=== PATIENT | female | born 1935 | race Caucasian/White ===

== ENCOUNTER 2018-02-05 05:35 | Observation (INO) | payer MEDICARE ==
[2018-02-05] MEDS ORDERED: NS 0.9% 1000 ML* 1,000 ML IV ONE (05:49)
--- OUTSIDE RECORDS SUMMARY | 2018-02-05 05:51 | XMS REPORT ---
:1935 External Reference #:[id number] Author Organization [facility] Address [address] [address] Phone [phone] Care Team Providers Name Role Phone Samuel Dinero MD Primary Care Physician Unavailable Payers Type Date Identification Numbers Payment Provider Subscriber Commercial Policy Number: [id number] [employer] Medicare Jessie Panda PayID: [id number] [address] [place] [address] Health Maintenance Effective: Policy Number: [place] [place] 10/26/2012 [id number] Aj Panda Expires: 10/21/2014 PayID: [id number] [address] [address] SHRUTI Matos [address] Medigap Part B Expires: 04/21/2010 Policy Number: [id number] BS Of ZOYA Panda PayID: [id number] [address] [address] SHRUT[place] Matos [address] Medigap Part B Effective: 04/21/2010 Policy Number: BS Of ZOYA Panda [id number] Expires: 10/22/2011 PayID: [id number] [address] [address] SHRUTI Matos [address] Medigap Part B Effective: 11/22/2011 Policy Number: JERRY Alfonzo Panda [id number] Expires: 09/21/2012 PayID: [id number] [address] [address] SHRUTI Matos [address] Problems Date Description Provider Status Onset: 03/13/2013 Monoclonal paraproteinemia Samuel Dinero M.D.,FACP Active Onset: 02/09/2017 Chronic kidney disease stage 3 Royce Jim NP Active Onset: 10/28/2007 Essential hypertension Samuel Dinero M.D.,FACP Active Onset: 10/28/2007 Mixed hyperlipidemia Samuel Dinero M.D.,FACP Active Onset: 10/28/2007 Allergic rhinitis Samuel Dinero M.D.,FACP Active Onset: 12/19/2007 Osteoarthritis Samuel Dinero M.D.,FACP Active Onset: 06/27/2011 Sciatica Ilda Acuna, N.P. Active Onset: 11/08/2012 Gout Samuel Dinero M.D.,FACP Active Onset: 01/27/2013 Impaired fasting glycaemia Samuel Dinero M.D.,FACP Active Onset: 08/30/2015 Do not resuscitate Samuel Dinero M.D.,FACP Active Onset: 08/24/2017 Anemia Samuel Dinero M.D.,FACP Active Note: related to CKD, not iron-def Onset: 01/12/2011 Benign essential hypertension Samuel Dinero M.D.,FACP Inactive Inactive: 01/27/2013 Onset: 01/25/2011 Pancytopenia Samuel Dinero M.D.,FACP Inactive Inactive: 01/27/2013 Onset: 10/26/2009 Disorder of iron metabolism Samuel Dinero M.D.,FACP Inactive Inactive: 08/24/2017 Onset: 10/28/2007 Osteoporosis Samuel Dinero M.D.,FACP Resolved Resolved: 01/26/2012 Family History Date Family Member(s) Problem(s) Comments Father due to Vascular Disease () Mother due to [place] () Mother Hypertension Mother due to Stroke () Mother Angina Children 2 Children , no liver disease Social History Type Date Description Comments Marital Status Occupation Retired Cigarette Use Never Smoked Cigarettes ETOH Use 10/23/2017 Denies alcohol use Recreational Drug Use Denies Drug Use Smoking Patient has never smoked General Hx Text 2 kids Allergies, Adverse Reactions, Alerts Date Description Reaction Status Severity Comments 10/28/2007 Pneumovax active 10/28/2007 Sulfa active 04/27/2008 shellfish sensity can have small amounts active gi distress 02/20/2011 Citalopram active N/V/dizzy 09/08/2013 CT Contrast Dye active Medications Medication Date Status Form Strength Qnty SIG Indications Ordering Provider Gingeratusgiuliano ac 02/04 Active Syrup 100-10mg/ 473ml 10 5ML milliliter Bennett Dinero, s by mouth M.D.,FACP four times a day as needed Oseltamivir 01/31 Active Capsules 75mg 10cap 1 by mouth Luisa Phosphate s twice Cotton, daily for M.D. 5 days Lisinopril 09/05 Active Tablets 10mg 90tab 1 by I10 s mouth Bennett Dinero, every day M.D.,FACP Ipratropium 07/19 Active Solution 0.03% 30ml spray 1-2 D47.2 Beatrice sprays in Bennett Dinero, each M.D.,FACP nostril before meals as needed Lipitor 06/02 Active Tablets 20mg 90tab Take 1 E78.2 Darnell s Tablet Pachikara, Every M.D. Evening Proair HFA 03/22 Active Aerosol 108(90Bas 1unit 1 puff 786.07 Royce e) s every 4 Finnish, [employer] mcg/Act hours as needed for chest tightness or wheezing Hydrocodone-Acet 07/16 Active Tablets 5-325mg 30tab 1/2-1 tab M54.5 Samuel aminophen s by mouth Bennett Dinero, q4 hours M.D.,FACP as needed pain Systane 04/27 Active Solution prn Samuel Bennett Dinero M.D.,FACP Citracal + D 10/28 Active Tablets 1Tab 1 po qd Samuel Bennett Dinero M.D.,FACP C-500 Active 2 po qd Samuel Bennett Dinero M.D.,FACP Fatoumata Low Active Tablets DR 81mg I10 Samuel Bennett Dinero M.D.,FACP Vitamin B12 Active Tablets ER 500mg 1 po per Unknown /0000 day Tylenol 00 Active Tablet 500mg/15M 1-2 every Unknown 0000 L 6 hours or prn Docusate Calcium Active Capsules 240mg 90cap 1 by mouth Unknown s daily as needed for constipati on Fish Oil Active Capsules 1000mg 2 by mouth every day Loratadine Active Tablets 10mg 1/2 by Unknown mouth every day One Daily For Active Tablets 1 by mouth Unknown every day Cheratussin ac 10/25 Hx Syrup 100-10mg/ 473ml 10 5ML milliliter Bennett Dinero, - s by mouth M.D[facility] 11/04 four times /2017 a day as needed Tamiflu 10/23 Hx Capsules 75mg 10cap 1 by mouth J11.89 s twice a Bennett Dinero, - day x 5 M.D.,[facility] Irbesartan 08/24 Hx Tablets 150mg 30tab 1 by mouth I10 s every day Bennett Dinero, - M.Bennett,[facility] 09/05 Betamethasone 03/07 Hx Cream 0.05% 15gm apply L23.9 Royce Dipropionate topically Hernán [employer] - to 08/23 effect area bid till rash resolves Tamiflu 11/28 Hx Capsules 75mg 10cap 1 cap by J11.1 Royce s mouth NEIDA Jim - twice a 12/03 day x's days Lisinopril 09/28 Hx Tablets 10mg 135ta 1 /2 by I10 Samuel /2015 bs mouth Bennett Dinero, - every day M.DPeter,[facility] 08/24 Macrobid 08/25 Hx Capsules 100mg 10cap 1 cap by N39.0 Royce s mouth q12 Hernán [employer] - hours x 08/30 5d Triamcinolone 06/05 Hx Cream 0.1% 30g apply L30.9 Samuel Acetonide /2015 every day Bennett Dinero, - as needed M.DPeter,[facility] 08/23 to on feet/legs Dymista 06/05 Hx Suspension 137-50mcg 69gm 1 spray D47.2 Samuel /2015 /Act each Bennett Dinero, - nostril M.D.,FACP 07/19 daily prn Fluticasone 06/05 Hx Suspension 50mcg/Act 1unit Use 1 J02.9 Samuel s [place] In Bennett Dinero, - Each M.D.,FACP 08/09 Nostril Once Daily In The Morning Amoxicillin/Clav Hx Tablets 875-125mg 20tab 1 tablet J01.90 Royce ulanate /2015 s by mouth Finnish, [employer] Potassium - twice a 12/29 day x's days Tessalon Perles Hx Capsules 100mg 30cap 1 capsule J01.90 Royce s by mouth Finnish, [employer] - three 01/02 times a day as needed Gabapentin 08/30 Hx Capsules 100mg 60cap 1-2 tabs G47.62 s po qhs to Bennett Dinero, - prevent M.D.,FACP 09/06 leg cramps. Flonase Allergy 06/29 Hx Suspension 50mcg/Act 16uni Use 2 J02.9 Royce Relief ts Sprays In Finnish, [employer] - Each 06/05 Nostril Daily In The Morning. Triamcinolone 03/22 Hx Cream 0.1% 1unit apply 782.1 Royce Acetonide s topically Finnish, [employer] - twice a 04/01 day to affected area Flonase 03/22 Hx Suspension 50mcg/Act 16uni Use 2 ts Sprays In Bennett Dinero, - Each M.D.,FACP 06/29 Nostril Daily In The Morning. Tessalon Perles 10/30 Hx Capsules 100mg 30cap 1-2 by s mouth Bennett Dinero, - three M.D.,FACP 01/28 times a day as needed Lisinopril 02/11 Hx Tablets 20mg 30tab Take 10/23 s Tablet By Bennett Dinero, - Mouth Once M.D.,FACP 11/27 Daily Flector 11/08 Hx Patches 1.3% 30uni topically 715.16 ts qd prn Ryley Marquez M.D.,[facility] 03/25 Naproxen 11/04 Hx Tablets 500mg 60tab 1 po bid s prn Ryley Marquez M.D.,[facility] 11/08 Colcrys 10/21 Hx Tablets 0.6mg 30tab 2 tabs po s X1, then Bennett Dinero, - repeat 1 M.DPeter,[facility] 07/10 tab in hr, then qd prn Indomethacin 10/11 Hx Capsules 50mg 12cap 1 cap po s tid x 2 Kalpana, - days, 1 N.P. 10/21 cap bid 2 days, 1 cap qd x 2 days Finger Splint 10/03 Hx Misc 1unit please fit 719.44 s Kalpana, - N.P. 11/08 Zestril 06/28 Hx Tablets 10mg 90tab 1 po qd Ryley Obregon M.D.,[facility] 02/11 Meclizine HCL 03/08 Hx Tablets 12.5mg 30tab bid prn 780.4 Ryley Obregon M.D.,[facility] 03/27 Atorvastatin 02/14 Hx Tablets 20mg 90tab take 1 272.2 s tablet by Bennett Dinero, - mouth in M.DPeter,[facility] 06/02 evening Gas-X Extra 09/12 Hx Chewtabs 125mg Kika Strength /2010 Ryley Anderson M.D. 01/25 Cyclobenzaprine 09/12 Hx Tablets 5mg 5tabs 1 tab by 848.3 Kika HCL /2010 mouth Justin, - every M.D. 09/26 Hydrocodone 06/27 Hx Tablets 5-500mg 30tab 10/23 tab 724.3 Samuel Bitartrate/Apap s qhs prn Ryley Marquez M.D.,[facility] 11/08 Simethicone 08/23 Hx Chewtabs 80mg 120un 1 tab PO 787.3 its qid prn Ryley Marquez M.D.,[facility] 06/27 Align 06/13 Hx Capsules 4mg 30cap 1 po qd 787.3 s Ryley Marquez M.D.,[facility] 03/27 Citrucel 06/13 Hx Tablets 500mg 60tab 2 tab po 787.3 s qd Ryley Marquez M.D.,[facility] 09/12 Fluticasone 05/22 Hx Suspension 50mcg/Act 1unit Use 2 Samuel Propionate s Sprays In Bennett Dinero, - Each M.DPeter,[facility] 11/08 Nostril Once Daily In The Morning. Fluticasone 05/22 Hx Suspension 50mcg/Act 16uni Use 2 Propionate ts Sprays In Bennett Dinero, - Each M.DPeter,[facility] 03/22 Nostril Once Daily In The Morning Citalopram 01/12 Hx Tablets 10mg 90tab 1 po qd 780.79 Samuel Hydrobromide Ryley Obregon M.D.,[facility] 02/20 Alendronate 01/10 Hx Tablets 70mg 4tabs Take 1 Sodium Tablet By Bennett Dinero, - Mouth Once M.D.,[facility] 01/12 Weekly. Amoxicillin/Clav 11/15 Hx Tablets 875-125mg 20tab 1 po bid 461.9 Darnell anate s Susan Juares M.D. 01/09 Folic Acid 07/14 Hx Tablets 1mg 30tab Take 1 D52.9 Royce s Tablet By NEIDA Jim - Mouth 11/28 Daily. (not taking) Doxycycline 06/28 Hx 100mg 20uni 1 cap bid 066.1 Ryley Santiago M.D. 07/14 Doxycycline 06/23 Hx 100mg 20uni 1 cap bid Ryley Santiago M.D. 06/28 Hydrocodone-Acet 06/08 Hx Tablets 5/500mg 10tab 1 q6 hours 477.9 Pb Murillo aminophen /2008 s prn Ryley Marquez M.D.,[facility] 01/12 Lipitor 01/02 Hx Tablets 20mg 90tab Take 1 272.2 s Tablet By Bennett Dinero, - Mouth In M.DPeter,[facility] 02/14 Evening Foltx Hx Tablets 90tab Daily 281.2 Samuel Ryley Obregon M.D.,[facility] 07/14 Fluticasone Hx Suspension 50mcg/Act 1unit 1 [place] Samuel Propionate / kody Dinero, - Nostril In Vanessa.DPeter,[facility] 02/20 Simvastatin Hx Tablets 20mg 30tab 1 PO qpm Samuel Ryley Obregon M.D.,[facility] 01/02 Abc Plus Multi Hx one daily Sameul Vitamin Ryley Marquez M.D.,[facility] 03/25 Fosamax Hx Tablets 70mg 4tabs 1 Tablet Darnell po Weekly Ryley Juares M.D. 01/10 [place]-3 Hx Capsules 1000mg 1PO qd Samuel Ryley Marquez M.D.,[facility] 01/28 Citracal Hx 400Iu one daily Samuel Ryley Marquez M.D.,[facility] 10/28 Econazole Hx Cream 1% 15Gra Apply To Unknown Nitrate ms Affected - Area bid 01/25 Max Weeks Fluticasone Hx apply to Unknown Propionate affected - area as 02/20 Vitamin C Hx Tablets 500mg 1 po qd - 09/12 Vitamin B-12 LA Hx Tablets ER 1000mcg 1 daily Unknown - 03/27 Lisinopril Hx Tablets 20mg 30tab Take 1/2 Samuel s Tablet By Bennett Dinero, - Mouth Once M.DPeter,[facility] 06/28 Hydrocodone/Acet 00 Hx Tablets 5-500mg 60tab 1/2-1 Samuel aminophen /0000 s tablet q4h Bennett Dinero, - prn M.D.,[facility] 09/12 Benadryl Hx Capsules 25mg 30cap 1 po q4h Unknown /0000 s for - allergy to 01/28 dye Clarinex Hx Tablets 5mg 30tab Take 1 Samuel /0000 s Tablet By Bennett Dinero, - Mouth Once M.D.,[facility] 11/28 Immunizations CPT Code Status Date Vaccine Lot # [id number] Given 08/24/2017 Influenza Virus Vaccine, Quadrivalent, Split, [id number] Preservative Free 74601 Given 08/09/2016 Influenza Virus Vaccine, Quadrivalent, Split [id number] Virus, [place] Use [address] Given 08/03/2015 Fluzone High Dose 10664 Given 08/10/2014 Tdap - Tetanus/Diptheria/Acellular Pertussis [id number] 54926 Given 08/10/2014 Flu Vaccine Split Virus Preservative Free For Indiv 3Yr Older 07974 Given 08/10/2014 Flu Vaccine Split Virus Preservative Free For [id number] Indiv 3Yr Older 86262 Given 07/16/2013 Flu Vaccine Split Virus Preservative Free For [id number] Indiv 3Yr Older Q2038 Given 07/17/2012 Fluzone Vaccine [id number] Given 07/28/2011 Afluria Vaccine [id number] 56438 Given 08/17/2010 Influenza Virus 3Yrs & Over [id number] 70508 Given 10/01/2009 Influenza Virus Vaccine, Pandemic Formulation 25712 Given 10/01/2009 Influenza Virus Vaccine, Pandemic Formulation [id number] [id number] 66986 Given 08/05/2009 Influenza Virus 3Yrs & Over 99763 Given 08/05/2009 Influenza Virus 3Yrs & Over [id number] 85974 Given 07/31/2008 Influenza Virus 3Yrs & Over 90478 Given 07/31/2008 Influenza Virus 3Yrs & Over [id number] 68813 Given 08/05/2007 Zoster (Zostavax) 06975 Given 10/22/2002 Td Toxoids Adsorbed For Use 7Yrs Or Older For Intramuscular Use 56369 Refused 01/26/2012 Pneumonia Vaccine Vital Signs Date Vital Result Comment 01/31/2018 Weight 198.00 lb Heart Rate 92 /min BP Systolic Sitting 152 mmHg BP Diastolic Sitting 80 mmHg Body Temperature 99.6 F O2 % BldC Oximetry 95 % 10/23/2017 Weight 202.00 lb w/coat and shoes Heart Rate 86 /min BP Systolic Sitting 168 mmHg BP Diastolic Sitting 84 mmHg Body Temperature 99.3 F O2 % BldC Oximetry 95 % 09/27/2017 Weight 199.00 lb Heart Rate 88 /min BP Systolic Sitting 148 mmHg BP Diastolic Sitting 62 mmHg Body Temperature 98.1 F O2 % BldC Oximetry 98 % 09/18/2017 Weight 195.25 lb Heart Rate 73 /min BP Systolic Sitting 118 mmHg BP Diastolic Sitting 72 mmHg O2 % BldC Oximetry 99 % 08/24/2017 Height 65.5 inches 5'5.50" Weight 201.00 lb Heart Rate 84 /min BP Systolic Sitting 138 mmHg BP Diastolic Sitting 70 mmHg Body Temperature 98.4 F O2 % BldC Oximetry 98 % BMI (Body Mass Index) 32.9 kg/m2 07/19/2017 Weight 197.00 lb Heart Rate 81 /min BP Systolic Sitting 144 mmHg BP Diastolic Sitting 66 mmHg Body Temperature 98.5 F O2 % BldC Oximetry 97 % 03/07/2017 Weight 195.38 lb Heart Rate 83 /min BP Systolic 116 mmHg BP Diastolic 68 mmHg Body Temperature 98.4 F O2 % BldC Oximetry 94 % 02/09/2017 Height 65.5 inches 5'5.50" Weight 193.50 lb Heart Rate 87 /min BP Systolic Sitting 126 mmHg BP Diastolic Sitting 70 mmHg Body Temperature 99.0 F O2 % BldC Oximetry 97 % BMI (Body Mass Index) 31.7 kg/m2 12/19/2016 Weight 197.25 lb Heart Rate 82 /min BP Systolic Sitting 134 mmHg BP Diastolic Sitting 70 mmHg Body Temperature 9.8 F O2 % BldC Oximetry 97 % 11/28/2016 Weight 190.00 lb Heart Rate 75 /min BP Systolic Sitting 140 mmHg BP Diastolic Sitting 64 mmHg Body Temperature 99.0 F O2 % BldC Oximetry 98 % 08/25/2016 Height 66 inches 5'6" Weight 192.00 lb Heart Rate 92 /min BP Systolic Sitting 108 mmHg BP Diastolic Sitting 62 mmHg Body Temperature 99.2 F O2 % BldC Oximetry 96 % BMI (Body Mass Index) 31.0 kg/m2 08/09/2016 Height 66 inches 5'6" Weight 194.00 lb Heart Rate 68 /min BP Systolic Sitting 142 mmHg BP Diastolic Sitting 78 mmHg Body Temperature 97.7 F O2 % BldC Oximetry 96 % BMI (Body Mass Index) 31.3 kg/m2 06/05/2016 Weight 192.00 lb Heart Rate 75 /min BP Systolic 118 mmHg BP Diastolic 70 mmHg Body Temperature 98.2 F O2 % BldC Oximetry 97 % 02/21/2016 Weight 187.00 lb Heart Rate 88 /min BP Systolic Standing 138 mmHg BP Diastolic Standing 80 mmHg Body Temperature 98.7 F Pain Level 10 L lower back, buttock, legs O2 % BldC Oximetry 95 % 02/04/2016 Height 66 inches 5'6" Weight 192.00 lb Heart Rate 78 /min BP Systolic Sitting 138 mmHg BP Diastolic Sitting 78 mmHg Body Temperature 97.0 F O2 % BldC Oximetry 98 % BMI (Body Mass Index) 31.0 kg/m2 12/20/2015 Height 66 inches 5'6" Weight 190.50 lb Heart Rate 80 /min BP Systolic Sitting 138 mmHg BP Diastolic Sitting 80 mmHg Body Temperature 98.4 F O2 % BldC Oximetry 96 % BMI (Body Mass Index) 30.7 kg/m2 10/01/2015 Height 66 inches 5'6" Weight 197.50 lb Heart Rate 70 /min BP Systolic Sitting 134 mmHg BP Diastolic Sitting 60 mmHg Body Temperature 98.3 F O2 % BldC Oximetry 96 % BMI (Body Mass Index) 31.9 kg/m2 08/30/2015 Height 66 inches 5'6" Weight 189.00 lb Heart Rate 80 /min BP Systolic Sitting 104 mmHg BP Diastolic Sitting 60 mmHg Body Temperature 97.6 F O2 % BldC Oximetry 97 % BMI (Body Mass Index) 30.5 kg/m2 03/22/2015 Height 66 inches 5'6" Weight 195.00 lb Heart Rate 81 /min BP Systolic Sitting 134 mmHg BP Diastolic Sitting 70 mmHg Body Temperature 97.5 F O2 % BldC Oximetry 97 % BMI (Body Mass Index) 31.5 kg/m2 01/29/2015 Height 66 inches 5'6" Weight 198.00 lb Heart Rate 74 /min BP Systolic Sitting 118 mmHg BP Diastolic Sitting 68 mmHg Body Temperature 98.1 F O2 % BldC Oximetry 95 % BMI (Body Mass Index) 32.0 kg/m2 08/10/2014 Weight 195.25 lb Heart Rate 84 /min BP Systolic Sitting 128 mmHg BP Diastolic Sitting 66 mmHg Body Temperature 98.7 F 07/16/2014 Height 66 inches 5'6" Weight 195.50 lb Heart Rate 69 /min BP Systolic Sitting 122 mmHg BP Diastolic Sitting 68 mmHg Body Temperature 97.3 F O2 % BldC Oximetry 98 % BMI (Body Mass Index) 31.6 kg/m2 01/28/2014 Height 66 inches 5'6" Weight 210.75 lb Heart Rate 80 /min BP Systolic Sitting 144 mmHg BP Diastolic Sitting 75 mmHg Respiratory Rate 14 /min BMI (Body Mass Index) 34.0 kg/m2 12/10/2013 Weight 212.00 lb Heart Rate 88 /min BP Systolic Sitting 128 mmHg BP Diastolic Sitting 70 mmHg 09/12/2013 Height 65.5 inches 5'5.50" Weight 204.75 lb Heart Rate 84 /min BP Systolic Sitting 124 mmHg BP Diastolic Sitting 58 mmHg BMI (Body Mass Index) 33.6 kg/m2 09/01/2013 Weight 206.00 lb Heart Rate 82 /min BP Systolic Sitting 124 mmHg BP Diastolic Sitting 82 mmHg 07/16/2013 Weight 198.00 lb Heart Rate 82 /min BP Systolic Sitting 134 mmHg BP Diastolic Sitting 68 mmHg 07/10/2013 Height 66 inches 5'6" Weight 205.50 lb Heart Rate 80 /min BP Systolic Sitting 120 mmHg BP Diastolic Sitting 64 mmHg BMI (Body Mass Index) 33.2 kg/m2 03/25/2013 Weight 209.00 lb Heart Rate 82 /min BP Systolic Sitting 122 mmHg BP Diastolic Sitting 78 mmHg 01/27/2013 Height 66 inches 5'6" Weight 204.00 lb Heart Rate 80 /min BP Systolic Sitting 130 mmHg BP Diastolic Sitting 62 mmHg BMI (Body Mass Index) 32.9 kg/m2 11/08/2012 Height 66 inches 5'6" Weight 208.00 lb Heart Rate 80 /min BP Systolic Sitting 140 mmHg BP Diastolic Sitting 78 mmHg BMI (Body Mass Index) 33.6 kg/m2 10/03/2012 Height 67 inches 5'7" Weight 209.00 lb Heart Rate 74 /min BP Systolic Sitting 128 mmHg BP Diastolic Sitting 80 mmHg BMI (Body Mass Index) 32.7 kg/m2 03/27/2012 Height 67 inches 5'7" Weight 203.00 lb Heart Rate 76 /min BP Systolic Sitting 148 mmHg BP Diastolic Sitting 70 mmHg Body Temperature 99.3 F BMI (Body Mass Index) 31.8 kg/m2 03/22/2012 Weight 205.00 lb Heart Rate 78 /min BP Systolic Sitting 120 mmHg BP Diastolic Sitting 70 mmHg 03/08/2012 Weight 204.00 lb Heart Rate 92 /min BP Systolic Sitting 126 mmHg BP Diastolic Sitting 82 mmHg Body Temperature 97.6 F rt ear 01/26/2012 Height 65.5 inches 5'5.50" Weight 200.00 lb Heart Rate 82 /min BP Systolic Sitting 124 mmHg BP Diastolic Sitting 70 mmHg BMI (Body Mass Index) 32.8 kg/m2 09/26/2011 Height 65.5 inches 5'5.50" Weight 193.50 lb Heart Rate 72 /min BP Systolic Sitting 140 mmHg BP Diastolic Sitting 64 mmHg BMI (Body Mass Index) 31.7 kg/m2 09/12/2011 Height 65.5 inches 5'5.50" Weight 192.25 lb Heart Rate 92 /min BP Systolic Sitting 126 mmHg BP Diastolic Sitting 80 mmHg BMI (Body Mass Index) 31.5 kg/m2 09/12/2011 Height 67 inches 5'7" 06/27/2011 Height 67 inches 5'7" Weight 195.00 lb Heart Rate 72 /min BP Systolic Sitting 128 mmHg BP Diastolic Sitting 58 mmHg BMI (Body Mass Index) 30.5 kg/m2 06/13/2011 Weight 194.00 lb Heart Rate 88 /min BP Systolic Sitting 128 mmHg BP Diastolic Sitting 72 mmHg Body Temperature 98.8 F 02/20/2011 Weight 200.00 lb Heart Rate 84 /min BP Systolic Sitting 110 mmHg BP Diastolic Sitting 68 mmHg 01/12/2011 Weight 199.00 lb Heart Rate 72 /min BP Systolic Sitting 120 mmHg BP Diastolic Sitting 72 mmHg 11/15/2010 Weight 192.00 lb Heart Rate 83 /min BP Systolic Sitting 124 mmHg BP Diastolic Sitting 80 mmHg Body Temperature 97.8 F 07/14/2010 Weight 192.00 lb Heart Rate 74 /min BP Systolic Sitting 132 mmHg BP Diastolic Sitting 74 mmHg 06/28/2010 Weight 192.00 lb Heart Rate 83 /min BP Systolic Sitting 116 mmHg BP Diastolic Sitting 62 mmHg 10/26/2009 Weight 202.00 lb Heart Rate 76 /min BP Systolic Sitting 134 mmHg BP Diastolic Sitting 74 mmHg 06/08/2009 Height 67 inches 5'7" Weight 199.75 lb Heart Rate 80 /min BP Systolic Sitting 132 mmHg BP Diastolic Sitting 74 mmHg BMI (Body Mass Index) 31.3 kg/m2 11/12/2008 Height 67 inches 5'7" Weight 200.00 lb Heart Rate 84 /min BP Systolic Sitting 130 mmHg BP Diastolic Sitting 64 mmHg Body Temperature 98.9 F BMI (Body Mass Index) 31.3 kg/m2 04/27/2008 Height 67 inches 5'7" Weight 194.00 lb Heart Rate 88 /min BP Systolic Sitting 130 mmHg BP Diastolic Sitting 62 mmHg Respiratory Rate 16 /min Body Temperature 98.1 F BMI (Body Mass Index) 30.4 kg/m2 01/03/2008 Height 67 inches 5'7" Weight 199.00 lb Heart Rate 70 /min BP Systolic Sitting 120 mmHg BP Diastolic Sitting 64 mmHg BMI (Body Mass Index) 31.2 kg/m2 12/19/2007 Height 67 inches 5'7" Weight 199.00 lb Heart Rate 80 /min BP Systolic Sitting 132 mmHg BP Diastolic Sitting 60 mmHg BMI (Body Mass Index) 31.2 kg/m2 10/28/2007 Height 67 inches 5'7" Weight 198.00 lb Heart Rate 72 /min BP Systolic Sitting 130 mmHg BP Diastolic Sitting 70 mmHg Respiratory Rate 20 /min BMI (Body Mass Index) 31.0 kg/m2 Results Test Date Test Result H/L Range Note Rapid Influenza A & 01/31/2018 Influenza A Molecular NEGATIVE Negative 1 B Molecular Influenza B Molecular POSITIVE Negative Laboratory test 01/31/2018 Influenza A & B SEE RESULT BELOW 2 finding Request Laboratory test 10/23/2017 Rapid Strep Negative Negative 3 finding Molecular Laboratory test 10/23/2017 Influenza A & B SEE RESULT BELOW 4 finding Request Rapid Influenza A 10/23/2017 Influenza A Molecular NEGATIVE Negative 5 & B Molecular Influenza B Molecular NEGATIVE Negative Laboratory test finding 10/23/2017 Rapid Strep A Request SEE RESULT BELOW 6 Urinalysis Profile 09/18/2017 Urine Color Yellow Urine Appearance Clear Urine Specific [place] 1.010 1.010-1.030 Urine pH 5.0 5-9 Urine Urobilinogen Negative Negative Urine Ketones Negative Negative Urine Protein Negative Negative Urine Leukocytes Trace Negative Urine Blood Negative Negative * * Negative 7 Urine Nitrite Negative Negative Urine Bilirubin Negative Negative Urine Glucose Negative Negative Urine White Blood Cell Trace(0-5/hpf) Absent Urine Red Blood Cell Trace(0-2/hpf) Absent Urine Bacteria Absent Absent Urine Culture And 09/18/2017 Urine Culture SEE RESULT BELOW 8 Sensitivities Ua Routine 07/19/2017 Ua Specific [place] 1.020 Ua PH 5 Ua Color yellow Ua Appera clear Ua WBC + Ua Protein trace Ua Glucose normal Ua Ketones neg Ua Bilirubin neg Ua Urobilinogen normal Ua Nitrite neg Ua Occult Blood trace Urine Culture And 07/19/2017 Urine Culture SEE RESULT BELOW 9 Sensitivities Laboratory test finding 07/19/2017 Erythrocyte Sed Rate 39 mm/Hr 0-40 C Reactive Protein 1.34 mg/L < 5.00 10 CBC Auto Diff 07/19/2017 White Blood Count 5.3 10^3/uL 3.5-10.8 Red Blood Count 3.70 10^6/uL Low 4.0-5.4 Hemoglobin 11.6 g/dL Low 12.0-16.0 Hematocrit 34 % Low 35-47 Mean Corpuscular Volume 93 fL 80-97 Mean Corpuscular Hemoglobin 32 pg High 27-31 Mean Corpuscular HGB Conc 34 g/dL 31-36 Red Cell Distribution Width 13 % 10.5-15 Platelet Count 133 10^3/uL Low 150-450 Mean Platelet Volume 9 um3 7.4-10.4 Abs Neutrophils 3.3 10^3/uL 1.5-7.7 Abs Lymphocytes 1.4 10^3/uL 1.0-4.8 Abs Monocytes 0.3 10^3/uL 0-0.8 Abs Eosinophils 0.2 10^3/uL 0-0.6 Abs Basophils 0 10^3/uL 0-0.2 Abs Nucleated RBC 0.01 10^3/uL Granulocyte % 62.1 % 38-83 Lymphocyte % 27.1 % 25-47 Monocyte % 5.8 % 1-9 Eosinophil % 4.2 % 0-6 Basophil % 0.8 % 0-2 Nucleated Red Blood Cells % 0.1 Protein Electrophoresis 07/19/2017 Total Protein(Pep) 7.1 g/dL 6.3 - 7.9 Albumin 3.8 g/dL 3.4-4.7 Alpha-1 Globulin 0.3 g/dL 0.1-0.3 Alpha-2 Globulin 1.2 g/dL 0.6-1.0 Beta Globulin 1.0 g/dL 0.7-1.2 Gamma Globulin 0.9 g/dL 0.6-1.6 Albumin/Globulin Ratio 1.14 Impression See Comment 11 Comp Metabolic Panel 07/19/2017 Sodium 138 mmol/L 133-145 Chloride 105 mmol/L 101-111 Co2 Carbon Dioxide 29 mmol/L 22-32 Glucose 89 mg/dL 70-100 Blood Urea Nitrogen 30 mg/dL High 6-24 Creatinine 1.35 mg/dL High 0.51-0.95 BUN/Creatinine Ratio 22.2 High 8-20 Calcium 10.1 mg/dL 8.6-10.3 Total Protein 6.7 g/dL 6.4-8.9 Albumin 4.4 g/dL 3.2-5.2 Globulin 2.3 g/dL 2-4 Albumin/Globulin Ratio 1.9 1-3 Total Bilirubin 0.40 mg/dL 0.2-1.0 Alkaline Phosphatase 59 U/L 34-104 Alt 18 U/L 7-52 Ast 25 U/L 13-39 Egfr Non- 37.5 >60 Egfr 48.3 >60 12 Potassium 5.1 mmol/L High 3.5-5.0 Anion Gap 4 mmol/L 2-11 Myasthenia Gravis (), 07/19/2017 MG Lambert-Eaton Interpret See Comment 13 Adult Acetylcholine Receptor Binding 0.00 nmol/L <=0.02 14 Acetylcholine Recept Mod Ab 0 % 15 Anti-Striated Muscle Antibody Negative titer <1:120 16 Basic Metabolic Panel 02/01/2017 Sodium 137 mmol/L 133-145 Potassium 4.8 mmol/L 3.5-5.0 Chloride 104 mmol/L 101-111 Co2 Carbon Dioxide 28 mmol/L 22-32 Anion Gap 5 mmol/L 2-11 Glucose 90 mg/dL 70-100 Blood Urea Nitrogen 24 mg/dL 6-24 Creatinine 1.19 mg/dL High 0.51-0.95 BUN/Creatinine Ratio 20.2 High 8-20 Calcium 10.2 mg/dL 8.6-10.3 Egfr Non- 43.4 >60 Egfr 55.8 >60 17 Lipid Profile (Trig/Chol/HDL) 02/01/2017 Triglycerides 101 mg/dL 18 Cholesterol 165 mg/dL 19 HDL Cholesterol 70.0 mg/dL 20 LDL Cholesterol 75 mg/dL 21 Ua Routine 08/25/2016 Ua Specific [place] 1.015 Ua PH 6 Ua Color dark yellow Ua Appera clear Ua WBC + Ua Protein neg Ua Glucose norm Ua Ketones neg Ua Bilirubin neg Ua Urobilinogen norm Ua Nitrite neg Ua Occult Blood neg Lipid Profile (Trig/Chol/HDL) 01/26/2016 Triglycerides 91 mg/dL 22 Cholesterol 165 mg/dL 23 HDL Cholesterol 73.3 mg/dL 24 LDL Cholesterol 74 mg/dL 25 Basic Metabolic Panel 01/26/2016 Sodium 138 mmol/L 133-145 Potassium 4.8 mmol/L 3.5-5.0 Chloride 105 mmol/L 101-111 Co2 Carbon Dioxide 26 mmol/L 22-32 Anion Gap 7 mmol/L 2-11 Glucose 93 mg/dL 70-100 Blood Urea Nitrogen 30 mg/dL High 6-24 Creatinine 1.25 mg/dL High 0.51-0.95 BUN/Creatinine Ratio 24.0 High 8-20 Calcium 10.2 mg/dL 8.6-10.3 Egfr Non- 41.1 >60 Egfr 52.9 >60 26 Laboratory test finding 01/26/2016 Uric Acid 6.7 mg/dL High 2.3-6.6 27 Basic Metabolic Panel 08/30/2015 Sodium 136 mmol/L 133-145 Potassium 5.0 mmol/L 3.5-5.0 Chloride 102 mmol/L 101-111 Co2 Carbon Dioxide 29 mmol/L 22-32 Anion Gap 5 mmol/L 2-11 Glucose 75 mg/dL 70-100 Blood Urea Nitrogen 33 mg/dL High 6-24 Creatinine 1.40 mg/dL High 0.51-0.95 BUN/Creatinine Ratio 23.6 High 8-20 Calcium 10.4 mg/dL High 8.6-10.3 Egfr Non- 36.1 >60 Egfr 46.4 >60 28 Laboratory test finding 08/30/2015 Magnesium 2.2 mg/dL 1.9-2.7 Lipid Profile (Trig/Chol/HDL) 01/25/2015 Triglycerides 104 mg/dL 29, 30 Cholesterol 166 mg/dL 29, 31 HDL Cholesterol 71.4 mg/dL 29, 32 LDL Cholesterol 74 mg/dL 29, 33 Laboratory test finding 01/25/2015 Glucose 100 mg/dL 70-100 29, 34 CBC With Manual Diff 05/04/2014 White Blood Count 6.4 10^3/uL 4.8-10.8 Red Blood Count 3.65 10^6/uL Low 4.0-5.4 Hemoglobin 11.4 g/dL Low 12.0-16.0 Hematocrit 33 % Low 35-47 Mean Corpuscular Volume 92 fL 80-97 Mean Corpuscular Hemoglobin 31 pg 27-31 Mean Corpuscular HGB Conc 34 g/dL 31-36 Red Cell Distribution Width 13 % 10.5-15 Platelet Count 134 10^3/uL Low 150-450 Mean Platelet Volume 9 um3 7.4-10.4 Abs Neutrophils 3.9 10^3/uL 1.5-7.7 Abs Lymphocytes 1.8 10^3/uL 1.0-4.8 Abs Monocytes 0.4 10^3/uL 0-0.8 Abs Eosinophils 0.3 10^3/uL 0-0.6 Abs Basophils 0 10^3/uL 0-0.2 Abs Nucleated RBC 0 10^3/uL Neutrophil % 58 % 38-83 Lymphocytes % 26 % 25-47 Monocytes % 8 % 0-13 Eosinophils % 4 % 0-6 Basophil % 1 % 0-2 Reactive Lymph % 3 % 0-6 RBC Morphology Normal Normal Protein Electrophoresis 05/04/2014 Total Protein(Pep) 7.0 g/dL 6.3 - 7.9 Albumin 3.8 g/dL 3.4-4.7 Alpha-1 Globulin 0.3 g/dL 0.1-0.3 Alpha-2 Globulin 1.1 g/dL 0.6-1.0 Beta Globulin 1.0 g/dL 0.7-1.2 Gamma Globulin 0.8 g/dL 0.6-1.6 Albumin/Globulin Ratio 1.16 Impression See Comment 35 Immunofixation See Comment 36 Lipid Profile (Trig/Chol/HDL) 01/22/2014 Triglycerides 138 mg/dL 37, 38 Cholesterol 197 mg/dL 37, 39 HDL Cholesterol 62.3 mg/dL 37, 40 LDL Cholesterol 107 mg/dL 37, 41 Cytology Non-Powered [employer] Specialist 11/06/2013 S[facility] RUN DATE: <SEE NOTE> Laboratory test 09/05/2013 C Reactive Protein < 0.5 mg/dL Less than 0.5 finding Comp Metabolic Panel 09/05/2013 Sodium 137 mmol/L 133-145 Potassium 4.7 mmol/L 3.5-5.0 Chloride 103 mmol/L 101-111 Co2 Carbon Dioxide 28.0 mmol/L 22-32 Anion Gap 6.0 mmol/L 2-11 Glucose 97 mg/dL 70-100 Blood Urea Nitrogen 23 mg/dL 6-24 Creatinine 1.20 mg/dL 0.50-1.40 BUN/Creatinine Ratio 19.2 8-20 Calcium 10.2 mg/dL High 8.1-9.9 Total Protein 6.9 g/dL 6.2-8.1 Albumin 4.1 g/dL 3.2-5.2 Globulin 2.8 g/dL 2-4 Albumin/Globulin Ratio 1.5 1-3 Total Bilirubin 0.7 mg/dL 0.4-1.5 Alkaline Phosphatase 68 U/L 30-110 Alt 29 U/L 14-54 Ast 31 U/L 12-42 Egfr Non- 43.3 >60 Egfr 55.7 >60 43 CBC Auto Diff 09/05/2013 White Blood Count 6.3 10^3/uL 4.8-10.8 Red Blood Count 3.79 10^6/uL Low 4.0-5.4 Hemoglobin 10.7 g/dL Low 12.0-16.0 Hematocrit 35 % 35-47 Mean Corpuscular Volume 93 fL 80-97 Mean Corpuscular Hemoglobin 28 pg 27-31 Mean Corpuscular HGB Conc 30 g/dL Low 31-36 Red Cell Distribution Width 14 % 10.5-15 Platelet Count 145 10^3/uL Low 150-450 Mean Platelet Volume 9 um3 7.4-10.4 Abs Neutrophils 3.9 10^3/uL 1.5-7.7 Abs Lymphocytes 1.9 10^3/uL 1.0-4.8 Abs Monocytes 0.4 10^3/uL 0-0.8 Abs Eosinophils 0.2 10^3/uL 0-0.6 Abs Basophils 0 10^3/uL 0-0.2 Abs Nucleated RBC 0 10^3/uL Granulocyte % 60.9 % 38-83 Lymphocyte % 30.5 % 25-47 Monocyte % 5.6 % 1-9 Eosinophil % 2.5 % 0-6 Basophil % 0.5 % 0-2 Nucleated Red Blood Cells % 0.1 Laboratory test finding 07/07/2013 Troponin I 0.01 ng/mL 0-0.06 44 Comp Metabolic Panel 07/07/2013 Sodium 138 mmol/L 133-145 Potassium 4.1 mmol/L 3.5-5.0 Chloride 103 mmol/L 101-111 Co2 Carbon Dioxide 28.0 mmol/L 22-32 Anion Gap 7.0 mmol/L 2-11 Glucose 109 mg/dL High 70-100 Blood Urea Nitrogen 20 mg/dL 6-24 Creatinine 1.00 mg/dL 0.50-1.40 BUN/Creatinine Ratio 20.0 8-20 Calcium 9.9 mg/dL 8.1-9.9 Total Protein 6.4 g/dL 6.2-8.1 Albumin 3.8 g/dL 3.2-5.2 Globulin 2.6 g/dL 2-4 Albumin/Globulin Ratio 1.5 1-3 Total Bilirubin 0.4 mg/dL 0.4-1.5 Alkaline Phosphatase 63 U/L 30-110 Alt 17 U/L 14-54 Ast 23 U/L 12-42 Egfr Non- 53.6 >60 Egfr 69.0 >60 45 CBC Auto Diff 07/07/2013 White Blood Count 5.0 10^3/uL 4.8-10.8 Red Blood Count 3.76 10^6/uL Low 4.0-5.4 Hemoglobin 11.6 g/dL Low 12.0-16.0 Hematocrit 35 % 35-47 Mean Corpuscular Volume 92 fL 80-97 Mean Corpuscular Hemoglobin 31 pg 27-31 Mean Corpuscular HGB Conc 34 g/dL 31-36 Red Cell Distribution Width 13 % 10.5-15 Platelet Count 133 10^3/uL Low 150-450 Mean Platelet Volume 9 um3 7.4-10.4 Abs Neutrophils 3.0 10^3/uL 1.5-7.7 Abs Lymphocytes 1.4 10^3/uL 1.0-4.8 Abs Monocytes 0.3 10^3/uL 0-0.8 Abs Eosinophils 0.1 10^3/uL 0-0.6 Abs Basophils 0 10^3/uL 0-0.2 Abs Nucleated RBC 0 10^3/uL Granulocyte % 60.7 % 38-83 Lymphocyte % 28.9 % 25-47 Monocyte % 6.9 % 1-9 Eosinophil % 2.8 % 0-6 Basophil % 0.7 % 0-2 Nucleated Red Blood Cells % 0 Oncology CBC Auto Diff 05/05/2013 White Blood Count 7.6 10^3/uL 4.8-10.8 Red Blood Count 3.83 10^6/uL Low 4.0-5.4 Hemoglobin 11.9 g/dL Low 12.0-16.0 Hematocrit 36 % 35-47 Mean Corpuscular Volume 94 fL 80-97 Mean Corpuscular Hemoglobin 31 pg 27-31 Mean Corpuscular HGB Conc 33 g/dL 31-36 Red Cell Distribution Width 12 % 10.5-15 Platelet Count 144 10^3/uL Low 150-450 Mean Platelet Volume 8 um3 7.4-10.4 Abs Neutrophils 4.8 10^3/uL 1.5-7.7 Abs Lymphocytes 2.0 10^3/uL 1.0-4.8 Abs Monocytes 0.5 10^3/uL 0-0.8 Abs Eosinophils 0.2 10^3/uL 0-0.6 Abs Basophils 0.1 10^3/uL 0-0.2 Granulocyte % 64.2 % 38-83 Lymphocyte % 26.2 % 25-47 Monocyte % 6.5 % 1-9 Eosinophil % 2.0 % 0-6 Basophil % 1.1 % 0-2 Immunofixation 24HR Urine 03/10/2013 Urine Pattern: (SEE NOTE) 46 24Ur Immunofixation (SEE NOTE) 47 Urine Random Total Protein < 5 mg/dL Urine Collection Time 24 Urine Total Volume 3200 mL Immunofixation (Electro) Serum 03/10/2013 Albumin (Pep) 3.52 g/dL 3.0- 4.35 Alpha 1 Globulins 0.19 g/dL 0.09-0.33 Alpha 2 Globulin 0.97 g/dL 0.59-1.18 Beta Globulin 0.94 g/dL 0.68-1.02 Gamma Globulin 0.68 g/dL Low 0.76-1.60 Albumin % (Pep) 55.9 % 46-63 Alpha 1 Globulins % 3.0 % 1.2-5.3 Alpha 2 Globulin % 15.4 % 9-17 Beta Globulin % 14.9 % 10-16 Gamma Globulin % 10.8 % Low 12-22 Albumin/Globulin Ratio 1.3 0.9-2.0 Total Protein (Pep) 6.3 g/dL 6.2-8.1 M Arturo Gamma Region 0.19 g/dL Spep Comments (SEE NOTE) 48 Serum Immunofixation (SEE NOTE) 49 CBC With Manual Diff 02/04/2013 White Blood Count 6.5 10^3/uL 4.8-10.8 Red Blood Count 3.64 10^6/uL Low 4.0-5.4 Hemoglobin 11.2 g/dL Low 12.0-16.0 Hematocrit 34 % Low 35-47 Mean Corpuscular Volume 94 fL 80-97 Mean Corpuscular Hemoglobin 31 pg 27-31 Mean Corpuscular HGB Conc 33 g/dL 31-36 Red Cell Distribution Width 13 % 10.5-15 Platelet Count 145 10^3/uL Low 150-450 Mean Platelet Volume 9 um3 7.4-10.4 Abs Neutrophils 4.2 10^3/uL 1.5-7.7 Abs Lymphocytes 1.7 10^3/uL 1.0-4.8 Abs Monocytes 0.4 10^3/uL 0-0.8 Abs Eosinophils 0.1 10^3/uL 0-0.6 Abs Basophils 0 10^3/uL 0-0.2 Abs Nucleated RBC 0 10^3/uL Neutrophil % 67 % 38-83 Lymphocytes % 26 % 25-47 Monocytes % 5 % 0-13 Eosinophils % 2 % 0-6 RBC Morphology Normal Normal Protein Electrophoresis Serum 02/04/2013 Albumin (Pep) 3.86 g/dL 3.0- 4.35 Alpha 1 Globulins 0.18 g/dL 0.09-0.33 Alpha 2 Globulin 1.00 g/dL 0.59-1.18 Beta Globulin 0.89 g/dL 0.68-1.02 Gamma Globulin 0.67 g/dL Low 0.76-1.60 Albumin % (Pep) 58.5 % 46-63 Alpha 1 Globulins % 2.7 % 1.2-5.3 Alpha 2 Globulin % 15.2 % 9-17 Beta Globulin % 13.5 % 10-16 Gamma Globulin % 10.2 % Low 12-22 Albumin/Globulin Ratio 1.4 0.9-2.0 Total Protein (Pep) 6.6 g/dL 6.2-8.1 Spep Comments (SEE NOTE) 50 Lipid Profile (Trig/Chol/HDL) 01/21/2013 Triglycerides 112 mg/dL 40-200 Cholesterol 175 mg/dL Less than 200 HDL Cholesterol 72 mg/dL High 40-60 51 Cholesterol/HDL Ratio 2.4 Average 1-4.44 LDL Cholesterol 80.6 mg/dL Less Than 100 52 Basic Metabolic Panel 01/21/2013 Sodium 138 mmol/L 133-145 Potassium 4.7 mmol/L 3.5-5.0 Chloride 103 mmol/L 101-111 Co2 Carbon Dioxide 28.0 mmol/L 22-32 Anion Gap 7.0 mmol/L 2-11 Blood Urea Nitrogen 20 mg/dL 6-24 Creatinine 1.20 mg/dL 0.50-1.40 BUN/Creatinine Ratio 16.7 8-20 Calcium 10.3 mg/dL High 8.1-9.9 Egfr Non- 43.4 >60 Egfr 55.9 >60 53 Laboratory test finding 01/21/2013 Glucose 103 mg/dL High 70-100 Laboratory test finding 11/08/2012 Uric Acid 6.0 mg/dL 2.6-7.2 Erythrocyte Sed Rate 31 mm/Hr 0-40 Basic Metabolic Panel 11/08/2012 Sodium 132 mmol/L Low 133-145 Potassium 4.7 mmol/L 3.5-5.0 Chloride 98 mmol/L Low 101-111 Co2 Carbon Dioxide 27.0 mmol/L 22-32 Anion Gap 7.0 mmol/L 2-11 Glucose 113 mg/dL High 70-100 Blood Urea Nitrogen 25 mg/dL High 6-24 Creatinine 1.30 mg/dL 0.50-1.40 BUN/Creatinine Ratio 19.2 8-20 Calcium 10.0 mg/dL High 8.1-9.9 Egfr Non- 39.6 >60 Egfr 50.9 >60 54 Laboratory test finding 10/09/2012 Rheumatoid Factor <15 IU/mL <15 55 Cyclic Citrullinated Pept IgG <15.6 U 56 Erythrocyte Sed Rate 48 mm/Hr High 0-40 C Reactive Protein < 0.5 mg/dL Less than 0.5 CBC With Manual Diff 05/09/2012 White Blood Count 6.3 CUMM 4.8-10.8 Red Cell Count 3.22 CUMM Low 4.2-5.4 Hemoglobin 10.8 g/dL Low 12.0-16.0 Hematocrit 31 % Low 35-47 Mean Corpuscular Volume 96 um3 79-97 Mean Corpuscular Hemoglob 34 pg High 27-31 Mean Corpuscular HGB Cone 35 g/dL 32-36 Redcell Distribution WDTH 14 % 10.5-15 Platelet Count 131 CUMM Low 150-450 Mean Platelet Volume 9.1 um3 7.4-10.4 Absolute Neutrophil Count 4.2 1.5-7.7 Polysegmented Neutrophil 74 % 38-83 Lymphocyte 20 % Low 25-47 Monocyte 2 % 0-13 Eosinophil 4 % 0-6 Anisocytosis SLIGHT Retic Count 05/09/2012 Reticulocyte Count 1.40 % 0.5-1.5 Corrected Retic 1.0 % 0.5-1.5 Retic Index 0.7 Mean Retic Volume 111.3 Immature Retic Fraction 0.37 RBC Retic Count 3.22 CUMM Low 4.6-6.2 Hematocrit For Retic Coun 31 % Low 35-47 Laboratory test finding 05/09/2012 Erythropoietin 15.5 mIU/mL 2.6 - 18.5 57 Vitamin B12 978 pg/mL High 180-914 Iron & Iron Binding Capacity 05/09/2012 Iron Total 65 g/dL 28-170 Unsaturated Iron Binding 291 g/dL Total Iron Binding Capacity 356 g/dL 250-450 % Iron Saturation 18 % 15-55 CBC With Manual Diff 04/11/2012 White Blood Count 7.3 CUMM 4.8-10.8 Red Cell Count 2.82 CUMM Low 4.2-5.4 Hemoglobin 9.1 g/dL Low 12.0-16.0 Hematocrit 27 % Low 35-47 Mean Corpuscular Volume 94 um3 79-97 Mean Corpuscular Hemoglob 32 pg High 27-31 Mean Corpuscular HGB Cone 34 g/dL 32-36 Redcell Distribution WDTH 14 % 10.5-15 Platelet Count 188 CUMM 150-450 Mean Platelet Volume 8.8 um3 7.4-10.4 Absolute Neutrophil Count 5.2 1.5-7.7 Polysegmented Neutrophil 73 % 38-83 Band Neutrophil 1 % 0-8 Lymphocyte 23 % Low 25-47 Monocyte 3 % 0-13 Anisocytosis SLIGHT Hypochromasia 2+ Basic Metabolic Panel 03/24/2012 Sodium 134 mmol/L Low 135-145 Potassium 4.3 mmol/L 3.5-5.0 Chloride 103 mmol/L 101-111 Co2 (Carbon Dioxide) 25.0 mmol/L 22-32 Anion Gap 6.0 mmol/L 2-11 58 Glucose 147 mg/dL High 70-100 BUN 38 mg/dL High 6-24 Creatinine 1.1 mg/dL 0.50-1.40 One Over Creatinine 0.90 BUN/Creatinine Ratio 34.5 High 8-20 Calcium 9.4 mg/dL 8.1-9.9 eGFR Non- 48.2 > 60 eGFR 61.9 > 60 59 CBC Auto Diff 03/24/2012 White Blood Count 10.4 CUMM 4.8-10.8 Red Cell Count 3.02 CUMM Low 4.2-5.4 Hemoglobin 10.0 g/dL Low 12.0-16.0 Hematocrit 28 % Low 35-47 Mean Corpuscular Volume 93 um3 79-97 Mean Corpuscular Hemoglob 33 pg High 27-31 Mean Corpuscular HGB Cone 35 g/dL 32-36 Redcell Distribution WDTH 13 % 10.5-15 Platelet Count 128 CUMM Low 150-450 Mean Platelet Volume 8.7 um3 7.4-10.4 Absolute Neutrophil Count 9.3 High 1.5-7.7 60 Manual Differential 03/24/2012 Polysegmented Neutrophil 81 % 38-83 Band Neutrophil 7 % 0-8 Lymphocyte 10 % Low 25-47 Monocyte 2 % 0-13 RBC Morphology NORMAL CBC With Manual Diff 03/08/2012 White Blood Count 5.5 CUMM 4.8-10.8 Red Cell Count 3.76 CUMM Low 4.2-5.4 Hemoglobin 12.2 g/dL 12.0-16.0 Hematocrit 35 % 35-47 Mean Corpuscular Volume 93 um3 79-97 Mean Corpuscular Hemoglob 33 pg High 27-31 Mean Corpuscular HGB Cone 35 g/dL 32-36 Redcell Distribution WDTH 13 % 10.5-15 Platelet Count 142 CUMM Low 150-450 Mean Platelet Volume 9.0 um3 7.4-10.4 Absolute Neutrophil Count 3.7 1.5-7.7 Polysegmented Neutrophil 73 % 38-83 Lymphocyte 19 % Low 25-47 Monocyte 6 % 0-13 Eosinophil 1 % 0-6 Basophil 1 % 0-2 Anisocytosis SLIGHT Platelet Evaluation DECREASED Laboratory test finding 03/08/2012 CPK (Creatine Kinase) 103 U/L 0-170 Erythrocyte Sed Rate 46 MM/HR High 0-40 Lipid Profile (Trig/Chol/HDL) 01/16/2012 Triglyceride 127 mg/dL 40-200 Cholesterol 205 mg/dL High Less Than 200 61 High Density Lipoprotein 69 mg/dL High 40-60 62 Cholesterol/HDL Ratio 2.97 AVERAGE 1-4.44 Low Density Lipoprotein 111 mg/dL High Less Than 100 63 Comp Metabolic Panel 01/16/2012 Sodium 138 mmol/L 135-145 Potassium 4.8 mmol/L 3.5-5.0 Chloride 109 mmol/L 101-111 Co2 (Carbon Dioxide) 23.0 mmol/L 22-32 Anion Gap 6.0 mmol/L 2-11 64 Glucose 100 mg/dL 70-100 BUN 32 mg/dL High 6-24 Creatinine 1.1 mg/dL 0.50-1.40 One Over Creatinine 0.90 BUN/Creatinine Ratio 29.1 High 8-20 Calcium 9.7 mg/dL 8.1-9.9 Total Protein 6.4 GM/DL 6.2-8.1 Albumin 4.2 GM/DL 3.2-5.2 Globulin 2.2 GM/DL 2-4 Albumin/Globulin Ratio 1.9 1-3 Bilirubin Total 1.0 mg/dL 0.4-1.5 65 Alkaline Phosphatase 65 U/L 30-110 Alt (SGPT) 22 U/L 14-54 Ast (Sgot) 27 U/L 12-42 eGFR Non- 48.2 > 60 eGFR 61.9 > 60 66 Lipid Panel - [facility] 01/16/2012 CPK (Creatine Kinase) 101 U/L 0-170 CBC With Manual Diff 06/05/2011 White Blood Count 5.2 CUMM 4.8-10.8 Red Cell Count 3.71 CUMM Low 4.2-5.4 Hemoglobin 11.9 g/dL Low 12.0-16.0 Hematocrit 35 % 35-47 Mean Corpuscular Volume 93 um3 79-97 Mean Corpuscular Hemoglob 32 pg High 27-31 Mean Corpuscular HGB Cone 35 g/dL 32-36 Redcell Distribution WDTH 13 % 10.5-15 Platelet Count 140 CUMM Low 150-450 Mean Platelet Volume 8.9 um3 7.4-10.4 Polysegmented Neutrophil 71 % 38-83 Lymphocyte 22 % Low 25-47 Monocyte 4 % 0-13 Eosinophil 2 % 0-6 Basophil 1 % 0-2 Absolute Neutrophil Count 3.6 RBC Morphology NORMAL Basic Metabolic Panel 06/05/2011 Sodium 140 mmol/L 135-145 Potassium 4.3 mmol/L 3.5-5.0 Chloride 106 mmol/L 101-111 Co2 (Carbon Dioxide) 29.0 mmol/L 22-32 Anion Gap 5.0 mmol/L 2-11 67 Glucose 122 mg/dL High 70-100 BUN 24 mg/dL 6-24 Creatinine 1.30 mg/dL 0.50-1.40 One Over Creatinine 0.70 BUN/Creatinine Ratio 18.5 8-20 Calcium 10.4 mg/dL High 8.1-9.9 eGFR Non- 39.8 > 60 eGFR 51.2 > 60 68 Laboratory test finding 06/05/2011 Calcium Ionized 5.24 mg/dL 4.65-5.28 Vitamin D, 25 Hydroxy 06/05/2011 25-Hydroxy Vitamin D2 <4.0 ng/mL () 25-Hydroxy Vitamin D3 47 ng/mL () 25-Hydroxy Vitamin D Total 47 ng/mL () 69 PTH Intact, Inc Total Calcium 06/05/2011 PTH Intact 4.9 PMOL/L 1.3-9.3 Calcium For Pthi 10.2 mg/dL High 8.1-9.9 70 Lipid Panel - [facility] 01/19/2011 CPK (Creatine Kinase) 78 U/L 0-170 Comp Metabolic Panel 01/19/2011 Sodium 137 mmol/L 135-145 Potassium 4.4 mmol/L 3.5-5.0 Chloride 104 mmol/L 101-111 Co2 (Carbon Dioxide) 29.0 mmol/L 22-32 Anion Gap 4.0 mmol/L 2-11 71 Glucose 95 mg/dL 70-100 BUN 21 mg/dL 6-24 Creatinine 1.20 mg/dL 0.50-1.40 One Over Creatinine 0.80 BUN/Creatinine Ratio 17.5 8-20 Calcium 10.2 mg/dL High 8.1-9.9 Total Protein 6.4 GM/DL 6.2-8.1 Albumin 4.1 GM/DL 3.2-5.2 Globulin 2.3 GM/DL 2-4 Albumin/Globulin Ratio 1.8 1-3 Bilirubin Total 0.7 mg/dL 0.4-1.5 72 Alkaline Phosphatase 60 U/L 30-110 Alt (SGPT) 22 U/L 14-54 Ast (Sgot) 28 U/L 12-42 eGFR Non- 43.7 > 60 eGFR 56.2 > 60 73 Lipid Profile (Trig/Chol/HDL) 01/19/2011 Triglyceride 86 mg/dL 40-200 Cholesterol 198 mg/dL Less Than 200 74 High Density Lipoprotein 86 mg/dL High 40-60 75 Cholesterol/HDL Ratio 2.30 AVERAGE 1-4.44 Low Density Lipoprotein 95 mg/dL Less Than 100 76 Laboratory test finding 01/19/2011 TSH 2.09 MIU/ML 0.34-5.60 CBC No Diff 01/19/2011 White Blood Count 4.3 CUMM Low 4.8-10.8 Red Cell Count 3.69 CUMM Low 4.2-5.4 Hemoglobin 11.8 g/dL Low 12.0-16.0 Hematocrit 34 % Low 35-47 Mean Corpuscular Volume 93 um3 79-97 Mean Corpuscular Hemoglob 32 pg High 27-31 Mean Corpuscular HGB Cone 34 g/dL 32-36 Redcell Distribution WDTH 13 % 10.5-15 Platelet Count 146 CUMM Low 150-450 Mean Platelet Volume 8.7 um3 7.4-10.4 CBC With Electronic Diff 10/27/2010 White Blood Count 5.4 CUMM 4.8-10.8 Red Cell Count 3.83 CUMM Low 4.2-5.4 Hemoglobin 12.4 g/dL 12.0-16.0 Hematocrit 35 % 35-47 Mean Corpuscular Volume 93 um3 79-97 Mean Corpuscular Hemoglob 32 pg High 27-31 Mean Corpuscular HGB Cone 35 g/dL 32-36 Redcell Distribution WDTH 12 % 10.5-15 Platelet Count 147 CUMM Low 150-450 Mean Platelet Volume 7.3 um3 Low 7.4-10.4 Gran % 60.4 % 38-83 Lymph % 30.3 % 25-47 Mononuclear % 6.8 % 1-9 Eosinophil % 1.9 % 0-6 Basophil % 0.6 % 0-2 Abs Lymphs 1.6 1.0-4.8 Abs Mononuclear 0.4 0-0.8 Absolute Neutrophil Count 3.3 1.5-7.7 Abs Eosinophils 0.1 0-0.6 Abs Basophils 0 0-0.2 Comp Metabolic Panel 10/27/2010 Sodium 136 mmol/L 135-145 Potassium 4.4 mmol/L 3.5-5.0 Chloride 102 mmol/L 101-111 Co2 (Carbon Dioxide) 28.0 mmol/L 22-32 Anion Gap 6.0 mmol/L 2-11 77 Glucose 87 mg/dL 70-100 BUN 25 mg/dL High 6-24 Creatinine 1.10 mg/dL 0.50-1.40 One Over Creatinine 0.90 BUN/Creatinine Ratio 22.7 High 8-20 Calcium 9.9 mg/dL 8.1-9.9 Total Protein 6.2 GM/DL 6.2-8.1 Albumin 4.2 GM/DL 3.2-5.2 Globulin 2.0 GM/DL 2-4 Albumin/Globulin Ratio 2.1 1-3 Bilirubin Total 0.6 mg/dL 0.4-1.5 78 Alkaline Phosphatase 68 U/L 30-110 Alt (SGPT) 30 U/L 14-54 Ast (Sgot) 36 U/L 12-42 eGFR Non- 51.3 > 60 eGFR 62.1 > 60 79 Laboratory test finding 10/27/2010 Erythrocyte Sed Rate 46 MM/HR High 0- 40 Lipid Profile (Trig/Chol/HDL) 08/02/2010 Triglyceride 101 mg/dL 40-200 Cholesterol 183 mg/dL Less Than 200 80 High Density Lipoprotein 74 mg/dL High 40-60 81 Cholesterol/HDL Ratio 2.47 AVERAGE 1-4.44 Low Density Lipoprotein 89 mg/dL Less Than 100 82 Comp Metabolic Panel 08/02/2010 Sodium 139 mmol/L 135-145 Potassium 4.6 mmol/L 3.5-5.0 Chloride 104 mmol/L 101-111 Co2 (Carbon Dioxide) 29.0 mmol/L 22-32 Anion Gap 6.0 mmol/L 2-11 83 Glucose 90 mg/dL 70-100 84 BUN 28 mg/dL High 6-24 Creatinine 1.30 mg/dL 0.50-1.40 One Over Creatinine 0.70 BUN/Creatinine Ratio 21.5 High 8-20 Calcium 10.0 mg/dL High 8.1-9.9 Total Protein 6.8 GM/DL 6.2-8.1 Albumin 4.2 GM/DL 3.2-5.2 Globulin 2.6 GM/DL 2-4 Albumin/Globulin Ratio 1.6 1-3 Bilirubin Total 0.7 mg/dL 0.4-1.5 85 Alkaline Phosphatase 61 U/L 30-110 Alt (SGPT) 26 U/L 14-54 Ast (Sgot) 28 U/L 12-42 eGFR Non- 42.3 > 60 eGFR 51.2 > 60 86 Lipid Panel - [facility] 08/02/2010 CPK (Creatine 125 U/L 0-170 Kinase) Laboratory test 08/02/2010 Lyme Disease Negative Negative 87 finding Serology Surgical Pathology 01/10/2010 Surgical Pathology 88 <SEE NOTE> Stool For Blood 07/02/2009 Misc Positive Reticolocyte Count 06/30/2009 Red Cell Count 3.67 CUMM Low 4.2-5.4 Hemoglobin 12.0 g/dL 12.0-16.0 Hematocrit 34 % Low 35-47 Reticulocyte Count 1.15 % 0.5-1.5 Corrected Retic 0.9 % 0.5-1.5 Retic Index 0.6 Mean Retic Volume 119.6 Immature Retic Fraction 0.37 RBC Retic Count 3.67 CUMM Low 4.6-6.2 Hematocrit For Retic Coun 34 % Low 35-47 Iron & Iron Binding Capacity 06/30/2009 Iron Total 97 g/dL 28-170 Unsaturated Iron Binding 329 g/dL Total Iron Binding Capacity 426 g/dL 250-450 % Iron Saturation 23 % 15-55 Protein Electrophoresis Serum 06/30/2009 Albumin 3.90 GM/DL 3.0-4.35 Alpha 1 0.22 GM/DL 0.09-0.33 Alpha 2 1.08 GM/DL 0.59-1.18 Beta 1.02 GM/DL 0.68-1.02 Gamma 0.78 GM/DL 0.76-1.60 Albumin % 55.7 % 46-63 Alpha 1 % 3.1 % 1.2-5.3 Alpha 2 % 15.4 % 9-17 Beta % 14.6 % 10-16 Gamma % 11.1 % Low 12-22 A/G Ratio 1.3 0.9-2 Total Protein 7.0 GM/DL 6.2-8.1 Spep Comments (SEE NOTE) 89 Laboratory test finding 06/30/2009 Erythropoietin 12 mIU/mL 4.0-21 90 Hemochromatosis Hereditary Dna 06/30/2009 Specimen Blood () Specimen Id [id number] () Order Date 01 Jul 2009 09:0 <SEE NOTE> () 91 Method . () 92 Hemochromatosis Gene Results [id number]: not dete <SEE NOTE> () 93 Hemochromatosis Gene Interpret . () 94 Reviewed By SEE BELOW () 95 Release Date 05 Jul 2009 10:5 <SEE NOTE> () 96 Laboratory test finding 06/30/2009 Haptoglobin 194 mg/dL 30-200 97 LDH 211 U/L High 95-185 Vitamin B12 And Folate Serum 06/17/2009 Vitamin B12 > 1500 pg/mL High 180-914 37 Folic Acid > 20.0 NG/ML High 2-16 37 Vitamin D 1,25 And 06/17/2009 Vitamin D, 1,25 43 pg/mL 18-78 37, 98 Vitamin D,2 Dihydroxy Vitamin D, 25 Hydroxy 06/17/2009 25-Hydroxy Vitamin D2 <4.0 ng/mL () 37 25-Hydroxy Vitamin D3 50 ng/mL () 37 25-Hydroxy Vitamin D Total 50 ng/mL () 37, 99 Lipid Profile (Trig/Chol/HDL) 06/17/2009 Triglyceride 87 mg/dL 40-200 37 Cholesterol 182 mg/dL Less Than 200 37, 100 High Density Lipoprotein 81 mg/dL High 40-60 37, 101 Cholesterol/HDL Ratio 2.25 AVERAGE 1-4.44 37 Low Density Lipoprotein 84 mg/dL Less Than 100 37, 102 Liver Function Panel 06/17/2009 Total Protein 6.7 GM/DL 6.2-8.1 37 Albumin 4.3 GM/DL 3.2-5.2 37 Globulin 2.4 GM/DL 2-4 37 Albumin/Globulin Ratio 1.8 1-3 37 Bilirubin Total 0.8 mg/dL 0.4-1.5 37, 103 Bilirubin Direct 0.1 mg/dL 0.1-0.5 37 Indirect Bilirubin 0.7 mg/dL 0.1-0.75 37 Alkaline Phosphatase 61 U/L 30-110 37 Alt (SGPT) 24 U/L 14-54 37 Ast (Sgot) 30 U/L 12-42 37 Laboratory test finding 06/17/2009 CPK (Creatine Kinase) 143 U/L 0-170 37 CBC With Electronic Diff 06/17/2009 White Blood Count 5.1 CUMM 4.8-10.8 37 Red Cell Count 3.66 CUMM Low 4.2-5.4 37 Hemoglobin 11.6 g/dL Low 12.0-16.0 37 Hematocrit 34 % Low 35-47 37 Mean Corpuscular Volume 93 um3 79-97 37 Mean Corpuscular Hemoglob 32 pg High 27-31 37 Mean Corpuscular HGB Cone 34 g/dL 32-36 37 Redcell Distribution WDTH 13 % 10.5-15 37 Platelet Count 126 CUMM Low 150-450 37 Mean Platelet Volume 8.7 um3 7.4-10.4 37 Gran % 60.9 % 38-83 37 Lymph % 28.7 % 25-47 37 Mononuclear % 7.0 % 1-9 37 Eosinophil % 2.9 % 0-6 37 Basophil % 0.5 % 0-2 37 Abs Lymphs 1.5 1.0-4.8 37 Abs Mononuclear 0.4 0-0.8 37 Absolute Neutrophil Count 3.1 1.5-7.7 37 Abs Eosinophils 0.1 0-0.6 37 Abs Basophils 0 0-0.2 37 Laboratory test finding 06/17/2009 Thyroxine Free 0.93 NG/ML 0.61-1.24 37, 104 TSH 2.29 MIU/ML 0.34-5.60 37 Basic Metabolic Panel 06/17/2009 Sodium 140 mmol/L 135-145 37 Potassium 4.2 mmol/L 3.5-5.0 37 Chloride 104 mmol/L 101-111 37 Co2 (Carbon Dioxide) 28.0 mmol/L 22-32 37 Anion Gap 8.0 mmol/L 2-11 37, 105 Glucose 94 mg/dL 70-100 37, 106 BUN 31 mg/dL High 6-24 37 Creatinine 1.40 mg/dL 0.50-1.40 37 One Over Creatinine 0.70 37 BUN/Creatinine Ratio 22.1 High 8-20 37 Calcium 10.1 mg/dL High 8.1-9.9 37, 107 eGFR Non- 39.1 > 60 37 eGFR 47.3 > 60 37, 108 Laboratory test 06/08/2009 Cytology <SEE 109 finding NOTE> Laboratory test 11/12/2008 Erythrocyte Sed 30 MM/HR 0-40 finding Rate CBC With 11/12/2008 White Blood Count 7.0 CUMM 4.8-10. Electronic Diff 8 Red Cell Count 3.66 CUMM Low 4.2-5.4 Hemoglobin 11.6 g/dL Low 12.0-16.0 Hematocrit 34 % Low 35-47 Mean Corpuscular Volume 92 um3 79-97 Mean Corpuscular Hemoglob 32 pg High 27-31 Mean Corpuscular HGB Cone 34 g/dL 32-36 Redcell Distribution WDTH 14 % 10.5-15 Platelet Count 193 CUMM 150-450 Mean Platelet Volume 8.6 um3 7.4-10.4 Gran % 69.8 % 38-83 Lymph % 23.5 % Low 25-47 Mononuclear % 3.5 % 1-9 Eosinophil % 2.7 % 0-6 Basophil % 0.5 % 0-2 Abs Lymphs 1.6 1.0-4.8 Abs Mononuclear 0.2 0-0.8 Absolute Neutrophil Count 4.9 1.5-7.7 Abs Eosinophils 0.2 0-0.6 Abs Basophils 0 0-0.2 Laboratory test finding 11/12/2008 TSH 1.85 MIU/ML 0.34-5.60 Liver Function Panel 11/12/2008 Total Protein 6.9 GM/DL 6.2-8.1 Albumin 4.3 GM/DL 3.2-5.2 Globulin 2.6 GM/DL 2-4 Albumin/Globulin Ratio 1.7 1-3 Bilirubin Total 0.6 mg/dL 0.4-1.5 Bilirubin Direct < 0.1 mg/dL Low 0.1-0.5 Indirect Bilirubin (SEE NOTE) mg/dL 0.1-0.75 110 Alkaline Phosphatase 71 U/L 30-110 Alt (SGPT) 29 U/L 14-54 Ast (Sgot) 32 U/L 12-42 Laboratory test 04/27/2008 Cytology <SEE 111 finding NOTE> Lipid Profile 04/20/2008 Triglyceride 88 mg/dL 40-200 37 (Trig/Chol/HDL) Cholesterol 178 mg/dL Less Than 200 37, 112 High Density Lipoprotein 73 mg/dL High 40-60 37, 113 Cholesterol/HDL Ratio 2.44 AVERAGE 1-4.44 37 Low Density Lipoprotein 87 mg/dL Less Than 100 37, 114 Comp Metabolic Panel 04/20/2008 Sodium 139 mmol/L 135-145 37 Potassium 4.4 mmol/L 3.5-5.0 37 Chloride 105 mmol/L 101-111 37 Co2 (Carbon Dioxide) 28.0 mmol/L 22-32 37 Anion Gap 6.0 mmol/L 2-11 37, 115 Glucose 98 mg/dL 70-105 37 BUN 28 mg/dL High 6-24 37 Creatinine 1.4 mg/dL 0.5-1.4 37 One Over Creatinine 0.71 37 BUN/Creatinine Ratio 20.0 8-20 37 Calcium 9.7 mg/dL 8.1-9.9 37, 116 Total Protein 6.5 GM/DL 6.2-8.1 37 Albumin 4.2 GM/DL 3.2-5.2 37 Globulin 2.3 GM/DL 2-4 37 Albumin/Globulin Ratio 1.8 1-3 37 Bilirubin Total 0.8 mg/dL 0.4-1.5 37 Alkaline Phosphatase 63 U/L 30-110 37 Alt (SGPT) 24 U/L 14-54 37 Ast (Sgot) 29 U/L 12-42 37 Lipid Panel - [facility] 04/20/2008 CPK (Creatine Kinase) 171 U/L High 0-170 37 Lipid Panel - [facility] 12/26/2007 CPK (Creatine Kinase) 113 U/L 0-170 37 Comp Metabolic Panel 12/26/2007 One Over Creatinine 0.71 37 Anion Gap 6.0 mmol/L 2-11 37, 117 Albumin/Globulin Ratio 1.7 1-3 37 Albumin 4.3 GM/DL 3.2-5.2 37 Alkaline Phosphatase 58 U/L 30-110 37 Alt (SGPT) 19 U/L 14-54 37 Ast (Sgot) 28 U/L 12-42 37 BUN 32 mg/dL High 6-24 37 Calcium 10.1 mg/dL 8.7-10.2 37 Chloride 103 mmol/L 101-111 37 Co2 (Carbon Dioxide) 30.0 mmol/L 22-32 37 Globulin 2.5 GM/DL 2-4 37 Glucose 98 mg/dL 70-105 37 Potassium 4.3 mmol/L 3.5-5.0 37 Sodium 139 mmol/L 135-145 37 Bilirubin Total 0.8 mg/dL 0.4-1.5 37 Total Protein 6.8 GM/DL 6.2-8.1 37 BUN/Creatinine Ratio 22.9 High 8-20 37 Creatinine 1.4 mg/dL 0.5-1.4 37 Lipid Profile 12/26/2007 Cholesterol/HDL Ratio 4.78 AVERAGE High 1-4.44 37 (Trig/Chol/HDL) Cholesterol 344 mg/dL High Less Than 200 37, 118 Triglyceride 156 mg/dL 40-200 37 High Density Lipoprotein 72 mg/dL High 40-60 37, 119 Low Density Lipoprotein 241 mg/dL High Less Than 100 37, 120 Liver Function Panel 10/18/2007 Albumin/Globulin Ratio 1.8 1-3 Albumin 4.3 GM/DL 3.2-5.2 Alkaline Phosphatase 60 U/L 30-110 Alt (SGPT) 24 U/L 14-54 Ast (Sgot) 28 U/L 12-42 Bilirubin Direct 0.1 mg/dL 0.1-0.5 Globulin 2.4 GM/DL 2-4 Indirect Bilirubin 0.5 mg/dL 0.1-0.75 Bilirubin Total 0.6 mg/dL 0.4-1.5 Total Protein 6.7 GM/DL 6.2-8.1 Lipid Profile 10/18/2007 Cholesterol/HDL Ratio 3.16 AVERAGE 1-4.44 (Trig/Chol/HDL) Cholesterol 215 mg/dL High Less Than 200 121 Triglyceride 150 mg/dL 40-200 High Density Lipoprotein 68 mg/dL High 40-60 122 Low Density Lipoprotein 117 mg/dL High Less Than 100 123 CBC With Electronic Diff 10/18/2007 White Blood Count 4.7 CUMM Low 4.8- 10.8 Abs Basophils 0 0-0.2 Abs Eosinophils 0.1 0-0.6 Absolute Neutrophil Count 3.0 1.5-7.7 Abs Lymphs 1.3 1.0-4.8 Abs Mononuclear 0.3 0-0.8 Basophil % 0.5 % 0-2 Hematocrit 36 % 35-47 Hemoglobin 12.4 g/dL 12.0-16.0 Eosinophil % 2.1 % 0-6 Gran % 64.6 % 38-83 Lymph % 26.9 % 20-45 Mean Corpuscular HGB Cone 34 g/dL 32-36 Mean Corpuscular Hemoglob 31 pg 27-31 Mean Corpuscular Volume 92 um3 79-97 Mean Platelet Volume 8.2 um3 7.4-10.4 Mononuclear % 5.9 % 1-9 Platelet Count 164 CUMM 150-450 Red Cell Count 3.95 CUMM Low 4.2-5.4 Redcell Distribution WDTH 13 % 10.5-15 1 Network Programmer: [id number] 2 SEE RESULT BELOW Name: JESSIE PANDA : [address]: Pb Dinero MD Acct: [id number] Unit: [id number] AGE: 82 Location: [facility] Re01/31/18 SEX: F Status: REG REF SPEC: [id number] LEATHA: 01/31/18-[address]: Samuel Dinero MD REQ: [id number] RECD: 01/31/18973 STATUS: COMP _ SOURCE: YAIMA SPDESC: ORDERED: Flu A B Request COMMENTS: [id number] Procedure Result Reported Site Rapid Influenza A B Request Final 01/31/18- 191 ML Specimen received for Influenza A/B Molecular testing * ML - Main Lab . END OF REPORT DEPARTMENT OF PATHOLOGY, [address] [place] [address] Smith Eckert M.D. Director [facility] # [id number] Network Programmer: [id number] 4 SEE RESULT BELOW Name: JESSIE PANDA : [address]: Pb Dinero MD Acct: [id number] Unit: [id number] AGE: 82 Location: [facility] Re10/23/17 SEX: F Status: REG REF SPEC: [id number] LEATHA: 10/23/[address] [facility] [address]: Samuel Dinero MD REQ: [id number] RECD: 10/23/17 STATUS: COMP _ SOURCE: YAIMA SPDESC: ORDERED: Flu A B Request COMMENTS: [id number] Procedure Result Reported Site Rapid Influenza A B Request Final 10/23/172040 ML Specimen received for Influenza A/B Molecular testing * ML - MAIN LAB ([facility]) . END OF REPORT * ML=Testing performed at Main Lab DEPARTMENT OF PATHOLOGY, [address] [place] [address] Smith Eckert M.D. Director [facility] # [id number] 5 Network Programmer: [id number] 6 SEE RESULT BELOW Name: FARZADJESSIE Kody : [address]: Pb Dinero MD Acct: [id number] Unit: [id number] AGE: 82 Location: [facility] Re10/23/17 SEX: F Status: REG REF SPEC: [id number] LEATHA: 10/23/[address] [facility] [address]: Samuel Dinero MD REQ: [id number] RECD: 10/23/17 STATUS: COMP _ SOURCE: THROAT SPDESC: ORDERED: Strep A Request COMMENTS: [id number] Procedure Result Reported Site Rapid Strep A Request Final 10/23/172042 ML Specimen received for Rapid Strep A Molecular testing * ML - MAIN LAB ([facility]) . END OF REPORT * ML=Testing performed at Main Lab DEPARTMENT OF PATHOLOGY, [address] [place] [address] Smith Eckert M.D. Director [facility] # [id number] 7 *Ascorbic acid is present which may interfere with detection of blood. 8 SEE RESULT BELOW Name: JESSIE PANDA : [address]: Darnell Juares MD Acct: [id number] Unit: [id number] AGE: 82 Location: LAB Re09/18/17 SEX: F Status: REG REF SPEC: [id number] LEATHA: 09/18/17-[address] [facility] [address]: Darnell Juares MD REQ: [id number] RECD: 09/18/17 STATUS: ARLYN GOODRICH DR: Samuel Dinero MD _ SOURCE: URINE SPDESC: ORDERED: Urine Culture Procedure Result Reported Site Urine Culture Final 09/19/17- 1333 ML No growth of clinically significant organisms * ML - MAIN LAB ([facility]) . END OF REPORT * ML=Testing performed at Main Lab DEPARTMENT OF PATHOLOGY, [address] [place] [address] Smith Eckert M.D. Director [facility] # [id number] 9 SEE RESULT BELOW Name: JESSIE PANDA : [address]: Pb Dinero MD Acct: [id number] Unit: [id number] AGE: 81 Location: [facility] Re07/19/17 SEX: F Status: REG REF SPEC: [id number] LEATHA: 07/19/17-[address]: Samuel Dinero MD REQ: [id number] RECD: 07/19/17 STATUS: COMP _ SOURCE: URINE SPDESC: ORDERED: Urine Culture COMMENTS: [id number] Procedure Result Reported Site Urine Culture Final 07/21/17- 1100 ML No growth of clinically significant organisms * ML - [facility] ([facility]) . END OF REPORT * ML=Testing performed at [facility] DEPARTMENT OF PATHOLOGY, [address] [place] [address] Smith Eckert M.D. Director [facility] # [id number] 10 Acute inflammation: >10.00 11 RESULT: Small abnormality in gamma fraction. Test Performed by: [address] [address] 12 Because ethnic data is not always readily available, this report includes an eGFR for both -Americans and non- Americans. The National Kidney Disease Education Program (NKDEP) does not endorse the use of the MDRD equation for patients that are not between the ages of 18 and 70, are , have extremes of body size, muscle mass, or nutritional status, or are non- or non-. According to the National Kidney Foundation, irrespective of diagnosis, the stage of the disease is based on the level of kidney function: Stage Description GFR(mL/min/1.73 m(2)) 1 Kidney damage with normal or decreased GFR 90 2 Kidney damage with mild decrease in GFR 60-89 3 Moderate decrease in GFR 30-59 4 Severe decrease in GFR 15-29 5 Kidney failure <15 (or dialysis) 13 A negative result does not exclude the diagnosis of autoimmune myasthenia gravis. 14 ADDITIONAL INFORMATION This test was developed and its performance characteristics determined by [facility] in a manner consistent with CLIA requirements. This test has not been cleared or approved by the U.S. Food and Drug Administration. 15 REFERENCE VALUE 0-20% (reported as _% loss of AChR) ADDITIONAL INFORMATION This test was developed and its performance characteristics determined by [facility] in a manner consistent with CLIA requirements. This test has not been cleared or approved by the U.S. Food and Drug Administration. 16 ADDITIONAL INFORMATION This test was developed and its performance characteristics determined by [facility] in a manner consistent with CLIA requirements. This test has not been cleared or approved by the U.S. Food and Drug Administration. Test Performed by: [address] [address] 17 Because ethnic data is not always readily available, this report includes an eGFR for both -Americans and non- Americans. The National Kidney Disease Education Program (NKDEP) does not endorse the use of the MDRD equation for patients that are not between the ages of 18 and 70, are , have extremes of body size, muscle mass, or nutritional status, or are non- or non-. According to the National Kidney Foundation, irrespective of diagnosis, the stage of the disease is based on the level of kidney function: Stage Description GFR(mL/min/1.73 m(2)) 1 Kidney damage with normal or decreased GFR 90 2 Kidney damage with mild decrease in GFR 60-89 3 Moderate decrease in GFR 30-59 4 Severe decrease in GFR 15-29 5 Kidney failure <15 (or dialysis) 18 Desirable <150 Borderline high 150-199 High 200-499 Very High >500 19 Desirable <200 Borderline high 200-239 High >239 20 Low <40 Desirable: 40-60 High: >60 21 Desirable: <100 mg/dL Near Optimal: 100-129 mg/dL Borderline High: 130-159 mg/dL High: 160-189 mg/dL Very High: >189 mg/dL 22 Desirable <150 Borderline high 150-199 High 200-499 Very High >500 23 Desirable <200 Borderline high 200-239 High >239 24 Low <40 Desirable: 40-60 High: >60 25 Desirable: <100 mg/dL Near Optimal: 100-129 mg/dL Borderline High: 130-159 mg/dL High: 160-189 mg/dL Very High: >189 mg/dL 26 Because ethnic data is not always readily available, this report includes an eGFR for both -Americans and non- Americans. The National Kidney Disease Education Program (NKDEP) does not endorse the use of the MDRD equation for patients that are not between the ages of 18 and 70, are , have extremes of body size, muscle mass, or nutritional status, or are non- or non-. According to the National Kidney Foundation, irrespective of diagnosis, the stage of the disease is based on the level of kidney function: Stage Description GFR(mL/min/1.73 m(2)) 1 Kidney damage with normal or decreased GFR 90 2 Kidney damage with mild decrease in GFR 60-89 3 Moderate decrease in GFR 30-59 4 Severe decrease in GFR 15-29 5 Kidney failure <15 (or dialysis) 27 FASTING 10 HOUR 28 Because ethnic data is not always readily available, this report includes an eGFR for both -Americans and non- Americans. The National Kidney Disease Education Program (NKDEP) does not endorse the use of the MDRD equation for patients that are not between the ages of 18 and 70, are , have extremes of body size, muscle mass, or nutritional status, or are non- or non-. According to the National Kidney Foundation, irrespective of diagnosis, the stage of the disease is based on the level of kidney function: Stage Description GFR(mL/min/1.73 m(2)) 1 Kidney damage with normal or decreased GFR 90 2 Kidney damage with mild decrease in GFR 60-89 3 Moderate decrease in GFR 30-59 4 Severe decrease in GFR 15-29 5 Kidney failure <15 (or dialysis) 29 PT IS FASTING 30 Desirable <150 Borderline high 150-199 High 200-499 Very High >500 31 Desirable <200 Borderline high 200-239 High >239 32 Low <40 Desirable: 40-60 High: >60 33 Desirable: <100 mg/dL Near Optimal: 100-129 mg/dL Borderline High: 130-159 mg/dL High: 160-189 mg/dL Very High: >189 mg/dL 34 PT IS FASTING 35 Small abnormality in gamma fraction. See Immunofixation. Test Performed by: [place] [address] Grinder Chipper: Jason Nguyen III, M.D. 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 Suggest repeat testing in 6-12 months if clinically indicated. Test Performed by: [place] [address] Grinder Chipper: Jason Nguyen III, M.D. 37 FASTING 38 Desirable <150 Borderline high 150-199 High 200-499 Very High >500 39 Desirable <200 Borderline high 200-239 High >239 40 Low <40 Desirable: 40-60 High: >60 41 Desirable <100 Near Optimal 100-129 Borderline high 130-159 High 160-189 Very High >189 42 RUN DATE: 11/06/13 [facility] LAB LIVE PAGE 1 RUN TIME: [address] [place] [address] Specimen Inquiry Name: JESSIE PANDA : [address]: Reymundo Reed MD Acct: [id number] Unit: [id number] AGE: 78 Location: THYROID Re11/06/13 SEX: F Status: REG REF SPEC: [id number] LEATHA: 11/06/13- SUBM DR: Shiv Rizzo MD REQ: [id number] RECD: 11/06/1325 STATUS: FUNMILAYO GOODRICH DR: Reymundo Dinero MD _ ORDERED: FN ASP DEEP/2, FNA IMMEDIATE S/2 FINAL DIAGNOSIS #1) RIGHT MID THYROID NODULE, Ultrasound guided, fine needle aspiration: Benign thyroid nodule - colloid/hyperplastic type. #2) RIGHT INFERIOR THYROID NODULE, Ultrasound guided, fine needle aspiration: Benign thyroid nodule - colloid/hyperplastic type. COMMENTS: #1) The specimen demonstrates abundant watery colloid, an abundant amount of benign appearing follicular epithelium arranged in uniform sheets, medium sized follicles and only occasional small groups. No features of papillary carcinoma are seen. In this clinical setting the risk of malignancy is less than 3%. Clinical management of this thyroid nodule should be based on clinical and radiographic features as well as the above. #2) The specimen demonstrates modest watery colloid, a modest amount of benign appearing follicular epithelium arranged in uniform sheets, medium sized follicles and only CONTINUED ON NEXT PAGE * ML=Testing performed at Main Lab DEPARTMENT OF PATHOLOGY, [address] [place], [place] [address] Smith Eckert M.D. Director [facility] Permit #[id number] RUN DATE: 11/06/13 [facility] LAB LIVE PAGE 2 RUN TIME: [address] [place], [place] [address] Specimen Inquiry Patient: JESSIE PANDA [id number] (Continued) SPECIMEN COMMENTS (Continued) occasional small groups. No features of papillary carcinoma are seen. In this clinical setting the risk of malignancy is less than 3%. Clinical management of this thyroid nodule should be based on clinical and radiographic features as well as the above. 1. THYROID RIGHT - US GUIDED FINE NEEDLE ASPIRATION RIGHT MID, 2. THYROID RIGHT - US GUIDED FINE NEEDLE ASPIRATION RIGHT INFERIOR CLINICAL HISTORY #1) Right mid thyroid nodule 1.3 x 1.0 x 1.1 #2) Right inferior thyroid nodule 1.7 x 1.4 x 1.5 IMMEDIATE INTERPRETATION #1) Pass 1- Adequate #2) Pass 1,2, +3- Adequate GROSS DESCRIPTION #1) Ultrasound guided, fine needle aspiration Passes-1 Slides-2 Needle rinse in CytoLyt solution for thin layer non-bodybuilder test. #2) Ultrasound guided, fine needle aspiration Passes-3 Slides-8 Needle rinse in CytoLyt solution for thin layer non-bodybuilder test. CONTINUED ON NEXT PAGE * ML=Testing performed at Main Lab DEPARTMENT OF PATHOLOGY, [facility] [place], [place] [address] Smith Eckert M.D. Director [facility] Permit #[id number] RUN DATE: 11/06/13 [facility] LAB LIVE PAGE 3 RUN TIME: [address] [place], [place] [address] Specimen Inquiry Patient: JESSIE PANDA [id number] (Continued) GROSS DESCRIPTION (Continued) Signed (signature on file) Vanna Werner MD 1336 END OF REPORT * ML=Testing performed at Main Lab DEPARTMENT OF PATHOLOGY, [address] [place] [address] Smith Eckert M.D. Director [facility] Permit #[id number] 43 Because ethnic data is not always readily available, this report includes an eGFR for both -Americans and non- Americans. The National Kidney Disease Education Program (NKDEP) does not endorse the use of the MDRD equation for patients that are not between the ages of 18 and 70, are , have extremes of body size, muscle mass, or nutritional status, or are non- or non-. According to the National Kidney Foundation, irrespective of diagnosis, the stage of the disease is based on the level of kidney function: Stage Description GFR(mL/min/1.73 m(2)) 1 Kidney damage with normal or decreased GFR 90 2 Kidney damage with mild decrease in GFR 60-89 3 Moderate decrease in GFR 30-59 4 Severe decrease in GFR 15-29 5 Kidney failure <15 (or dialysis) 44 Reference Range and Interpretation: TnI (ng/mL) Interpretation Less Than 0.06 ng/mL Not supportive of diagnosis of [place] 0.06 - 0.50 ng/mL Indeterminate: suggest serial studies if clinically indicated. Greater than 0.5 ng/mL Consistent with diagnosis of [place] 45 Because ethnic data is not always readily available, this report includes an eGFR for both -Americans and non- Americans. The National Kidney Disease Education Program (NKDEP) does not endorse the use of the MDRD equation for patients that are not between the ages of 18 and 70, are , have extremes of body size, muscle mass, or nutritional status, or are non- or non-. According to the National Kidney Foundation, irrespective of diagnosis, the stage of the disease is based on the level of kidney function: Stage Description GFR(mL/min/1.73 m(2)) 1 Kidney damage with normal or decreased GFR 90 2 Kidney damage with mild decrease in GFR 60-89 3 Moderate decrease in GFR 30-59 4 Severe decrease in GFR 15-29 5 Kidney failure <15 (or dialysis) 46 URINE BELOW DETECTABLE LIMITS 47 URINE PROTEIN BELOW DETECTABLE LIMITS 48 Possible M spike present. Rule out dysproteinemia. Suggest serum and urine immunoelectrophorsis. 49 IGG KAPPA MONOCLONAL PROTEIN IDENTIFIED 50 Possible M spike present. Rule out dysproteinemia. Suggest serum and urine immunoelectrophorsis. 51 HDL Interpretation: Undesirable: High Risk: Less than 40 MG/DL Desirable: Low Risk: Greater than 60 MG/DL 52 LDL Interpretation: Low Risk Optimal Level: LDL Less than 100 MG/DL Near or Above Optimal: LDL 100-129 MG/DL Borderline High Risk: LDL 130-159 MG/DL High Risk: LDL 160-189 MG/DL Very High Risk: LDL Greater than 189 MG/DL 53 Because ethnic data is not always readily available, this report includes an eGFR for both -Americans and non- Americans. The National Kidney Disease Education Program (NKDEP) does not endorse the use of the MDRD equation for patients that are not between the ages of 18 and 70, are , have extremes of body size, muscle mass, or nutritional status, or are non- or non-. According to the National Kidney Foundation, irrespective of diagnosis, the stage of the disease is based on the level of kidney function: Stage Description GFR(mL/min/1.73 m(2)) 1 Kidney damage with normal or decreased GFR 90 2 Kidney damage with mild decrease in GFR 60-89 3 Moderate decrease in GFR 30-59 4 Severe decrease in GFR 15-29 5 Kidney failure <15 (or dialysis) 54 Because ethnic data is not always readily available, this report includes an eGFR for both -Americans and non- Americans. The National Kidney Disease Education Program (NKDEP) does not endorse the use of the MDRD equation for patients that are not between the ages of 18 and 70, are , have extremes of body size, muscle mass, or nutritional status, or are non- or non-. According to the National Kidney Foundation, irrespective of diagnosis, the stage of the disease is based on the level of kidney function: Stage Description GFR(mL/min/1.73 m(2)) 1 Kidney damage with normal or decreased GFR 90 2 Kidney damage with mild decrease in GFR 60-89 3 Moderate decrease in GFR 30-59 4 Severe decrease in GFR 15-29 5 Kidney failure <15 (or dialysis) 55 Test Performed by: [place] [address] Grinder Chipper: Jason Nguyen III, M.D. 56 -- REFERENCE VALUE -- <20.0 (Negative) Test Performed by: [place] [address] Grinder Chipper: Jason Nguyen III, M.D. 57 Test Performed by: [place] [address] Grinder Chipper: Jason Nguyen III, M.D. 58 Anion gap measurement may be of limited value in the presence of any alkalosis, especially in a combined acid base disorder. . 59 Because ethnic data is not always readily available, this report includes an eGFR for both -Americans and non- Americans. The National Kidney Disease Education Program (NKDEP) does not endorse the use of the MDRD equation for patients that are not between the ages of 18 and 70, are , have extremes of body size, muscle mass, or nutritional status, or are non- or non-. According to the National Kidney Foundation, irrespective of diagnosis, the stage of the disease is based on the level of kidney function: Stage Description GFR(mL/min/1.73 m(2)) 1 Kidney damage with normal or decreased GFR 90 2 Kidney damage with mild decrease in GFR 60-89 3 Moderate decrease in GFR 30-59 4 Severe decrease in GFR 15-29 5 Kidney failure <15 (or dialysis) 60 Neutrophilia % Lymphopenia % Anemia 61 CHOLESTEROL INTERPRETATION: Desirable: Less than 200 MG/DL Borderline-High Risk: 200-239 MG/DL High-Risk: 240 MG/DL and over 62 HDL INTERPRETATION: Undesirable: High Risk: Less than 40 MG/DL Desirable: Low Risk: Greater than 60 MG/DL 63 LDL INTERPRETATION: Low Risk Optimal Level: LDL Less than 100 MG/DL Near or Above Optimal: LDL 100-129 MG/DL Borderline High Risk: LDL 130-159 MG/DL High Risk: LDL 160-189 MG/DL Very High Risk: LDL Greater than 189 MG/DL 64 Anion gap measurement may be of limited value in the presence of any alkalosis, especially in a combined acid base disorder. . 65 A metabolite of Naproxen, O-desmethylnaproxen, has been shown to interfere with the Jendrassik-Rosemarie method for measuring total bilirubin. Samples from patients who have taken Naproxen have shown spurious elevation in total bilirubin levels. 66 Because ethnic data is not always readily available, this report includes an eGFR for both -Americans and non- Americans. The National Kidney Disease Education Program (NKDEP) does not endorse the use of the MDRD equation for patients that are not between the ages of 18 and 70, are , have extremes of body size, muscle mass, or nutritional status, or are non- or non-. According to the National Kidney Foundation, irrespective of diagnosis, the stage of the disease is based on the level of kidney function: Stage Description GFR(mL/min/1.73 m(2)) 1 Kidney damage with normal or decreased GFR 90 2 Kidney damage with mild decrease in GFR 60-89 3 Moderate decrease in GFR 30-59 4 Severe decrease in GFR 15-29 5 Kidney failure <15 (or dialysis) 67 Anion gap measurement may be of limited value in the presence of any alkalosis, especially in a combined acid base disorder. . 68 Because ethnic data is not always readily available, this report includes an eGFR for both -Americans and non- Americans. The National Kidney Disease Education Program (NKDEP) does not endorse the use of the MDRD equation for patients that are not between the ages of 18 and 70, are , have extremes of body size, muscle mass, or nutritional status, or are non- or non-. According to the National Kidney Foundation, irrespective of diagnosis, the stage of the disease is based on the level of kidney function: Stage Description GFR(mL/min/1.73 m(2)) 1 Kidney damage with normal or decreased GFR 90 2 Kidney damage with mild decrease in GFR 60-89 3 Moderate decrease in GFR 30-59 4 Severe decrease in GFR 15-29 5 Kidney failure <15 (or dialysis) 69 -- REFERENCE VALUE -- 25-HYDROXY D TOTAL (D2+D3) Optimum levels in the normal population are 25-80 Test Performed by: [facility] Dpt of Lab Med and Pathology [address] [place] [address] Grinder Chipper: Jason Nguyen III, M.D. 70 Please note change in reference range effective 08 . 71 Anion gap measurement may be of limited value in the presence of any alkalosis, especially in a combined acid base disorder. . 72 A metabolite of Naproxen, O-desmethylnaproxen, has been shown to interfere with the [place] method for measuring total bilirubin. Samples from patients who have taken Naproxen have shown spurious elevation in total bilirubin levels. 73 Because ethnic data is not always readily available, this report includes an eGFR for both -Americans and non- Americans. The National Kidney Disease Education Program (NKDEP) does not endorse the use of the MDRD equation for patients that are not between the ages of 18 and 70, are , have extremes of body size, muscle mass, or nutritional status, or are non- or non-. According to the National Kidney Foundation, irrespective of diagnosis, the stage of the disease is based on the level of kidney function: Stage Description GFR(mL/min/1.73 m(2)) 1 Kidney damage with normal or decreased GFR 90 2 Kidney damage with mild decrease in GFR 60-89 3 Moderate decrease in GFR 30-59 4 Severe decrease in GFR 15-29 5 Kidney failure <15 (or dialysis) 74 CHOLESTEROL INTERPRETATION: Desirable: Less than 200 MG/DL Borderline-High Risk: 200-239 MG/DL High-Risk: 240 MG/DL and over 75 HDL INTERPRETATION: Undesirable: High Risk: Less than 40 MG/DL Desirable: Low Risk: Greater than 60 MG/DL 76 LDL INTERPRETATION: Low Risk Optimal Level: LDL Less than 100 MG/DL Near or Above Optimal: LDL 100-129 MG/DL Borderline High Risk: LDL 130-159 MG/DL High Risk: LDL 160-189 MG/DL Very High Risk: LDL Greater than 189 MG/DL 77 Anion gap measurement may be of limited value in the presence of any alkalosis, especially in a combined acid base disorder. . 78 A metabolite of Naproxen, O-desmethylnaproxen, has been shown to interfere with the J[place]rass[place] method for measuring total bilirubin. Samples from patients who have taken Naproxen have shown spurious elevation in total bilirubin levels. 79 Because ethnic data is not always readily available, this report includes an eGFR for both -Americans and non- Americans. The National Kidney Disease Education Program (NKDEP) does not endorse the use of the MDRD equation for patients that are not between the ages of 18 and 70, are , have extremes of body size, muscle mass, or nutritional status, or are non- or non-. According to the National Kidney Foundation, irrespective of diagnosis, the stage of the disease is based on the level of kidney function: Stage Description GFR(mL/min/1.73 m(2)) 1 Kidney damage with normal or decreased GFR 90 2 Kidney damage with mild decrease in GFR 60-89 3 Moderate decrease in GFR 30-59 4 Severe decrease in GFR 15-29 5 Kidney failure <15 (or dialysis) 80 CHOLESTEROL INTERPRETATION: Desirable: Less than 200 MG/DL Borderline-High Risk: 200-239 MG/DL High-Risk: 240 MG/DL and over 81 HDL INTERPRETATION: Undesirable: High Risk: Less than 40 MG/DL Desirable: Low Risk: Greater than 60 MG/DL 82 LDL INTERPRETATION: Low Risk Optimal Level: LDL Less than 100 MG/DL Near or Above Optimal: LDL 100-129 MG/DL Borderline High Risk: LDL 130-159 MG/DL High Risk: LDL 160-189 MG/DL Very High Risk: LDL Greater than 189 MG/DL 83 Anion gap measurement may be of limited value in the presence of any alkalosis, especially in a combined acid base disorder. . 84 Note change in reference range as of 06/11/08. The change was based on recommendations from the [place] [employer]. 85 A metabolite of Naproxen, O-desmethylnaproxen, has been shown to interfere with the [place] method for measuring total bilirubin. Samples from patients who have taken Naproxen have shown spurious elevation in total bilirubin levels. 86 Because ethnic data is not always readily available, this report includes an eGFR for both -Americans and non- Americans. The National Kidney Disease Education Program (NKDEP) does not endorse the use of the MDRD equation for patients that are not between the ages of 18 and 70, are , have extremes of body size, muscle mass, or nutritional status, or are non- or non-. According to the National Kidney Foundation, irrespective of diagnosis, the stage of the disease is based on the level of kidney function: Stage Description GFR(mL/min/1.73 m(2)) 1 Kidney damage with normal or decreased GFR 90 2 Kidney damage with mild decrease in GFR 60-89 3 Moderate decrease in GFR 30-59 4 Severe decrease in GFR 15-29 5 Kidney failure <15 (or dialysis) 87 Serologic response to B. burgdorferi infection is not detected, but cannot rule out early infection during which low or undetectable antibody levels to B. burgdorferi may be present. If clinically indicated, a new serum specimen should be submitted in 7-14 days. Test Performed by: [facility] Dpt of Lab Med and Pathology [address] [place] [address] Grinder Chipper: Jason Nguyen III, M.D. 88 ---- RUN DATE: 01/12/10 [facility] NMI LIVE PAGE 1 RUN TIME: 1331 Specimen Inquiry RUN USER: INTERFACE -- Name: JESSIE PANDA Status: REG REF Re01/10/10 Age/Sex: 74/F Unit#: [id number] Location: [facility] : 34 -- Specimen: [id number] SOUT Spec Date: 01/10/[address]: Luis M rodriges MD Spec Type: SURGICAL P Received: 01/11/10 Copies to: Samuel palma MD SPECIMEN BIOPSY COLON POLYP AT 25 CM HISTORY POST-OP DIAGNOSIS: To cecum, polyp, internal hemorrhoids CLINICAL INFORMATION: Hematochezia, follow up screening GROSS DESCRIPTION Specimen received in formalin labelled Jessie Panda, Colon Polyp at 25 cm. and consists of a mckenzie, soft tissue fragment measuring 0.4 x 0.2 x 0.1 cm. Submitted entirely, one cassette. DIAGNOSIS Colon, 25 cm., biopsy: Hyperplastic polyp. Signed Electronically by: SMITH ECKERT MD 01/12/10 1330 -- -- DEPARTMENT OF PATHOLOGY, [address] [place] [address] [facility] Permit #[id number] Smith Eckert M.D. Director Hattie Atkinson M.D. Survey Technologist Dir cabrera -- 89 NORMAL ELECTROPHORETIC PATTERN. 90 Test Performed by: [facility] Dpt of Lab Med and Pathology [address] [place] [address] Grinder Chipper: Jason Nguyen III, M.D. 91 01 Jul 2009 09:01 92 A PCR-based assay was utilized to test for the following three mutations in the HFE gene: C282Y, H63D, and S65C. Because of the minimal effect on iron metabolism associated with the S65C mutation, it is only reported when it is found with the C282Y mutation (i.e. if the patient has the C282Y/S65C genotype). 93 C282Y: not detected H63D: Heterozygous. One copy of the H63D mutation identified. 94 These results suggest a low risk for either a diagnosis of Hereditary Hemochromatosis (HH) or a predisposition for HH. The diagnosis of HH cannot be excluded since approximately 2 to 4% of patients with Hereditary Hemochromatosis (HH) in a [place] population have this genotype. However, this genotype is also found in approximately 20 to 30% of clinically normal individuals. For other ethnic or racial groups, the percentage of HH patients with this genotype may differ. Additionally, these results do not rule out the possibility of disease causing mutations in other regions of the HFE gene or in other as yet undefined genes. These results, therefore, need to be interpreted in the context of the clinical presentation and the results of other laboratory tests. The above interpretations assume that testing is being performed for a possible diagnosis of HH. For carrier testing, the interpretation of results depends on the family history of HH and the genotype of affected individuals. CAUTIONS: Test results should be interpreted in context of clinical findings, family history, and other laboratory data. Misinterpretation of results may occur if the information provided is inaccurate or incomplete. Rare polymorphisms exist that could lead to false negative or positive results. If results obtained do not match the clinical findings, additional testing should be considered. Bone marrow transplants from allogenic donors will interfere with testing. Call [facility] for instructions for testing patients who have received a bone marrow transplant. 95 RESULT: Tino Mercado Jr., PhD 96 05 Jul 2009 10:54 Test Performed by: [facility] Mynort of Lab Med and Pathology [address] [place] [address] Grinder Chipper: Jason Nguyen III, M.D. 97 Test Performed by: [facility] Robert of Lab Med and Pathology [address] [place] [address] Grinder Chipper: Jason Nguyen III, M.D. 98 Test Performed by: [facility] [address] [place] [address] Grinder Chipper: Jason Nguyen III, M.D. 99 -- REFERENCE VALUE -- 25-HYDROXY D TOTAL (D2+D3) Optimum levels in the normal population are 25-80 Test Performed by: [facility] Dpt of Lab Med and Pathology [address] [place] [address] Grinder Chipper: Jason Nguyen III, M.D. 100 CHOLESTEROL INTERPRETATION: Desirable: Less than 200 MG/DL Borderline-High Risk: 200-239 MG/DL High-Risk: 240 MG/DL and over 101 HDL INTERPRETATION: Undesirable: High Risk: Less than 40 MG/DL Desirable: Low Risk: Greater than 60 MG/DL 102 LDL INTERPRETATION: Low Risk Optimal Level: LDL Less than 100 MG/DL Near or Above Optimal: LDL 100-129 MG/DL Borderline High Risk: LDL 130-159 MG/DL High Risk: LDL 160-189 MG/DL Very High Risk: LDL Greater than 189 MG/DL 103 A metabolite of Naproxen, O-desmethylnaproxen, has been shown to interfere with the Jendrassik-Rosemar[place] method for measuring total bilirubin. Samples from patients who have taken Naproxen have shown spurious elevation in total bilirubin levels. 104 PLEASE NOTE NEW REFERENCE RANGES. 105 Anion gap measurement may be of limited value in the presence of any alkalosis, especially in a combined acid base disorder. . 106 Note change in reference range as of 06/11/08. The change was based on recommendations from the [place] [employer]. 107 Please note change in reference range effective 08 . 108 Because ethnic data is not always readily available, this report includes an eGFR for both -Americans and non- Americans. The National Kidney Disease Education Program (NKDEP) does not endorse the use of the MDRD equation for patients that are not between the ages of 18 and 70, are , have extremes of body size, muscle mass, or nutritional status, or are non- or non-. According to the National Kidney Foundation, irrespective of diagnosis, the stage of the disease is based on the level of kidney function: Stage Description GFR(mL/min/1.73 m(2)) 1 Kidney damage with normal or decreased GFR 90 2 Kidney damage with mild decrease in GFR 60-89 3 Moderate decrease in GFR 30-59 4 Severe decrease in GFR 15-29 5 Kidney failure <15 (or dialysis) 109 ----- RUN DATE: 06/09/09 [facility] NMI LIVE PAGE 1 RUN TIME: 1221 Specimen Inquiry RUN USER: INTERFACE -- Name: JESSIE PANDA Status: REG REF Re06/08/09 Age/Sex: 73/F Unit#: [id number] Location: [facility] : 34 -- Specimen: [id number] SOUT Spec Date: 06/08/[address]: Ca HUFFMAN Spec Type: CYTOLOGY Received: 06/09/09 Copies to: SOURCE ECTOCERVICAL/ENDOCERVICAL Thin Prep with Reflex HPV Test PATIENT INFORMATION ACTUAL COLLECTION DATE: 06/08/09 ? No POST MENOPAUSAL? Yes HYSTERECTOMY? No PREVIOUS ABNORMAL PAP SMEARS No PATIENT HISTORY: Prior 04/28 ADEQUACY OF SPECIMEN Satisfactory for evaluation * Transformation zone component cannot be definitely identified due to prese nce * of atrophy or other hormonal changes. * DIAGNOSIS NEGATIVE FOR INTRAEPITHELIAL LESION OR MALIGNANCY * This Pap test was evaluated with the assistance of the [employer] Pap Test Imaging System. The Pap Smear is a screening test designed to aid in the detection of premalign ant and malignant conditions of the uterine cervix. It is not a diagnostic procedure a nd should not be used as the sole means of detecting cervical cancer. Both false- positiv e and false-negative reports do occur. Depending on your risk status, a Pap smear edwar uld be obtained and evaluated every one to three years. Final Interpretation electronically signed by: Alvarado CARDENAS([facility]) 06/09/09 122 0 -- -- DEPARTMENT OF PATHOLOGY, [address] [place] [address] [facility] Permit #[id number] Smith Eckert M.D. Director Hattie Atkinson M.D. Survey Technologist Dir cabrera -- 110 UNABLE TO CALCULATE IND.BILI D.BILI IS <0.1 111 ----- RUN DATE: 04/28/08 [facility] NMI LIVE PAGE 1 RUN TIME: 1217 Specimen Inquiry RUN USER: INTERFACE -- Name: JESSIE PANDA Status: REG REF Re04/27/08 Age/Sex: 72/F Unit#: [id number] Location: [facility] : 34 -- Specimen: [id number] SOUT Spec Date: 04/27/[address]: Ca HUFFMAN Spec Type: CYTOLOGY Received: 04/28/08 Copies to: SOURCE ECTOCERVICAL/ENDOCERVICAL Thin Prep with Reflex HPV Test PATIENT INFORMATION ACTUAL COLLECTION DATE: 04/27/08 POST MENOPAUSAL? Yes ADEQUACY OF SPECIMEN Satisfactory for evaluation * Transformation zone component cannot be definitely identified due to prese nce * of atrophy or other hormonal changes. * DIAGNOSIS NEGATIVE FOR INTRAEPITHELIAL LESION OR MALIGNANCY * This Pap test was evaluated with the assistance of the [employer] Pap Test Imaging System. The Pap Smear is a screening test designed to aid in the detection of premalign ant and malignant conditions of the uterine cervix. It is not a diagnostic procedure a nd should not be used as the sole means of detecting cervical cancer. Both false- positive and false-negative reports do occur. Depending on your risk status, a Pap smear edwar uld be obtained and evaluated every one to three years. Final Interpretation electronically signed by: Kenny JOE(AS[facility]) 04/28/08 1217 -- -- DEPARTMENT OF PATHOLOGY, [address] [place] [address] [facility] Permit #[id number] Smith Eckert M.D. Director of Laboratories -- 112 CHOLESTEROL INTERPRETATION: Desirable: Less than 200 MG/DL Borderline-High Risk: 200-239 MG/DL High-Risk: 240 MG/DL and over 113 HDL INTERPRETATION: Undesirable: High Risk: Less than 40 MG/DL Desirable: Low Risk: Greater than 60 MG/DL 114 LDL INTERPRETATION: Low Risk Optimal Level: LDL Less than 100 MG/DL Near or Above Optimal: LDL 100-129 MG/DL Borderline High Risk: LDL 130-159 MG/DL High Risk: LDL 160-189 MG/DL Very High Risk: LDL Greater than 189 MG/DL 115 Anion gap measurement may be of limited value in the presence of any alkalosis, especially in a combined acid base disorder. . 116 Please note change in reference range effective 08 . 117 Anion gap measurement may be of limited value in the presence of any alkalosis, especially in a combined acid base disorder. . 118 Classification: High . 119 Classification: High . 120 CALCULATED LDL APPROXIMATES THE VALUE OF A DIRECT LDL MEASUREMENT. Classification: Very High . 121 Classification: Borderline High . 122 Classification: High . 123 CALCULATED LDL APPROXIMATES THE VALUE OF A DIRECT LDL MEASUREMENT. Classification: Near or above optimal . Procedures Date CPT Code Description Status Comment 03/02/2017 Mammogram Completed 08/17/2016 Diabetic Retinal Eye Exam Completed Document: 08/17/16 - Consult Ophthalmology - [place] 02/12/2014 Bone Mineral Density Test Completed 08/17/2010 78920 Admin Of Inj Completed 07/25/2010 Bone Mineral Density Test Completed 01/10/2010 Colonoscopy Completed 06/17/2009 Mammogram Completed 05/22/2008 Mammogram Completed 04/27/2008 40888 EKG Tracing & Completed Interpretation 04/27/2008 30930 EKG Tracing & Completed Interpretation 12/02/2001 Colonoscopy Completed Encounters Type Date Location Provider CPT E/M Dx Office Visit 10/23/2017 [facility] Internal Medicine Samuel Dinero, 03425 J11.89 2:30p - Alex Doyle,FACP J02.9 Office Visit 09/27/2017 8:00a [facility] Internal Darnell Juares M.D. 16158 M54.5 Medicine - [address] Office Visit 09/18/2017 10:40a [facility] Internal Darnell Juares M.D. 10709 M54.5 Medicine - [address] R09.1 Office Visit 08/24/2017 1:40p [facility] Internal Samuel Dinero, 28318 R13.10 Medicine - [address] Vivek,FACP R10.814 R05 I10 Z23 Office Visit 07/19/2017 2:40p [facility] Internal Medicine Samuel Dinero, 59256 M35.3 - [address] MMarisol,FACP R30.0 R13.10 D47.2 R10.814 Office Visit 03/07/2017 3:40p [facility] Internal Medicine - Royce Jim, [place] [address] Office Visit 12/19/2016 11:00a [facility] Internal Medicine - Royce Jim, [place] [address] J11.1 Office Visit 11/28/2016 10:40a [facility] Internal Medicine Ryley Jim, [place] [address] I10 Office Visit 08/25/2016 11:40a [facility] Internal Medicine Royce Jim, [place] 89322 N39.0 - [address] Office Visit 08/09/2016 10:10a [facility] Internal Medicine Samuel Dinero, 80236 A09 - [address] Vivek,FACP M62.838 Z23 Office Visit 06/05/2016 10:30a [facility] Internal Medicine Samuel Dinero, 82614 L30.9 - [place] [place] Doyle,FACP J02.9 Office Visit 02/21/2016 10:30a [facility] Internal Medicine Kika Anderson, 99542 M54.5 - Alex Doyle Office Visit 12/20/2015 2:40p [facility] Internal Medicine Royce Jim, [place] [address]77 J01.90 - [address] Office Visit 10/01/2015 8:30a [facility] Internal Medicine Royce Jim, [place] [address]50 S63.612A - [address] Office Visit 08/30/2015 10:30a [facility] Internal Medicine Samuel Dinero, 77867 G47.62 - [address] Vivek,FACP I10 Z66 M20.41 Office Visit 03/22/2015 11:30a [facility] Internal Medicine - Royce Jim, DRIER FEEDER [address] 786.07 477.9 709.9 Office Visit 08/10/2014 10:00a [facility] Internal Medicine - Jae Linda, DRIER FEED[place] [address] 724.2 [place] v04.81 729.5 V06.1 Office Visit 07/16/2014 11:30a [facility] Internal Medicine - Jae Linda, DRIER FEEDER 44330 724.2 [place] Office Visit 01/28/2014 9:30a [facility] Internal Medicine - Samuel Dinero, 98518 V70.0 Alex Doyle,FACP 585.2 790.21 401.1 733.00 784.0 Office Visit 12/10/2013 11:40a [facility] Internal Medicine Steve Raymundo, 12268 719.47 - Alex Doyle Office Visit 09/12/2013 9:40a [facility] Internal Medicine Samuel Dinero, 22281 789.01 - Alex Doyle,FACP 241.9 995.89 Office Visit 09/01/2013 4:20p [facility] Internal Medicine Samuel Dinero, 87994 789.01 - Alex Doyle,FACP 786.50 Office Visit 07/16/2013 9:30a [facility] Internal Medicine Samuel Dinero, 45085 789.01 - Alex Doyle,FACP v04.81 Office Visit 07/10/2013 10:50a [facility] Internal Medicine Samuel Dinero, 78032 789.01 - Alex Doyle,FACP Office Visit 03/25/2013 10:10a [facility] Internal Medicine Samuel Dinero, 80901 273.1 - Alex Doyle,FACP Office Visit 01/27/2013 10:30a [facility] Internal Medicine Samuel Dinero, 78478 V70.0 - Alex Doyle,FACP 401.1 585.2 790.21 275.42 284.19 Office Visit 11/08/2012 9:40a [facility] Internal Medicine Samuel Dinero, 92040 274.9 - Alex Doyle,FACP 715.16 401.1 Office Visit 10/03/2012 1:00p [facility] Internal Medicine Ilda Acuna, N.P. 93102 719.44 - [place] Office Visit 03/27/2012 11:30a [facility] Internal Medicine SamuelChidi Dinero, 20164 724.3 - Alex Doyle,FACP Office Visit 03/22/2012 10:30a [facility] Internal Medicine Ilda Acuna, N.P. 55246 719.48 - [place] 780.4 Office Visit 03/08/2012 9:00a [facility] Internal Medicine Ilda Acuna, N.P. 72928 719.48 - [place] 780.4 Office Visit 01/26/2012 11:00a [facility] Internal Medicine Samuel Dinero, 37663 V70.0 - Alex Doyle,FACP 401.1 272.2 702.0 Office Visit 09/26/2011 10:50a DO Not Use Sand Cutter Operator At Samuel Dinero, 80583 275.42 Michell Doyle,FACP 401.1 272.2 Office Visit 09/12/2011 2:00p DO Not Use Sand Cutter Operator At Kika Anderson M.D. 78574 848.3 [facility] 787.3 Office Visit 06/27/2011 4:15p DO Not Use Sand Cutter Operator At Ilda Acuna, N.P. 56017 724.3 [facility] Office Visit 06/13/2011 10:00a DO Not Use Sand Cutter Operator At Ilda Acuna, N.P. 68282 307.49 [facility] 787.3 Office Visit 02/20/2011 9:00a DO Not Use Sand Cutter Operator At Samuel Dinero, 81394 724.3 Michell Doyle,FACP 284.1 275.42 780.79 Office Visit 01/12/2011 11:00a DO Not Use Sand Cutter Operator At Samuel Dinero, 48470 780.79 Sanborncaitlyn Doyle,FACP 272.2 733.09 401.1 585.2 Office Visit 11/15/2010 11:00a DO Not Use Sand Cutter Operator At [facility], 06488 461.9 Michell Mendez.Bennett Office Visit 07/14/2010 10:40a DO Not Use Sand Cutter Operator At [facility] Bennett Tyaskin, 67333 088.81 Michell Mendez.Bennett,FACP 281.2 724.3 733.09 272.2 V76.10 Office Visit 06/28/2010 11:40a DO Not Use Sand Cutter Operator At Darnell Juares M.D. 89805 066.1 [facility] Office Visit 10/26/2009 11:00a DO Not Use Sand Cutter Operator At [facility] [address] 285.8 Sanborncaitlyn Mendez.Bennett,FACP 275.0 V76.51 381.81 Office Visit 06/08/2009 11:00a DO Not [place] [address] 477.9 [facility] V76.10 780.79 272.2 733.00 V72.31 Office Visit 11/12/2008 1:40p DO Not Use Sand Cutter Operator At [facility] Bennett [place], 399[address] 725 Michell Doyle,FACP Office Visit 04/27/2008 10:00a DO Not Use [place] [address] 272.2 [facility] 401.9 715.90 585.2 477.9 V70.0 V72.31 V76.11 Office Visit 01/03/2008 9:20a DO Not Use Sand Cutter Operator At [facility] Bennett Dinero, 99349 272.2 Michell Doyle,FACP 401.9 Office Visit 12/19/2007 10:20a DO Not Use Sand Cutter Operator At [facility] Bennett [place], 16644 715.90 Sanborncaitlyn Doyle,FACP 719.41 Office Visit 10/28/2007 11:00a DO Not Use Sand Cutter Operator At [facility] Bennett [place], 69569 585.2 Michell Doyle,FACP 401.9 272.2 477.9 733.00 Plan of Care Future Appointment(s):02/15/2018 10:20 am - Samuel Dinero M.D.,FACP at [facility] Internal Medicine - [address]/09/2018 - Samuel Dinero M.D.,[id number] Influenza due to unidentified influenza virus w oth manifestComments:Will check for influenza now. I will call you to let you know the results.Continue drinking fluids and taking cough medicine. If you continue to have a productive cough for 4-5 days more or persistent fever, please call and we can consider antibiotics.
[2018-02-05] MEDS ORDERED: NS 0.9% 250 ML* 250 ML IV ONE (06:07)
--- NOTE | 2018-02-05 06:15 | ED ---
Shortness of Breath - HPI Summary HPI Summary: Patient is in 82-year-old female who presents emergency department for shortness of breath that started this morning. Patient states she was diagnosed with the flu last week and was prescribed Tamiflu. She was also started on Zithromax yesterday. Patient states she woke up early this morning and felt like she could not catch her breath. She had associated symptoms of diaphoresis and chest pressure. Patient also notes that she's had vomiting and diarrhea the last several days as well. Symptoms are moderate in severity. Lying flat makes symptoms worse. Sitting up makes symptoms better. Has medical history of hypertension, hyperlipidemia, - History of Current Complaint Chief Complaint: EDUpperRespComplaint Time Seen by Provider: 02/05/18 05:49 Hx Obtained From: Patient Onset/Duration: Sudden Onset Timing: Intermittent Episodes Lasting: Current Severity: Moderate Dyspnea At: Orthopena Associated Signs & Symptoms: Cough (Productive), Chest Pain Unrelated to Cough, Chills, Diaphoresis - Risk Factors Cardiac: Elevated lipids, Hypertension - Allergy/Home Medications Allergies/Adverse Reactions: Allergies Allergy/AdvReac Type Severity Reaction Status Date / Time citalopram AdvReac Intermediate Nausea Verified 02/05/18 05:40 Sulfa (Sulfonamide AdvReac Intermediate Rash Verified 02/05/18 05:40 Antibiotics) seafood,shellfish Allergy Nausea Uncoded 02/05/18 05:40 visapaque Allergy Rash And Uncoded 02/05/18 05:40 Itching Home Medications: Home Medications Acetaminophen TAB* [Tylenol TAB*] 325 - 650 mg PO Q6H PRN 02/05/18 [History Confirmed 02/05/18] Albuterol HFA INHALER* [Ventolin HFA Inhaler*] 2 puff INH Q4H PRN 02/05/18 [ History Confirmed 02/05/18] Azithromycin TAB* [Zithromax TAB (Z-GANESH) 250 mg #6 tabs] 250 mg PO DAILY [History Confirmed 02/05/18] Docusate CAP* [Colace Cap*] 100 mg PO DAILY PRN 02/05/18 [History Confirmed ] HYDROcodone/ACETAMIN 5-325 MG* [[place] 5-325 TAB*] 1 tab PO DAILY PRN 02/05/18 [ History Confirmed 02/05/18] LoraTADine TAB(NF) [Claritin 10 MG TAB(NF)] 5 mg PO DAILY 02/05/18 [History Confirmed 02/05/18] Multivitamins/Minerals TAB* [Theragran/minerals TAB*] 1 tab PO DAILY 02/05/18 [ History Confirmed 02/05/18] [place]-3 Fatty Acids (Nf) [Fish Oil (NF)] 2,000 mg PO DAILY 02/05/18 [History Confirmed 02/05/18] Oseltamivir CAP* [Tamiflu CAP*] 75 mg PO BID 02/05/18 [History Confirmed ] Propylene Glycol/Peg 400/Pf [Systane 0.3-0.4% Eye Drops] 1 drop BOTH EYES BID PRN 02/05/18 [History Confirmed 02/05/18] Vitamin B Complex TAB* [B Complex-50*] 1 tab PO DAILY 02/05/18 [History Confirmed 02/05/18] guaiFENesin/CODIEN 100MG-10MG* [Robitussin AC 100Mg-10Mg*] 10 ml PO Q4H PRN [History Confirmed 02/05/18] PMH/Surg Hx/FS Hx/Imm Hx Previously Healthy: Yes Endocrine/Hematology History: Denies: Hx Diabetes, Hx Anemia Cardiovascular History: Reports: Hx Hypercholesterolemia, Hx Hypertension GI History: Denies: Hx Jaundice Musculoskeletal History: Denies: Hx Osteoporosis Infectious Disease History: No Infectious Disease History: Denies: Traveled Outside the [place] in Last 30 Days - Social History Occupation: Retired Lives: Alone Substance Use Type: Reports: None Hx Tobacco Use: No Review of Systems Positive: Chills Eyes: Negative ENT: Negative Positive: Chest Pain Positive: Shortness Of Breath, Cough Positive: Abdominal Pain, Vomiting, Diarrhea, Nausea Genitourinary: Negative Skin: Negative Neurological: Negative Negative: Headache, Weakness, Paresthesia, Numbness, Syncope, Slurred Speech All Other Systems Reviewed And Are Negative: Yes Physical Exam Triage Information Reviewed: Yes Vital Signs On Initial Exam: Initial Vitals Temp Pulse Resp BP Pulse Ox 98.3 F 86 20 161/59 95 02/05/18 05:38 02/05/18 05:38 02/05/18 05:38 02/05/18 05:38 02/05/18 05:38 Vital Signs Reviewed: Yes Appearance: Positive: Well-Appearing - Patient sitting up in bed in no acute distress. Appears tired, nontoxic. Breathing easily on room air. Daughter present. Skin: Positive: Warm, Dry Head/Face: Positive: Normal Head/Face Inspection Eyes: Positive: Normal Neck: Positive: Supple. Negative: Nuchal Rigidity Respiratory/Lung Sounds: Positive: Other - Mild crackles in bilaterally bases. Cardiovascular: Positive: Normal, RRR Abdomen Description: Positive: Nontender, Soft Neurological: Positive: Normal, CN Intact II-III Psychiatric: Positive: Normal Diagnostics - Vital Signs Vital Signs Temp Pulse Resp BP Pulse Ox 02/05/18 06:02 75 95 02/05/18 05:38 98.3 F 86 20 161/59 95 - Laboratory Result Diagrams: 02/05/18 06:12 02/05/18 06:12 Lab Statement: Any lab studies that have been ordered have been reviewed, and results considered in the medical decision making process. Course/Dx - Course Course Of Treatment: Pt. presenting to the ER for SOB. Recently dx with influenza. Is currently on tamiflu and zithromax. She is afebrile with stable vital signs. O2 saturation is 95% on RA which is normal. Pt. placed onto monitor. Pending labs, ecg, CXR. ECG done at 0614 shows a sinus rhythm of 68bpm , normal axis, nonspecific t wave abdnormalities, no ST elevation or depression. CXR is negative for infiltrate, effusion or acute change reading per myself and radiology. CBC shows chronic mild low platelets and WBC. CMP is unremarkable. Mag mildly low at 1.7. Negative troponin and BNP. Negative urine. On re-examination pt. is resting comfortably. She was able to ambulate around the departement, but felt SOB when returned to her bed. Will admit for further evaluation of chest pressure and SOB. Hospitalist was consulted. Dr. Awan has accepted pt. to her service. - Diagnoses Differential Diagnosis/HQI/PQRI: Positive: CHF, MT, Pneumonia Provider Diagnoses: Influenza, Chest tightness or pressure, Orthopnea Discharge - Sign-Out/Discharge Documenting (check all that apply): Discharge - Discharge Plan Condition: Stable Disposition: ADMITTED TO [facility] - Billing Disposition and Condition Condition: STABLE Disposition: [facility]
[2018-02-05 06:21] LABS: ABS Basophils 0 10^3/ul (0-0.2); ABS Eosinophils 0 10^3/ul (0-0.6); ABS Lymphocytes 0.8 10^3/ul (1.0-4.8); ABS Monocytes 0.3 10^3/ul (0-0.8); ABS Neutrophils 1.9 10^3/ul (1.5-7.7); ABS Nucleated RBC 0 10^3/ul; Eosinophil % 0.4 % (0-6); Hematocrit 35 % (35-47); Hemoglobin 12.2 g/dl (12.0-16.0); Lymphocyte % 27.1 % (25-47); Mean Corpuscular HGB Conc 35 g/dl (31-36); Mean Corpuscular Hemoglobin 32 pg (27-31); Mean Corpuscular Volume 91 fL (80-97); Nucleated Red Blood Cells % 0; Platelet Count 103 10^3/ul (150-450); Red Blood Count 3.86 10^6/ul (4.0-5.4); Red Cell Distribution Width 13 % (10.5-15)
[2018-02-05 06:43] LABS: Urine Appearance Clear; Urine Blood Negative (Negative); Urine Color Yellow; Urine Ketones Negative (Negative); Urine Protein Negative (Negative); Urine Specific Gravity 1.005 (1.010-1.030); Urine Urobilinogen Negative (Negative)
--- NOTE | 2018-02-05 08:08 | RAD ---
HISTORY: Chest pain COMPARISONS: October 31, 2017 VIEWS: 4: Frontal dual-energy and lateral views of the chest. FINDINGS: CARDIOMEDIASTINAL SILHOUETTE: Annular calcifications are noted. The cardiomediastinal silhouette is otherwise unremarkable. OSEAS: The oseas are normal. PLEURA: The costophrenic angles are sharp. No pleural abnormalities are noted. LUNG PARENCHYMA: The lungs are clear. ABDOMEN: The upper abdomen is clear. There is no subphrenic gas. BONES AND SOFT TISSUES: Degenerative changes are noted along the spine. As osteopenia. OTHER: None. IMPRESSION: NO ACTIVE CARDIOPULMONARY DISEASE.
[2018-02-05] MEDS ORDERED: Albuterol 2.5 MG/3 ML NEB.SOL* (0.083%) INH ONE (08:30)
[2018-02-05] MEDS ORDERED: SYSTANE BOTH EYES PRN (09:17)
[2018-02-05] MEDS ORDERED: guaiFENesin/CODIEN 100MG-10MG* 5 ML UDC PO PRN (09:17)
[2018-02-05] MEDS ORDERED: Docusate CAP* 100 MG PO PRN (09:17)
[2018-02-05] MEDS ORDERED: HYDROcodone/ACETAMIN 5-325 MG* 1 TAB PO PRN (09:17)
[2018-02-05] MEDS ORDERED: Acetaminophen TAB* 325 MG PO PRN (09:17)
[2018-02-05] MEDS ORDERED: Albuterol HFA INHALER* 8 gm MDI INH PRN (09:17)
[2018-02-05] MEDS ORDERED: PROCHLORPERAZINE INJ 5 MG/ML 2 ML VIAL IV PRN (09:20)
[2018-02-05] MEDS ORDERED: Calcium Citrate TAB* 200 MG PO SCH ×2 (09:30→11:23)
[2018-02-05] MEDS ORDERED: Magnesium Sulfate 1 GM IV* 1 GM/100 ML BAG IV ONE (10:12)
[2018-02-05] MEDS ORDERED: NS 0.9% 1000 ML* 1,000 ML IV SCH (10:15)
--- NOTE | 2018-02-05 10:59 | RAD ---
INDICATION: Dyspnea. Evaluate for pneumonia COMPARISON: Chest x-ray February 05, 2018; CT chest September 05, 2013 TECHNIQUE: Axial source images were obtained from the thoracic inlet to the hemidiaphragms. Coronal and sagittal reconstructed images were acquired. The visualized neck to include the thyroid appear normal. Chest wall: There are no acute abnormalities of the bony thorax or chest wall. There is no supraclavicular, infraclavicular, or axillary lymphadenopathy. Lungs : There are no pulmonary parenchymal masses. There is mild linear change in both lung bases left greater than right most consistent with platelike atelectasis or scarring. The pulmonary interstitium appears normal. There are no endobronchial lesions. Cardiomediastinal structures: The heart is normal in size. There is no pericardial effusion. There is no evidence of aortic aneurysm or dissection. There is a calcified mitral annulus. There are aortic intimal calcifications as well as coronary artery calcifications The pulmonary vessels appear normal. There is no mediastinal or hilar adenopathy. The esophagus appears normal. Pleura : There are no pleural-based masses or effusions. Other: There are no acute or significant CT findings of the visualized upper abdomen. IMPRESSION: MILD BIBASILAR SCARRING OR ATELECTASIS, OTHERWISE NEGATIVE.
[2018-02-05] MEDS: Cholecalciferol TAB* 400 UNIT PO SCH (11:52)
[2018-02-05] MEDS: Multivitamins/Minerals TAB PO SCH (11:53)
[2018-02-05] MEDS: PTO:Azithromycin TAB* 250 MG PO SCH (11:53)
[2018-02-05] MEDS: Calcium Citrate TAB* 200 MG PO SCH (11:53)
[2018-02-05] MEDS: Aspirin EC TAB* 81 MG TAB.EC PO SCH (11:53)
[2018-02-05] MEDS: Lisinopril TAB* 10 MG PO SCH (11:53)
[2018-02-05] MEDS: OMEGA-3 FATTY ACIDS (NF) 1,000 MG CAP PO SCH (11:53)
[2018-02-05] MEDS: Ascorbic Acid TAB* 500 MG PO SCH (11:53)
[2018-02-05] MEDS: OSELTAMIVIR 75 MG PO SCH ×2 (11:53→21:02)
--- NOTE | 2018-02-05 13:16 | HP ---
CC: Dr. Samuel Dinero * HISTORY AND PHYSICAL: DATE OF ADMISSION: 02/05/18 TIME OF EVALUATION: 9 a.m. PRIMARY CARE PROVIDER: Dr. Samuel Dinero CHIEF COMPLAINT: Chest pain, shortness of breath. HISTORY OF PRESENT ILLNESS: Mrs. Oliver is an 82-year-old lady with a past medical history of anemia of renal disease, CKD stage 3, monoclonal paraproteinemia, impaired fasting glucose, gout, sciatica, osteoarthritis, hyperlipidemia, hypertension, who presented to the emergency room with complaints of chest pain and shortness of breath. The patient states that her symptoms go back to more than a week ago when she started feeling sick around 01/28/18 with body aches, nausea, diarrhea and fever. She was seen by Dr. Dinero on 01/31/18 and diagnosed with influenza. She was prescribed Tamiflu and general symptoms of body ache and fever improved but she continued to have cough and a sensation of chest pressure. She was then prescribed azithromycin that she started yesterday. She states that last night she felt worse with significant diaphoresis. She had to change her night gown and bed sheets due to them being drenched. She got up to go to the bathroom and she felt severely dyspneic, lightheaded and she had worsening of the chest pain that she had been experiencing since her symptoms had started and this prompted her visit to the emergency room. At the time of my evaluation, the patient states that she is feeling weak but the breathing has improved as well as diaphoresis. While in the emergency room , the patient was able to ambulate around the unit with oxygen saturation of 96 % on room air but she states that she still felt short of breath with exertion. The patient describes that the chest pain as heaviness on her anterior chest wall diffusely, 4/10 intensity with no radiation. No alleviating or precipitating factors. PAST MEDICAL HISTORY: 1. Anemia of renal disease. 2. CKD, stage 3. 3. Monoclonal paraproteinemia. 4. Impaired fasting glucose. 5. Gout. 6. Sciatica. 7. Osteoarthritis. 8. Allergic rhinitis. 9. Hyperlipidemia. 10. Hypertension. MEDICATIONS: 1. Acetaminophen 325 to 650 mg p.o. q. 6 hours as needed for pain or fever. 2. Albuterol HFA 2 puffs inhaled q. 4 hours p.r.n. shortness of breath. 3. Vitamin C 500 mg p.o. daily. 4. Aspirin 81 mg p.o. daily. 5. Atorvastatin 20 mg p.o. daily. 6. Z-[place] 250 mg p.o. daily. 7. Citracal 1 tablet p.o. daily. 8. Colace 100 mg p.o. daily p.r.n. constipation. 9. Guaifenesin/codeine 100 mg/10 mg, 10 mL p.o. q. 4 hours p.r.n. cough. 10. Hydrocodone/acetaminophen 5/325 mg 1 tablet p.o. daily p.r.n. pain. 11. Lisinopril 10 mg p.o. daily. 12. Loratadine 5 mg p.o. daily. 13. Multivitamin 1 tablet p.o. daily. 14. Fish oil 2000 mg p.o. daily. 15. Tamiflu 75 mg p.o. b.i.d. 16. Systane eyedrops, 1 drop to both eyes b.i.d., as needed for the right eye. 17. Vitamin B complex 1 tablet p.o. daily. ALLERGIES: With CITALOPRAM, the patient had nausea. With SULFA, the patient had rash. With SEAFOOD, she has nausea; and with VISIPAQUE, she had rash and itching. FAMILY HISTORY: Father due to vascular disease. Mother due to [place]. Mother also had hypertension and stroke. SOCIAL HISTORY: No history of alcohol or tobacco abuse. She is retired, lives by herself in [place], and surrogate decision maker is her daughter Connie Najera, phone number is [phone]. REVIEW OF SYSTEMS: A 14-point review of systems was performed and all the pertinent negative and positive findings are in the HPI. PHYSICAL EXAMINATION GENERAL: The patient is an elderly lady, lying in stretcher, appears to be very tired, in no acute distress. VITAL SIGNS: Temperature 98.3, heart rate is 76, respiratory rate is 18, oxygen saturation is 95% on room air, blood pressure 147/56. HEENT: Pupils are equal. Moist mucous membranes. CHEST: Breath sounds bilaterally with scattered wheeze bilaterally. CVS: Normal S1, S2. Regular rate and rhythm. ABDOMEN: Soft, nontender, nondistended. Bowel sounds are present. EXTREMITIES: No edema. NEUROLOGIC: She is alert, oriented x3. Able to move all 4 extremities. LABORATORY/IMAGING DATA: The patient had a CBC that showed WBC of 3.0, hemoglobin of 12.2, hematocrit of 35, platelets of 103. Chemistries showed a sodium of 137, potassium 4.2, chloride of 103, bicarb of 24, BUN of 21, creatinine of 1.07, glucose of 118, calcium 10.3, magnesium 1.7. LFTs were normal except for mild elevation of her AST of 49. Urinalysis was negative. Chest x-ray showed no active cardiopulmonary disease. EKG done on 02/05/18 at 6:14 a.m. showed sinus rhythm at 68 beats per minute with APCs, T-wave inversion in 3, flattening in aVF. There is no significant change when compared to her prior EKG from June 2013. Her first troponin was 0.03. ASSESSMENT AND PLAN: Ms. Oliver is an 82-year-old lady with a past medical history of anemia of renal disease, chronic kidney disease stage 3, monoclonal paraproteinemia, impaired fasting glucose, gout, sciatica, osteoarthritis, allergic rhinitis, hyperlipidemia, hypertension who was recently diagnosed with the flu and started on Tamiflu and subsequently started on azithromycin who presents to the emergency room with complaints of chest pain, shortness of breath and diaphoresis, likely secondary to bronchitis. 1. Bronchitis. The patient states this is her second episode this year. In October, she was diagnosed with the flu clinically and was treated at that time with improvement but now she came down with the flu again and on physical examination, she has wheezes suggestive of bronchitis. Her chest x-ray showed no acute infiltrate but she is at risk for post influenza pneumonia. For that reason, I am going to check a CT of the chest without contrast to better delineate her lung parenchyma. We will continue her on her azithromycin since she just took one dose yesterday. We will also continue her symptomatic treatment and IV hydration. 2. Influenza. The patient has 3 more doses of Tamiflu to complete her treatment. 3. Chest pain. Rule out acute coronary syndrome. I believe her chest pressure is likely associated to her flu and bronchitis but she will be admitted to telemetry. We will check serial troponins. If acute coronary syndrome is ruled out, she can follow up with her primary care provider as outpatient to pursue a stress test in the near future when she is feeling recovered from her flu. 4. Hypertension. It is controlled. We will continue lisinopril. 5. DVT prophylaxis. The patient has a score of 3 on the DVT Prophylaxis Assessment Guide and she will be started on subcutaneous heparin. 6. Code status was discussed with the patient and her daughter at bedside and the patient wishes to be a do not resuscitate. TIME SPENT: Approximately 60 minutes was spent with the patient's interview, medical records review, physical examination to complete this admission, more than half of this time was spent [id number] with patient and coordination of care. [id number]/CPS #: [id number] SINTIA
[2018-02-05] MEDS: Heparin VIAL(*) 5000 UNITS/ML VIAL (FIVE THOUSAND) SUBCUT SCH ×2 (14:10→21:02)
[2018-02-05] MEDS ORDERED: Atorvastatin* 20 MG TAB PO SCH (17:00)
[2018-02-06] MEDS: Heparin VIAL(*) 5000 UNITS/ML VIAL (FIVE THOUSAND) SUBCUT SCH (05:11)
[2018-02-06] MEDS: Lisinopril TAB* 10 MG PO SCH (08:54)
[2018-02-06] MEDS: OMEGA-3 FATTY ACIDS (NF) 1,000 MG CAP PO SCH (08:54)
[2018-02-06] MEDS: Cholecalciferol TAB* 400 UNIT PO SCH (08:55)
[2018-02-06] MEDS: Multivitamins/Minerals TAB PO SCH (08:55)
[2018-02-06] MEDS: Ascorbic Acid TAB* 500 MG PO SCH (08:55)
[2018-02-06] MEDS: Calcium Citrate TAB* 200 MG PO SCH (08:56)
[2018-02-06] MEDS: Aspirin EC TAB* 81 MG TAB.EC PO SCH (08:56)
[2018-02-06] MEDS: OSELTAMIVIR 75 MG PO SCH (08:57)
[2018-02-06] MEDS: PTO:Azithromycin TAB* 250 MG PO SCH (08:57)
[2018-02-06] MEDS ORDERED: Vitamin B Complex TAB PO SCH (09:00)
[2018-02-06] MEDS ORDERED: Cetirizine* 10 MG TAB PO SCH (09:00)
[2018-02-06 12:23] VITALS: BP 132/58
--- NOTE | 2018-02-09 00:34 | DS ---
DISCHARGE SUMMARY: ADDENDUM: REVIEW OF SYSTEMS: The patient denies any fever or chills. Denies any shortness of breath. She olivier s report a cough that is nonproductive. She also reports chest pain and rib pain with palpation, javier p breath and coughing. She denies any nausea, vomiting, or diarrhea. She denies any dizziness or li ghtheadedness. She denies any abdominal pain. PHYSICAL EXAMINATION: Ms. Oliver is sitting on the edge of the bed. She appears to be in no acute d istress. Neuro: She is alert and oriented x3. She is able to move all extremities. There is no fo lisandra neuro deficits. Extraocular eye movements are intact. Heart: S1, S2. Regular rate and rhythm. There are no rubs or gallops. Lungs: Clear to auscultation bilaterally with diminished breath kely nds in the bases. She does have no accessory muscle use. Abdomen: Soft and nontender. Bowel sound s are positive x4. Extremities: There is no clubbing or cyanosis or edema. Skin: Intact. PATTIE QIU, [employer] SUPERVISOR [id number]/CPS #: [id number]
--- NOTE | 2018-02-09 00:42 | DS ---
CC: Samuel Dinero MD DISCHARGE SUMMARY: DATE OF ADMISSION: 02/05/18 DATE OF DISCHARGE: 02/06/18 PRIMARY CARE PROVIDER: Samuel Dinero MD CHIEF COMPLAINT: 1. Chest pain. 2. Shortness of breath. SECONDARY DIAGNOSES: 1. Anemia of renal disease. 2. Chronic kidney disease, stage 3. 3. Monoclonal paraproteinemia. 4. Impaired fasting glucose. 5. Gout. 6. Sciatica. 7. Osteoarthritis. 8. Allergic rhinitis. 9. Hyperlipidemia. 10. Hypertension. STUDIES COMPLETED WHILE IN THE HOSPITAL: She had a chest x-ray on 02/05/18. Radiologist's impression : No active cardiopulmonary disease. The lung mcdaniels are clear. She had electrocardiogram on 02/05, which showed sinus rhythm at a rate of 68. She had a CT of the chest on 02/05/18. Radiologist's impression: Mid bibasilar scarring or atelecta sis, otherwise negative. The pulmonary interstitium appears normal. There are no endobronchial lesi ons. DISCHARGE MEDICATIONS: Guaifenesin 200 mg p.o. q.4 hours as needed for cough and congestion. Continued Home Medications: 1. Acetaminophen 325-650 mg p.o. q.6 hours as needed for pain or fever. 2. Albuterol HFA inhaler 2 puffs q.4 hours as needed for shortness of breath or wheezing. 3. Vitamin C 500 mg p.o. daily. 4. Aspirin 81 mg p.o. daily. 5. Atorvastatin 20 mg p.o. daily. 6. Azithromycin 250 mg p.o. daily x1 more day. 7. Calcium/vitamin D 1 tablet p.o. daily. 8. Docusate 100 mg p.o. daily. 9. Guaifenesin with codeine 100 mg/10 mg 10 mL q.4 hours as needed for cough. 10. Hydrocodone 1 tablet p.o. daily p.r.n. pain. 11. Lisinopril 10 mg p.o. daily. 12. Claritin 5 mg p.o. daily. 13. Multivitamin 1 tablet p.o. daily. 14. [place]-3 fatty acids 2000 mg p.o. daily. 15. Tamiflu 75 mg p.o. daily for a total of 5 days. 16. Propylene glycol/PEG 400 sustained 0.3-0.4 eye drops, 1 drop both eyes b.i.d. 17. Vitamin B complex 1 p.o. daily. HISTORY OF PRESENT ILLNESS AND HOSPITAL COURSE: Ms. Oliver is an 82-year-old lady with a past medica l history of anemia of renal disease; chronic kidney disease, stage 3; monoclonal paraproteinemia; im paired fasting glucose; gout; sciatica; osteoarthritis; hyperlipidemia; hypertension who presented to the emergency room with complaints of chest pain and shortness of breath. The patient states that h er symptoms go back to more than a week ago when she started feeling sick around 01/28/18 with body a ches, nausea, diarrhea and fever. The patient was seen by Dr. Dinero on 01/31/18 and diagnosed with in [facility]. The patient at that time was prescribed Tamiflu and general symptoms of body aches and feve rs improved, but she continued to have cough and a sensation of chest pressure. The patient was pres cribed azithromycin that she started yesterday. The patient states that last night she felt worse wi th significant diaphoresis. She had to change her night gown and the bed sheets due to being drenche d. She got up to go to the bathroom and felt severely dyspneic, lightheaded and she had worsening of the chest pain she had been experiencing since the symptoms started and this prompted her to present to the emergency room for further evaluation. During her hospitalization, the patient reported feel ing weak, but that her breathing had improved as well as the diaphoresis. The patient was able to am bulate around the unit with an oxygenation saturation of 96%. She did feel short of breath with exer tion. She describes the chest pain as heaviness in the anterior wall diffusely for 10/10 in intensit y with no radiation. No alleviating or precipitating factors were present. During her hospitalization, routine lab work was drawn. Her troponins were 0.03 and 0.04 x4. Her cr eatinine was 1.07, glucose was 118, magnesium was 1.7. She did receive magnesium 1 g IV for her low magnesium level. She was continued on her Tamiflu as well as azithromycin during this hospitalizatio n. She reports that her chest pain increases with deep breath and she also reports that with palpati on to her chest she does have increased chest pain, the same chest pain that she is feeling. She als o reports that with coughing the chest pain has increased. The patient was monitored on telemetry th roughout her hospitalization. There were no significant findings. At this time, Ms. Oliver is stabl e for discharge home. Vital signs are as follows: Temperature was 98.2, heart rate was 70, respirations 16, O2 saturation was 97%, blood pressure 132/58. DISCHARGE PLAN: Ms. Oliver will be discharged back home. ACTIVITY: As tolerated. DIET: She should continue a heart healthy low sodium diet. 1. Bronchitis. The patient should complete her prescription of azithromycin as previously prescribe d as she only has 1 dose left. Her chest x-ray showed no acute infiltrate. Her CT was also within n ormal limits. There was no infiltrates on the CT scan. 2. Influenza. She completed her 3 doses of Tamiflu during her hospitalization. No further treatment except for symptomatic and supportive care. 3. For her chest pain, her chest pain was ruled out. Her troponins stayed flat at 0.03 and 0.04 x3. Her chest pain was increased with coughing and deep breath and also palpation of her chest. I pablo ashley that her chest pain is related to costochondritis due to her coughing. She has been previously p rescribed cough medication. I instructed her to use the cough medication as needed for the cough. I also instructed to her that she may take plain guaifenesin if she does not like how the guaifenesin w ith codeine makes her feel. Given the patient's serial troponins remain flat, if the patient continu es to have chest pain after her flu and bronchitis symptoms have resolved, she can follow up with her primary care provider as an outpatient to pursue a stress test in the near future when she has fully recovered from her current illness. 4. Hypertension. She should continue her lisinopril. She was also instructed to resume all of her previous home medications. FOLLOWUP: She should follow up with her primary care provider in 4 to 7 days. The patient was instructed to return to the emergency room for any increased chest pain or shortness of breath or any other concerning medical conditions. This is a summarization of her hospitalization. For further details, please see the entire medical r ecord. TIME SPENT: Time spent on this discharge was approximately 60 minutes; greater than half that time w as spent with the patient discussing discharge plans and instructions. CONDITION ON DISCHARGE: Stable. This plan was discussed with my attending, Dr. Eusebio Barrett, and he is in agreement with my plan. PATTIE QIU, NEIDA [id number]/CPS #: [id number]
== END 2018-02-06 14:50 | disposition home or self-care (01) ==
LOC: ED 05:35 → MEDTELE 09:14
PROVIDERS: ADMIT Internal Medicine; ATTEND Internal Medicine
DX: J40 Bronchitis, not specified as acute or chronic (principal); J11.1 Influenza due to unidentified influenza virus with other respiratory manifestations; R07.9 Chest pain, unspecified; R06.02 Shortness of breath; D63.1 Anemia in chronic kidney disease; N18.3 Chronic kidney disease, stage 3 (moderate); D47.2 Monoclonal gammopathy; R73.01 Impaired fasting glucose; M10.9 Gout, unspecified; M54.30 Sciatica, unspecified side; M19.90 Unspecified osteoarthritis, unspecified site; J30.9 Allergic rhinitis, unspecified; E78.5 Hyperlipidemia, unspecified; I10 Essential (primary) hypertension; Z79.82 Long term (current) use of aspirin
CPT/HCPCS: 36415; 71046; 71250; 80053; 81003; 83605; 83735; 83880; 84484; 85025; 93005; 94640; 99283; A9270-GY; G0378; J0780; J1644; J3475

== ENCOUNTER 2018-05-10 12:28 | Inpatient (IN) | payer MEDICARE ==
[2018-05-10] MEDS ORDERED: traMADol TAB* 50 MG PO ONE (13:12)
--- NOTE | 2018-05-10 14:19 | RAD ---
INDICATION: Fall. Complains of low back pain COMPARISON: Cervical spine March 12, 2012 TECHNIQUE: Noncontrast axial source images was performed from the skull base to the thoracic inlet. Coronal and and sagittal reformatted images were generated. FINDINGS: Vertebrae: There is no fracture or acute focal bony lesion. There are arthritic changes with advanced disc space narrowing from C5 through C7. There is facet arthropathy from C3 through C7. Alignment: The craniocervical junction appears unchanged. Subtle anterolisthesis of C4 on C5 and C7-T1 are likely osteoarthritic in nature and appears similar on the plain radiographs. The cervical vertebrae are otherwise normally aligned. Central Canal: There are no significant CT abnormalities of the central canal. MR imaging is a more sensitive method to evaluate the canal and foramina. Intervertebral disc spaces: The disc spaces are maintained. Brain: The visualized brain appears unremarkable. Soft tissues: The visualized soft tissue elements of the neck are unremarkable. The prevertebral soft tissues appear normal. The lung apices are clear. IMPRESSION: ADVANCED OSTEOARTHRITIC CHANGES. NO ACUTE FINDINGS.
--- NOTE | 2018-05-10 14:23 | RAD ---
HISTORY: fall, low back pain COMPARISONS: Chest CT dated February 05, 2018 TECHNIQUE: Multiple contiguous axial CT scans were obtained of the thoracic spine without intravenous contrast, with coronal and sagittal multiplanar reformations. FINDINGS: SPINAL CANAL: Evaluation of the central canal is limited on CT technique; however, there is no obvious canalicular mass or epidural hemorrhage. ALIGNMENT: There is mild scoliotic curvature of the spine. VERTEBRAL BODIES: There is mild cortical irregularity of the L1 vertebral body with linear lucency paralleling the superior endplate suggestive of an acute compression fracture. There is no significant osseous retropulsion. JOINTS: There is osteoarthritis of the costovertebral articulations. MUSCULATURE: Unremarkable INTERVERTEBRAL DISCS: There is diffuse loss of intervertebral disc height throughout the spine. AXIAL IMAGES: There is no osseous central canal stenosis or neuroforaminal narrowing. SOFT TISSUES: There is atherosclerosis of the aorta. OTHER: None IMPRESSION: ACUTE/SUBACUTE COMPRESSION FRACTURE OF L1 WITHOUT OSSEOUS RETROPULSION. PRELIMINARY FINDINGS WERE DISCUSSED WITH PHU GONZALEZ IN THE EMERGENCY DEPARTMENT AT APPROXIMATELY 2:19 PM ON MAY 10, 2018.
--- NOTE | 2018-05-10 14:26 | RAD ---
CLINICAL HISTORY: fall, back pain COMPARISON: CT of the thoracic spine dated May 10, 2018 TECHNIQUE: Multiple contiguous axial CT scans were obtained of the abdomen and pelvis, without intravenous contrast enhancement. Coronal and sagittal multiplanar reformations are submitted for review. Oral contrast was not administered. FINDINGS: The study is limited by the lack of intravenous contrast. This limits evaluation of the solid organs and vasculature. LUNG BASES: The lung bases are clear. LIVER: The liver is normal in shape, size, contour, and attenuation. BILE DUCTS: There is no intrahepatic or extrahepatic biliary dilatation. GALLBLADDER: The gallbladder is normal, without pericholecystic inflammatory change. PANCREAS: The pancreas is normal, without mass or ductal dilatation. SPLEEN: Normal in size and appearance. UPPER GI TRACT: Evaluation of the gastrointestinal tract is limited by incomplete gastric distention. There is a small sliding hiatal hernia. SMALL BOWEL AND MESENTERY: The small bowel is normal in contour, course, and caliber. There is no obstruction or dilatation. COLON: The colon is normal in contour, course, caliber. There is no pericolonic inflammatory change. ADRENALS: Normal bilaterally. KIDNEYS: There is moderate pelvocaliectasis on the right with mild hydroureter. There is an exophytic simple cyst of the lower pole of the right kidney. BLADDER: The bladder is smooth in contour. PELVIC ORGANS: The uterus and adnexa are grossly normal for technique. AORTA: There is calcific atherosclerotic disease of the abdominal aorta and its branches, without aneurysmal dilatation IVC: Unremarkable LYMPH NODES: There is no lymphadenopathy by size criteria. ABDOMINAL WALL: There are fat-containing inguinal hernias bilaterally. BONES AND SOFT TISSUES: There is diffuse osteopenia. Degenerative changes are noted of the spine. There is mild cortical irregularity of L1 is noted on the CT of the thoracic spine consistent with acute/subacute compression fracture without osseous retropulsion. OTHER: None IMPRESSION: 1. AGAIN NOTED IS AN ACUTE/SUBACUTE COMPRESSION FRACTURE OF L1 WITHOUT OSSEOUS RETROPULSION. 2. THERE IS RIGHT-SIDED HYDRONEPHROSIS WITHOUT APPRECIABLE URETERAL STONE. 3. ATHEROSCLEROSIS. 4. BILATERAL FAT-CONTAINING INGUINAL HERNIAS. 5. SMALL HIATAL HERNIA..
[2018-05-10] MEDS ORDERED: HYDROcodone/ACETAMIN 5-325 MG* 1 TAB PO ONE (15:02)
[2018-05-10 17:22] LABS: ABS Basophils 0 10^3/ul (0-0.2); ABS Eosinophils 0.1 10^3/ul (0-0.6); ABS Lymphocytes 1.1 10^3/ul (1.0-4.8); ABS Monocytes 0.4 10^3/ul (0-0.8); ABS Neutrophils 7.2 10^3/ul (1.5-7.7); ABS Nucleated RBC 0 10^3/ul; Eosinophil % 0.6 % (0-6); Hematocrit 37 % (35-47); Hemoglobin 12.2 g/dl (12.0-16.0); Lymphocyte % 12.5 % (25-47); Mean Corpuscular HGB Conc 33 g/dl (31-36); Mean Corpuscular Hemoglobin 32 pg (27-31); Mean Corpuscular Volume 95 fL (80-97); Mean Platelet Volume 8.7 um3 (7.4-10.4); Nucleated Red Blood Cells % 0; Platelet Count 125 10^3/ul (150-450); Red Blood Count 3.86 10^6/ul (4.00-5.40); Red Cell Distribution Width 13 % (10.5-15); White Blood Count 8.8 10^3/ul (3.5-10.8)
--- NOTE | 2018-05-10 17:26 | ED ---
Back Pain - HPI Summary HPI Summary: Patient is an 82-year-old female presenting to the ED after a fall this afternoon. She endorses mid right back pain with some extension into the right hip. She has been unable to ambulate since the fall. She endorses 9/10 pain. Denies hitting her head. Denies any other concerns at this time. - History of Current Complaint Chief Complaint: EDBackInjuryPain Stated Complaint: FALL Time Seen by Provider: 05/10/18 12:34 Hx Obtained From: Patient Onset/Duration: Sudden Onset Onset/Duration: Started Hours Ago Timing: Constant Back Pain Location: Is Discrete @ - mid back Severity Initially: Moderate Severity Currently: Moderate Pain Intensity: 8 Pain Scale Used: 0-10 Numeric Character: Aching Aggravating Symptom(s): Lifting, Bending Alleviating Symptom(s): Rest, Position Associated Signs And Symptoms: Positive: Negative. Negative: Swelling, Redness , Bruising - Risk Factors AAA Risk Factors: Negative TAD Risk Factors: Negative Cauda Equina Risk Factors: Negative Epidural Abscess Risk Factors: Negative - Allergies/Home Medications Allergies/Adverse Reactions: Allergies Allergy/AdvReac Type Severity Reaction Status Date / Time citalopram AdvReac Intermediate Nausea Verified 05/10/18 13:16 Sulfa (Sulfonamide AdvReac Intermediate Rash Verified 05/10/18 13:16 Antibiotics) seafood,shellfish Allergy Nausea Uncoded 02/05/18 05:40 visapaque Allergy Rash And Uncoded 02/05/18 05:40 Itching Home Medications: Home Medications Acetaminophen [Tylenol Extra Strength] 500 - 1,000 mg PO Q6H PRN 05/10/18 [ History Confirmed 05/10/18] Albuterol HFA INHALER* [Ventolin HFA Inhaler*] 2 puff INH Q4H PRN 05/10/18 [ History Confirmed 05/10/18] Aspirin EC TAB* [Ecotrin EC Low Dose 81 MG*] 81 mg PO DAILY 05/10/18 [History Confirmed 05/10/18] Atorvastatin* [Lipitor*] 20 mg PO QPM 05/10/18 [History Confirmed 05/10/18] Calcium Citrate/Vitamin D3 [Citracal + D3 Maximum] 1 tab PO BID 05/10/18 [ History Confirmed 05/10/18] Cyanocobalamin TAB* [Vitamin B12 TAB*] 500 mcg PO DAILY 05/10/18 [History Confirmed 05/10/18] Desloratidine (NF) [Clarinex (NF)] 5 mg PO DAILY 05/10/18 [History Confirmed ] Docusate CAP* [Colace Cap*] 100 mg PO DAILY PRN 05/10/18 [History Confirmed ] HYDROcodone/ACETAMIN 5-325 MG* [[place] 5-325 TAB*] 0.5 - 1 tab PO Q4H PRN [History Confirmed 05/10/18] Ipratropium [place] 0.03 % BOTH NARES DAILY 05/10/18 [History Confirmed 05/10/18 ] Lisinopril TAB* [Prinivil TAB*] 10 mg PO DAILY 05/10/18 [History Confirmed 05/10] Hardy-3 Fatty Acids (Nf) [Fish Oil (NF)] 1,000 mg PO DAILY 05/10/18 [History Confirmed 05/10/18] Propylene Glycol/Peg 400/Pf [Systane 0.3-0.4% Eye Drops] 1 drop BOTH EYES TID PRN 05/10/18 [History Confirmed 05/10/18] PMH/Surg Hx/FS Hx/Imm Hx Previously Healthy: Yes Endocrine/Hematology History: Reports: Other Endocrine/Hematological Disorders - anemia of renal disease, monoclonal proteinemia Denies: Hx Diabetes, Hx Anemia Cardiovascular History: Reports: Hx Hypercholesterolemia, Hx Hypertension Respiratory History: Reports: Hx Asthma, Other Respiratory Problems/Disorders - allergic rhinitis Denies: Hx Chronic Obstructive Pulmonary Disease (COPD) GI History: Denies: Hx Jaundice History: Reports: Hx Chronic Renal Failure - CKD stage 3 Musculoskeletal History: Reports: Hx Arthritis - osteoarthritis, Hx Gout Denies: Hx Osteoporosis Sensory History: Reports: Hx Contacts or Glasses Denies: Hx Hearing Aid Opthamlomology History: Reports: Hx Contacts or Glasses - Surgical History Surgery Procedure, Year, and Place: cataracts - Immunization History Hx Pertussis Vaccination: No Immunizations Up to Date: Unable to Obtain/Confirm Infectious Disease History: No Infectious Disease History: Denies: Traveled Outside the [place] in Last 30 Days - Social History Occupation: Unemployed Lives: Alone Alcohol Use: None Hx Substance Use: No Substance Use Type: Reports: None Hx Tobacco Use: No Smoking Status (MU): Never Smoked Tobacco Review of Systems Constitutional: Negative Negative: Fever, Chills, Fatigue, Skin Diaphoresis Negative: Palpitations, Chest Pain Negative: Shortness Of Breath, Cough Genitourinary: Negative Positive: no symptoms reported, see HPI Positive: Arthralgia, Myalgia Skin: Negative Neurological: Negative All Other Systems Reviewed And Are Negative: Yes Physical Exam Triage Information Reviewed: Yes Vital Signs On Initial Exam: Initial Vitals Resp BP 20 148/86 05/10/18 12:40 05/10/18 12:40 Vital Signs Reviewed: Yes Appearance: Positive: Well-Appearing, Well-Nourished, Pain Distress Skin: Positive: Warm, Skin Color Reflects Adequate Perfusion Head/Face: Positive: Normal Head/Face Inspection Eyes: Positive: ROME, Conjunctiva Clear Neck: Positive: Supple, No Lymphadenopathy Cardiovascular: Positive: Normal, RRR, Pulses are Symmetrical in both Upper and Lower Extremities Musculoskeletal: Positive: Pain @ - mid back - R sided - extension to the R hip. Log rolled with pain Neurological: Positive: Speech Normal Psychiatric: Positive: Normal, Affect/Mood Appropriate AVPU Assessment: Alert Diagnostics - Vital Signs Vital Signs Temp Pulse Resp BP Pulse Ox 05/10/18 17:00 12 05/10/18 16:40 12 111/57 05/10/18 16:10 13 141/67 05/10/18 16:00 15 05/10/18 15:41 15 131/98 05/10/18 15:10 17 149/87 05/10/18 15:00 13 05/10/18 14:40 15 159/83 05/10/18 14:11 18 140/54 05/10/18 14:00 8 05/10/18 13:12 97.2 F 77 18 158/65 97 05/10/18 13:11 19 158/65 05/10/18 13:00 19 05/10/18 12:40 20 148/86 - Laboratory Lab Statement: Any lab studies that have been ordered have been reviewed, and results considered in the medical decision making process. Back Pain Course/Dx - Course Course Of Treatment: Treatment, the patient is evaluated for a fall. She endorses pain to the right mid back which extends into the right hip. She states she fell several weeks ago with pain to the left hip. She has been unable to ambulate due to weakness in the legs and severe pain to the mid back. CT obtained which shows an L1 compression fracture. Tramadol 50 mg is given and [place] 10 is given. Attempted to get to the bedpan with pain and she was unable to urinate. Later attempted to get to the commode with a 2 assist which was very difficult. For this reason, hospitalist called for an admission. - Diagnoses Provider Diagnoses: Closed compression fracture of L1 lumbar vertebra Discharge - Sign-Out/Discharge Documenting (check all that apply): Patient Departure - Discharge Plan Condition: Stable Disposition: ADMITTED TO [facility] Referrals: Samuel Dinero MD [Primary Care Provider] - - Billing Disposition and Condition Condition: STABLE Disposition: Admitted to [facility]
[2018-05-10 17:28] LABS: INR 0.94 (0.77-1.02)
[2018-05-10 17:40] LABS: EGFR Non-African American 42.5 (>60)
[2018-05-10] MEDS ORDERED: Morphine VIAL* 4 MG/ML VIAL (1 ml vial) IV PRN (18:24)
[2018-05-10] MEDS ORDERED: Docusate CAP* 100 MG PO PRN (18:27)
[2018-05-10] MEDS ORDERED: Albuterol HFA INHALER* 8 gm MDI INH PRN (18:27)
[2018-05-10] MEDS: oxyCODONE/Acetamin 5/325 MG* TAB PO PRN (20:04)
--- NOTE | 2018-05-10 20:47 | HP ---
CC: Dr. Dinero * HISTORY AND PHYSICAL: DATE OF ADMISSION: 05/10/18 PRIMARY CARE PROVIDER: Dr. Dinero. CHIEF COMPLAINT: Status post fall and back pain. HISTORY OF PRESENT ILLNESS: Jessie Oliver is an 82-year-old who presented to the hospital after a mechanical fall. The patient stated that she was walking to her daughter's house to open it up for a person to come and repair something. She ducked underneath a thorny manriquez and then she had a step to take , and at that point after ducking underneath the manriquez taking a step, she got imbalanced and fell backwards on her back, suffering from L1 compression fracture. She came into the ED for evaluation, diagnosed with L1 compression fracture. Here, she was unable to ambulate due to severe pain and she is going to be placed on overnight observation. PAST MEDICAL HISTORY: 1. Anemia of chronic kidney disease. 2. Chronic kidney disease, stage 3. 3. History of monoclonal paraproteinemia. 4. History of impaired fasting glucose. 5. Gout. 6. Sciatica. 7. History of osteoarthritis. 8. Allergic rhinitis. 9. Hyperlipidemia. 10. Hypertension. MEDICATIONS: Include: 1. Colace 100 mg daily p.r.n. 2. Acetaminophen 500 to 1000 mg on a p.r.n. basis. 3. Systane eye drops, one drop both eyes t.i.d. p.r.n. 4. Vitamin B12, 500 mcg daily. 5. Hydrocodone and acetaminophen 5/325 mg half tablet to 1 tablet every 4 hours p.r.n. 6. [place]-3 fatty acid 1000 mg daily. 7. Clarinex 5 mg daily. 8. Aspirin 81 mg daily. 9. Calcium with vitamin D 1 tablet b.i.d. 10. Lisinopril 10 mg daily. 11. Lipitor 20 mg daily. 12. Atrovent nasal spray 0.03% one spray both nostrils daily. 13. Albuterol inhaler 2 puffs every 4 hours p.r.n. ALLERGIES: The patient is allergic to CELEXA, SULFA, SEA FOOD, SHELL FISH. CELEXA causes nausea, SULFA causes rash, SEA FOOD causes nausea. The patient had allergy to VISIPAQUE, which is the contrast for CT with rash and itching. FAMILY HISTORY: Father due to heart disease. Mother due to [place]. Mother had history of stroke. SOCIAL HISTORY: The patient denies any tobacco, alcohol, or drug use. She is retired and lives by herself. Her surrogate decision maker is her daughter, Connie, who lives four miles away. Her phone number is [phone]. REVIEW OF SYSTEMS: Please see history of present illness. The patient complains of severe lower back pain, denies focal weakness. She had been in her usual state of health before she fell. She denies losing consciousness. All the remaining 12 systems were reviewed with the patient and were otherwise negative. PHYSICAL EXAMINATION GENERAL: The patient is a very pleasant 82-year-old female, who is in no acute distress. Alert, awake, and oriented x3. VITAL SIGNS: Blood pressure of 105/68, heart rate of 69 and regular, respiratory rate 13, oxygen saturation 97% on room air, temperature of 97.2. HEENT: Head: Atraumatic, normocephalic. Eyes: Pupils are equal, reactive to light and accommodation. Oropharynx is clear. Mucosa moist. NECK: Supple. No JVD. No bruits bilaterally. RESPIRATORY: Clear to auscultation bilaterally. CARDIOVASCULAR: Regular rate and rhythm. No murmur. ABDOMEN: Soft and nontender. Bowel sounds are present in all 4 quadrants. EXTREMITIES: There is no edema. Pulses are +2 bilaterally. No clubbing or cyanosis. On evaluation of the patient's back, there are no bruises noted. There is no tenderness elicited by palpation of her vertebral column of the entire back. NEURO EVALUATION: Speech is clear. Cranial nerves II through XII are grossly intact. Motor strength is 5/5 bilaterally. SKIN: On evaluation of the skin, no ecchymotic areas or rashes noted. DIAGNOSTIC STUDIES/LAB DATA: Sodium of 140, potassium of 4.7, chloride 109, carbon dioxide 23, BUN 32, creatinine 1.21. Liver function test is unremarkable. Troponin of 0.03. CBC, white blood cell count of 8.8, hemoglobin of 12.2, hematocrit of 37, and platelet of 125, which is chronic. CT of the abdomen and pelvis, impression: "Again noted is an acute/subacute compression fracture of L1 without osseous retropulsion. There was right-sided hydronephrosis without appreciable ureteral stone. Atherosclerosis. Bilateral fat containing inguinal hernia. Small hiatal hernia." C-spine CT, impression: "Advanced osteoarthritic changes, no acute findings." Thoracic spine CT, impression: "Acute/subacute compression of L1 without osseous retropulsion." ASSESSMENT AND PLAN: 1. Status post mechanical fall and fracture of L1. The patient is neurologically intact. She is going to be placed on overnight observation for physical therapy, occupational therapy evaluation as well as pain control. 2. In regards to the patient's chronic kidney disease stage 3, her creatinine is at baseline. The patient had noted hydronephrosis, but otherwise asymptomatic with renal function that is at baseline. I believe this is an incidental finding. I will order an renal ultrasound to evaluate it further. 3. For DVT prophylaxis. The patient is going to placed on heparin subcutaneously. 4. The patient's code status is do not resuscitate and that will be carried throughout the patient's hospital stay. TIME SPENT: Approximately 70 minutes was spent on admission of this patient, more than half of that time was spent [id number] with the patient during the interview and physical exam. [id number]/[facility] #: [id number] SINTIA
[2018-05-10] MEDS: Atorvastatin* 20 MG TAB PO SCH (21:28)
[2018-05-10] MEDS: Lisinopril TAB* 10 MG PO SCH (21:28)
[2018-05-10] MEDS: Heparin VIAL(*) 5000 UNITS/ML VIAL (FIVE THOUSAND) SUBCUT SCH (21:28)
[2018-05-11 01:29] LABS: Urine Appearance Clear; Urine Blood Negative (Negative); Urine Color Straw; Urine Ketones Negative (Negative); Urine Protein Negative (Negative); Urine Specific Gravity 1.012 (1.010-1.030); Urine Urobilinogen Negative (Negative)
[2018-05-11] MEDS ORDERED: Morphine VIAL* 4 MG/ML VIAL (1 ml vial) IV PRN (05:23)
[2018-05-11] MEDS: Heparin VIAL(*) 5000 UNITS/ML VIAL (FIVE THOUSAND) SUBCUT SCH ×3 (05:51→20:20)
--- NOTE | 2018-05-11 10:33 | RAD ---
Indication: Suggestion of RIGHT hydronephrosis on May 10, 2018 CT. Comparison: May 10, 2018 CT Technique: RIGHT unilateral renal ultrasound. Report: 10.6 x 4.7 x 5.9 cm RIGHT kidney demonstrates mildly lobular cortical contour and normal cortical echogenicity. 3.1 x 2.8 x 1.6 cm parapelvic cyst at the lower pole favored over a dilated calyx. 2.5 cm simple appearing exophytic simple cyst at the lower pole. No conspicuous stones. Negative for hydronephrosis. IMPRESSION: #. Negative for RIGHT kidney hydronephrosis. #. 3.1 cm parapelvic cyst at the lower pole. #. 2.5 cm simple exophytic cyst at the lower pole cortex.
[2018-05-11] MEDS: Cyanocobalamin TAB* 500 MCG PO SCH (10:37)
[2018-05-11] MEDS: oxyCODONE/Acetamin 5/325 MG* TAB PO PRN ×3 (10:37→20:19)
[2018-05-11] MEDS: Aspirin EC TAB* 81 MG TAB.EC PO SCH (10:38)
--- NOTE | 2018-05-11 16:25 | PN ---
Subjective Date of Service: 05/11/18 Interval History: Pt still c/o lower back pain radiating to R hip Objective Active Medications: Acetaminophen (Tylenol Tab*) 650 mg PO Q4H PRN PRN Reason: FEVER/PAIN Albuterol (Ventolin Hfa Inhaler*) 2 puff INH Q4H PRN PRN Reason: SOB/WHEEZING Aspirin (Aspirin Ec Tab*) 81 mg PO DAILY [facility] Last Admin: 05/11/18 10:38 Dose: 81 mg Atorvastatin Calcium (Lipitor*) 20 mg PO BEDTIME [facility] Last Admin: 05/10/18 21:28 Dose: 20 mg Cyanocobalamin (Vitamin B12 Tab*) 500 mcg PO DAILY [facility] Last Admin: 05/11/18 10:37 Dose: 500 mcg Docusate Sodium (Colace Cap*) 100 mg PO DAILY PRN PRN Reason: CONSTIPATION Last Admin: 05/10/18 21:28 Dose: 100 mg Heparin Sodium (Porcine) (Heparin Vial(*)) 5,000 units SUBCUT Q8HR [facility] Last Admin: 05/11/18 15:09 Dose: 5,000 units Lisinopril (Prinivil Tab*) 10 mg PO BEDTIME [facility] Last Admin: 05/10/18 21:28 Dose: 10 mg Morphine Sulfate (Morphine Vial*) 2 mg IV Q4H PRN PRN Reason: PAIN Last Admin: 05/11/18 06:05 Dose: 2 mg Oxycodone/Acetaminophen (Percocet 5/325 Tab*) 1 tab PO Q4H PRN PRN Reason: Pain Last Admin: 05/11/18 15:15 Dose: 1 tab Vital Signs - 8 hr 05/11/18 05/11/18 05/11/18 10:21 10:37 15:15 Respiratory 16 16 16 Rate 05/11/18 15:23 Respiratory 18 Rate Oxygen Devices in Use Now: None Appearance: 82 yo F in nAD, AAOx3 Eyes: No Scleral Icterus, PERRLA Ears/Nose/Mouth/Throat: NL Teeth, Lips, Gums, Mucous Membranes Moist Neck: NL Appearance and Movements; NL JVP, Trachea Midline Respiratory: Symmetrical Chest Expansion and Respiratory Effort, Clear to Auscultation Cardiovascular: NL Sounds; No Murmurs; No JVD, RRR Abdominal: NL Sounds; No Tenderness; No Distention, - - no back tenderness to palpation Lymphatic: No Cervical Adenopathy Extremities: No Edema, No Clubbing, Cyanosis, - - b/l hip-good ROM Skin: No Rash or Ulcers, No Nodules or Sclerosis Neurological: Alert and Oriented x 3, NL Muscle Strength and Tone Result Diagrams: 05/10/18 17:08 05/10/18 17:08 Assess/Plan/Problems-Billing Assessment: 82 yo F s/p mechanical fall with L1 compression fx - Patient Problems (1) Compression fracture Comment: of L1 cont pain mangement and PT, still requires help with ambulation Awaiting R hip Xrays to r/o fx. (2) HYPERTENSION Comment: controlled with lisinopril (3) Renal cyst Comment: renal US confirms R renal cyst, no hydronephrosis as noted on CT (4) CKD (chronic kidney disease) stage 3, GFR 30-59 ml/min Comment: creat at baseline (5) DVT prophylaxis Comment: HSQ Status and Disposition: OBV changed to inpatient
[2018-05-11] MEDS ORDERED: Magnesium Hydroxide LIQ* 30 ML UDC PO ONE (16:31)
--- NOTE | 2018-05-11 16:33 | RAD ---
Indication: RIGHT hip pain post fall. Comparison: May 10, 2018 CT. Technique: AP pelvis and AP and frog-leg lateral views RIGHT hip. Report: The RIGHT hip is normally located. No proximal RIGHT femur or pelvic fracture or pelvic joint diastases. Mild osteophytic lipping at the bilateral femoral head neck junctions. Mild axial joint space narrowing of both hips. Unremarkable soft tissue contours. Peripheral vascular calcifications. Stool and gas distention of the colon. IMPRESSION: #. No radiographic evidence for RIGHT hip fracture. As x-rays may be negative with nondisplaced hip fracture if there is persistent clinical concern MRI or in setting of contraindication to MRI or limitation in emergent access to MRI CT would be suggested.
[2018-05-11] MEDS: Atorvastatin* 20 MG TAB PO SCH (20:20)
[2018-05-11] MEDS: Lisinopril TAB* 10 MG PO SCH (20:20)
[2018-05-11] MEDS: Docusate CAP* 100 MG PO SCH (20:22)
[2018-05-12] MEDS: oxyCODONE/Acetamin 5/325 MG* TAB PO PRN ×3 (01:18→18:04)
[2018-05-12] MEDS: Heparin VIAL(*) 5000 UNITS/ML VIAL (FIVE THOUSAND) SUBCUT SCH ×3 (05:54→21:12)
[2018-05-12] MEDS: Cyanocobalamin TAB* 500 MCG PO SCH (09:11)
[2018-05-12] MEDS: Aspirin EC TAB* 81 MG TAB.EC PO SCH (09:11)
[2018-05-12] MEDS: Docusate CAP* 100 MG PO SCH ×2 (09:12→21:10)
[2018-05-12] MEDS ORDERED: Magnesium CITRATE* 300 ML BTL PO ONE (10:02)
--- NOTE | 2018-05-12 11:14 | PN ---
Subjective Date of Service: 05/12/18 Interval History: Pt had a bad night. Was awoken several times by her neighbour. Has not had BM yet , but has lower abd cramping. the R hip still hurts. Pt agrees to STR Objective Active Medications: Acetaminophen (Tylenol Tab*) 650 mg PO Q4H PRN PRN Reason: FEVER/PAIN Albuterol (Ventolin Hfa Inhaler*) 2 puff INH Q4H PRN PRN Reason: SOB/WHEEZING Aspirin (Aspirin Ec Tab*) 81 mg PO DAILY [facility] Last Admin: 05/12/18 09:11 Dose: 81 mg Atorvastatin Calcium (Lipitor*) 20 mg PO BEDTIME [facility] Last Admin: 05/11/18 20:20 Dose: 20 mg Cyanocobalamin (Vitamin B12 Tab*) 500 mcg PO DAILY [facility] Last Admin: 05/12/18 09:11 Dose: 500 mcg Docusate Sodium (Colace Cap*) 100 mg PO BID [facility] Last Admin: 05/12/18 09:12 Dose: 100 mg Heparin Sodium (Porcine) (Heparin Vial(*)) 5,000 units SUBCUT Q8HR [facility] Last Admin: 05/12/18 05:54 Dose: 5,000 units Lisinopril (Prinivil Tab*) 10 mg PO BEDTIME [facility] Last Admin: 05/11/18 20:20 Dose: 10 mg Morphine Sulfate (Morphine Vial*) 2 mg IV Q4H PRN PRN Reason: PAIN Last Admin: 05/11/18 06:05 Dose: 2 mg Oxycodone/Acetaminophen (Percocet 5/325 Tab*) 1 tab PO Q4H PRN PRN Reason: Pain Last Admin: 05/12/18 09:11 Dose: 1 tab Vital Signs - 8 hr 05/12/18 05/12/18 05/12/18 03:11 04:27 07:10 Temperature 98.9 F 98.6 F Pulse Rate 71 70 Respiratory 16 16 16 Rate Blood Pressure 103/49 128/48 (mmHg) O2 Sat by Pulse 95 96 Oximetry 05/12/18 05/12/18 08:00 09:11 Temperature Pulse Rate Respiratory 18 18 Rate Blood Pressure (mmHg) O2 Sat by Pulse Oximetry Oxygen Devices in Use Now: None Appearance: 82 yo f in nAD, aAOx3 Eyes: No Scleral Icterus, PERRLA Ears/Nose/Mouth/Throat: NL Teeth, Lips, Gums, Mucous Membranes Moist Neck: NL Appearance and Movements; NL JVP, Trachea Midline Respiratory: Symmetrical Chest Expansion and Respiratory Effort, Clear to Auscultation Cardiovascular: NL Sounds; No Murmurs; No JVD Abdominal: - - distended, mildly tender in b/l lower quadrants, no rebound, no guarding BS+ Lymphatic: No Cervical Adenopathy Extremities: No Edema, No Clubbing, Cyanosis Skin: No Rash or Ulcers, No Nodules or Sclerosis Neurological: Alert and Oriented x 3, - - pain in R jhip on R leg rise, motor 5/ 5 b/l, speech clear Result Diagrams: 05/10/18 17:08 05/10/18 17:08 Assess/Plan/Problems-Billing Assessment: 82 yo F s/p mechanical fall with L1 compression fx - Patient Problems (1) Compression fracture Comment: of L1 cont pain mangement and PT, still requires help with ambulation R hip Xrays shows no fx (2) HYPERTENSION Comment: controlled with lisinopril (3) Renal cyst Comment: renal US confirms R renal cyst, no hydronephrosis as noted on CT (4) CKD (chronic kidney disease) stage 3, GFR 30-59 ml/min Comment: creat at baseline (5) Constipation Comment: laxatives and enema ordered (6) DVT prophylaxis Comment: HSQ Status and Disposition: inpatient
[2018-05-12] MEDS ORDERED: Sodium Phosphate ADULT ENEMA* 118 ml bottle PR ONE (11:15)
[2018-05-12] MEDS: oxyCODONE/Acetamin 5/325 MG* TAB PO SCH ×2 (13:24→21:09)
[2018-05-12] MEDS: Polyethylene Glycol 3350* 17 GM PACKET PO SCH (21:08)
[2018-05-12] MEDS: Atorvastatin* 20 MG TAB PO SCH (21:09)
[2018-05-12] MEDS: Lisinopril TAB* 10 MG PO SCH (21:10)
[2018-05-13] MEDS: oxyCODONE/Acetamin 5/325 MG* TAB PO PRN ×4 (02:58→17:00)
[2018-05-13] MEDS: Heparin VIAL(*) 5000 UNITS/ML VIAL (FIVE THOUSAND) SUBCUT SCH ×3 (05:11→20:57)
[2018-05-13] MEDS: Aspirin EC TAB* 81 MG TAB.EC PO SCH (07:30)
[2018-05-13] MEDS: Docusate CAP* 100 MG PO SCH ×2 (07:30→20:55)
[2018-05-13] MEDS: Polyethylene Glycol 3350* 17 GM PACKET PO SCH ×2 (07:30→20:56)
[2018-05-13] MEDS: Cyanocobalamin TAB* 500 MCG PO SCH (07:30)
[2018-05-13] MEDS ORDERED: Mineral Oil ENEMA* 1 BOTTLE PR ONE (08:53)
[2018-05-13] MEDS: oxyCODONE/Acetamin 5/325 MG* TAB PO SCH ×3 (09:51→20:55)
--- NOTE | 2018-05-13 10:42 | RAD ---
HISTORY: r/o ileus, no other history is provided COMPARISONS: CT dated May 10, 2018 VIEWS: Frontal and left lateral decubitus views of the abdomen. FINDINGS: BOWEL: There is a nonspecific bowel gas pattern, with nondilated small bowel gas noted. There is a large amount of stool within the colon. CALCULI: There are no abnormal calculi. BONES AND SOFT TISSUES: Degenerative changes are noted. OTHER FINDINGS: The lung bases are clear. There is no subphrenic gas. IMPRESSION: NONSPECIFIC BOWEL GAS PATTERN. LARGE AMOUNT OF STOOL THROUGHOUT THE COLON.
--- NOTE | 2018-05-13 13:50 | PN ---
Subjective Date of Service: 05/13/18 Interval History: Pt is very preoccupied that she had not had a BM x 3 days, denies abd pain. Still c/o lumbar back pain radiating to R hip Objective Active Medications: Acetaminophen (Tylenol Tab*) 650 mg PO Q4H PRN PRN Reason: FEVER/PAIN Albuterol (Ventolin Hfa Inhaler*) 2 puff INH Q4H PRN PRN Reason: SOB/WHEEZING Aspirin (Aspirin Ec Tab*) 81 mg PO DAILY [facility] Last Admin: 05/13/18 07:30 Dose: 81 mg Atorvastatin Calcium (Lipitor*) 20 mg PO BEDTIME [facility] Last Admin: 05/12/18 21:09 Dose: 20 mg Cyanocobalamin (Vitamin B12 Tab*) 500 mcg PO DAILY [facility] Last Admin: 05/13/18 07:30 Dose: 500 mcg Docusate Sodium (Colace Cap*) 100 mg PO BID [facility] Last Admin: 05/13/18 07:30 Dose: 100 mg Heparin Sodium (Porcine) (Heparin Vial(*)) 5,000 units SUBCUT Q8HR [facility] Last Admin: 05/13/18 12:55 Dose: 5,000 units Lisinopril (Prinivil Tab*) 10 mg PO BEDTIME [facility] Last Admin: 05/12/18 21:10 Dose: 10 mg Morphine Sulfate (Morphine Vial*) 2 mg IV Q4H PRN PRN Reason: PAIN Last Admin: 05/11/18 06:05 Dose: 2 mg Ondansetron HCl (Zofran Odt Tab*) 4 mg SL Q6H PRN PRN Reason: NAUSEA/VOMITING Oxycodone/Acetaminophen (Percocet 5/325 Tab*) 1 tab PO Q4H PRN PRN Reason: Pain Last Admin: 05/13/18 12:54 Dose: 1 tab Oxycodone/Acetaminophen (Percocet 5/325 Tab*) 1 tab PO TID [facility] Last Admin: 05/13/18 09:51 Dose: 1 tab Polyethylene Glycol/Electrolytes (Miralax*) 17 gm PO 0800,2100 [facility] Last Admin: 05/13/18 07:30 Dose: 17 gm Vital Signs - 8 hr 05/13/18 05/13/18 05/13/18 07:30 07:43 09:51 Temperature Pulse Rate 75 Respiratory 18 18 16 Rate Blood Pressure 123/55 (mmHg) O2 Sat by Pulse 100 Oximetry 05/13/18 05/13/18 11:13 12:54 Temperature 97.9 F Pulse Rate 72 Respiratory 18 18 Rate Blood Pressure 122/42 (mmHg) O2 Sat by Pulse 98 Oximetry Oxygen Devices in Use Now: None Appearance: 82 yo F in nAD, aAOx3 Eyes: No Scleral Icterus, PERRLA Ears/Nose/Mouth/Throat: NL Teeth, Lips, Gums, Mucous Membranes Moist Neck: NL Appearance and Movements; NL JVP, Trachea Midline Respiratory: Symmetrical Chest Expansion and Respiratory Effort, Clear to Auscultation Cardiovascular: NL Sounds; No Murmurs; No JVD, RRR Abdominal: NL Sounds; No Tenderness; No Distention, No Hepatosplenomegaly, - - back-tenderness on palpation of lumbar muscles on R Lymphatic: No Cervical Adenopathy Extremities: No Edema, No Clubbing, Cyanosis Skin: No Rash or Ulcers, No Nodules or Sclerosis Neurological: Alert and Oriented x 3, NL Muscle Strength and Tone Result Diagrams: 05/10/18 17:08 05/10/18 17:08 Assess/Plan/Problems-Billing Assessment: 82 yo F s/p mechanical fall with L1 compression fx - Patient Problems (1) Compression fracture Comment: of L1 cont pain mangement and PT, still requires help with ambulation R hip Xrays shows no fx (2) HYPERTENSION Comment: controlled with lisinopril (3) Renal cyst Comment: renal US confirms R renal cyst, no hydronephrosis as noted on CT (4) CKD (chronic kidney disease) stage 3, GFR 30-59 ml/min Comment: creat at baseline (5) Constipation Comment: laxatives and enema ordered (6) DVT prophylaxis Comment: HSQ Status and Disposition: inpatient, likely will need STR. PT ongoing
[2018-05-13] MEDS: Lisinopril TAB* 10 MG PO SCH (20:56)
[2018-05-13] MEDS: Atorvastatin* 20 MG TAB PO SCH (21:00)
[2018-05-14] MEDS: oxyCODONE/Acetamin 5/325 MG* TAB PO PRN ×3 (02:23→17:52)
[2018-05-14] MEDS: Ondansetron ODT TAB* 4 MG SL PRN (03:31)
[2018-05-14] MEDS: Heparin VIAL(*) 5000 UNITS/ML VIAL (FIVE THOUSAND) SUBCUT SCH ×3 (05:09→21:46)
[2018-05-14 06:57] LABS: Hematocrit 33 % (35-47); Hemoglobin 11.4 g/dl (12.0-16.0); Mean Corpuscular HGB Conc 34 g/dl (31-36); Mean Corpuscular Hemoglobin 32 pg (27-31); Mean Corpuscular Volume 94 fL (80-97); Mean Platelet Volume 8.4 um3 (7.4-10.4); Platelet Count 130 10^3/ul (150-450); Red Blood Count 3.57 10^6/ul (4.00-5.40); Red Cell Distribution Width 13 % (10.5-15)
[2018-05-14 07:12] LABS: EGFR Non-African American 40.6 (>60)
[2018-05-14] MEDS: Aspirin EC TAB* 81 MG TAB.EC PO SCH (08:55)
[2018-05-14] MEDS: Polyethylene Glycol 3350* 17 GM PACKET PO SCH ×2 (08:55→21:47)
[2018-05-14] MEDS: Docusate CAP* 100 MG PO SCH ×2 (08:55→21:46)
[2018-05-14] MEDS: oxyCODONE/Acetamin 5/325 MG* TAB PO SCH ×3 (08:55→21:46)
[2018-05-14] MEDS: Cyanocobalamin TAB* 500 MCG PO SCH (08:55)
[2018-05-14] MEDS ORDERED: Magnesium Hydroxide LIQ* 30 ML UDC PO ONE (09:50)
[2018-05-14] MEDS: NS 0.9% 1000 ML* 1,000 ML IV SCH ×2 (09:59→23:51)
--- NOTE | 2018-05-14 11:12 | PN ---
Subjective Date of Service: 05/14/18 Interval History: Pt still preoccupied with constipation. no BM yet, denies abd pain Walked with PT today. Stated that ice packs are best for her back pain radiating to R posterior leg. Feels that she will be unable to manage at home and requested STR Objective Active Medications: Acetaminophen (Tylenol Tab*) 650 mg PO Q4H PRN PRN Reason: FEVER/PAIN Albuterol (Ventolin Hfa Inhaler*) 2 puff INH Q4H PRN PRN Reason: SOB/WHEEZING Aspirin (Aspirin Ec Tab*) 81 mg PO DAILY [facility] Last Admin: 05/14/18 08:55 Dose: 81 mg Atorvastatin Calcium (Lipitor*) 20 mg PO BEDTIME [facility] Last Admin: 05/13/18 21:00 Dose: 20 mg Cyanocobalamin (Vitamin B12 Tab*) 500 mcg PO DAILY [facility] Last Admin: 05/14/18 08:55 Dose: 500 mcg Docusate Sodium (Colace Cap*) 100 mg PO BID [facility] Last Admin: 05/14/18 08:55 Dose: 100 mg Heparin Sodium (Porcine) (Heparin Vial(*)) 5,000 units SUBCUT Q8HR [facility] Last Admin: 05/14/18 05:09 Dose: 5,000 units Sodium Chloride (Ns 0.9% 1000 Ml*) 1,000 mls @ 75 mls/hr IV PER RATE [facility] Last Admin: 05/14/18 09:59 Dose: 75 mls/hr Lisinopril (Prinivil Tab*) 10 mg PO BEDTIME [facility] Last Admin: 05/13/18 20:56 Dose: 10 mg Morphine Sulfate (Morphine Vial*) 2 mg IV Q4H PRN PRN Reason: PAIN Last Admin: 05/11/18 06:05 Dose: 2 mg Ondansetron HCl (Zofran Odt Tab*) 4 mg SL Q6H PRN PRN Reason: NAUSEA/VOMITING Last Admin: 05/14/18 03:31 Dose: 4 mg Oxycodone/Acetaminophen (Percocet 5/325 Tab*) 1 tab PO Q4H PRN PRN Reason: Pain Last Admin: 05/14/18 06:12 Dose: 1 tab Oxycodone/Acetaminophen (Percocet 5/325 Tab*) 1 tab PO TID [facility] Last Admin: 05/14/18 08:55 Dose: 1 tab Polyethylene Glycol/Electrolytes (Miralax*) 17 gm PO 0800,2100 [facility] Last Admin: 05/14/18 08:55 Dose: 17 gm Vital Signs - 8 hr 05/14/18 05/14/18 05/14/18 03:16 04:49 06:12 Temperature 98.1 F Pulse Rate 78 Respiratory 20 18 18 Rate Blood Pressure 139/97 (mmHg) O2 Sat by Pulse 100 Oximetry 05/14/18 05/14/18 05/14/18 07:21 08:55 08:58 Temperature 98.4 F Pulse Rate 74 Respiratory 18 16 16 Rate Blood Pressure 125/47 (mmHg) O2 Sat by Pulse 96 Oximetry Oxygen Devices in Use Now: None Appearance: 82 yo F in NAD, AAOx3 Eyes: No Scleral Icterus, PERRLA Ears/Nose/Mouth/Throat: NL Teeth, Lips, Gums, Mucous Membranes Moist Neck: NL Appearance and Movements; NL JVP, Trachea Midline Respiratory: Symmetrical Chest Expansion and Respiratory Effort, Clear to Auscultation Cardiovascular: NL Sounds; No Murmurs; No JVD, RRR Abdominal: NL Sounds; No Tenderness; No Distention, - - back-no tenderness on palpation Lymphatic: No Cervical Adenopathy Extremities: No Clubbing, Cyanosis, - - trace pedal edema b/l Skin: No Rash or Ulcers, No Nodules or Sclerosis Neurological: Alert and Oriented x 3, NL Muscle Strength and Tone Result Diagrams: 05/14/18 06:41 05/14/18 06:41 Assess/Plan/Problems-Billing Assessment: 82 yo F s/p mechanical fall with L1 compression fx - Patient Problems (1) Compression fracture Comment: of L1 cont pain mangement and PT, still requires help with ambulation R hip Xrays shows no fx will need STR (2) HYPERTENSION Comment: controlled with lisinopril (3) Renal cyst Comment: renal US confirms R renal cyst, no hydronephrosis as noted on CT (4) CKD (chronic kidney disease) stage 3, GFR 30-59 ml/min Comment: creat at baseline (5) Constipation Comment: laxatives and enema ordered. Still no BM. Abd XRays shows no ileus on 05/13/18 (6) DVT prophylaxis Comment: HSQ Status and Disposition: inpatient. will need to go to STR, but now constipated and STR will refuse to admit pt with no recent BM documented
[2018-05-14] MEDS: Atorvastatin* 20 MG TAB PO SCH (21:46)
[2018-05-14] MEDS: Lisinopril TAB* 10 MG PO SCH (21:46)
[2018-05-15] MEDS: oxyCODONE/Acetamin 5/325 MG* TAB PO PRN ×5 (02:37→22:14)
[2018-05-15] MEDS: Heparin VIAL(*) 5000 UNITS/ML VIAL (FIVE THOUSAND) SUBCUT SCH ×3 (05:21→21:04)
[2018-05-15] MEDS ORDERED: Bisacodyl SUPP* 10 MG SUPP PR ONE (07:43)
--- NOTE | 2018-05-15 07:58 | PN ---
Subjective Date of Service: 05/15/18 Interval History: Pt is feeling poorly. She still has not had a BM. She c/o both back and abdominal pain. She states she is passing gas and generally after she passes gas she has less abdominal pain. She has been eating without difficulty. She has been trying to walk as much as she can. Objective Active Medications: Acetaminophen (Tylenol Tab*) 650 mg PO Q4H PRN PRN Reason: FEVER/PAIN Albuterol (Ventolin Hfa Inhaler*) 2 puff INH Q4H PRN PRN Reason: SOB/WHEEZING Aspirin (Aspirin Ec Tab*) 81 mg PO DAILY [facility] Last Admin: 05/14/18 08:55 Dose: 81 mg Atorvastatin Calcium (Lipitor*) 20 mg PO BEDTIME [facility] Last Admin: 05/14/18 21:46 Dose: 20 mg Cyanocobalamin (Vitamin B12 Tab*) 500 mcg PO DAILY [facility] Last Admin: 05/14/18 08:55 Dose: 500 mcg Docusate Sodium (Colace Cap*) 100 mg PO BID [facility] Last Admin: 05/14/18 21:46 Dose: 100 mg Heparin Sodium (Porcine) (Heparin Vial(*)) 5,000 units SUBCUT Q8HR [facility] Last Admin: 05/15/18 05:21 Dose: 5,000 units Lisinopril (Prinivil Tab*) 10 mg PO BEDTIME [facility] Last Admin: 05/14/18 21:46 Dose: 10 mg Magnesium Hydroxide (Milk Of Magnesia Liq*) 30 ml PO Q2H PRN PRN Reason: CONSTIPATION Ondansetron HCl (Zofran Odt Tab*) 4 mg SL Q6H PRN PRN Reason: NAUSEA/VOMITING Last Admin: 05/14/18 03:31 Dose: 4 mg Oxycodone/Acetaminophen (Percocet 5/325 Tab*) 1 tab PO Q4H PRN PRN Reason: Pain Last Admin: 05/15/18 06:27 Dose: 1 tab Oxycodone/Acetaminophen (Percocet 5/325 Tab*) 1 tab PO TID [facility] Last Admin: 05/14/18 21:46 Dose: 1 tab Polyethylene Glycol/Electrolytes (Miralax*) 17 gm PO 0800,2100 [facility] Last Admin: 05/14/18 21:47 Dose: 17 gm Vital Signs - 8 hr 0705/15/18 05/15/18 00:34 02:16 02:37 Temperature 98.1 F Pulse Rate 73 Respiratory 18 16 18 Rate Blood Pressure 128/52 (mmHg) O2 Sat by Pulse 93 Oximetry 05/15/18 05/15/18 05/15/18 05:20 06:27 07:17 Temperature 98.1 F Pulse Rate 68 Respiratory 18 18 16 Rate Blood Pressure 105/49 (mmHg) O2 Sat by Pulse 95 Oximetry Oxygen Devices in Use Now: None Appearance: Elderly female sitting up in bed, NAD Eyes: No Scleral Icterus Ears/Nose/Mouth/Throat: Mucous Membranes Moist Respiratory: Symmetrical Chest Expansion and Respiratory Effort, Clear to Auscultation - anteriorly Cardiovascular: NL Sounds; No Murmurs; No JVD, RRR, No Edema Abdominal: - - BS hypoactive, soft, moderately distended, tympanic to percussion , tender to palpation diffusely Extremities: No Clubbing, Cyanosis Skin: No Nodules or Sclerosis Neurological: Alert and Oriented x 3 Result Diagrams: 05/14/18 06:41 05/15/18 06:29 Assess/Plan/Problems-Billing Ms Oliver is an 82 yo F who has a h/o HTN, HLD, stage III CKD and anemia of CKD who is s/p mechanical fall with L1 compression fx. - Patient Problems (1) Compression fracture Current Visit: Yes Status: Acute Code(s): LWU1380 - SNOMED Code(s): 406555076 Comment: The patient was found to have an acute/subacute mild L1 compression fracture. She indicates she is in a tremendous amount of pain still. She has been taking percocet TID standing and 3-4 additional doses of percocet daily. She believes she will need STR as she is still requiring some assistance with ambulation. (2) Constipation Current Visit: Yes Status: Acute Code(s): K59.00 - CONSTIPATION, UNSPECIFIED SNOMED Code(s): 14177320 Comment: The patient states her last BM was last . XR shows a copious amount of stool in the colon. Will give MOM q2hr and dulcolax suppository. I suspect her severe constipation is secondary to copious narcotic use and decreased ambulation. (3) HYPERTENSION Current Visit: Yes Status: Active Comment: BP is under control with lisinopril. (4) CKD (chronic kidney disease) stage 3, GFR 30-59 ml/min Current Visit: Yes Status: Acute Code(s): N18.3 - CHRONIC KIDNEY DISEASE, STAGE 3 (MODERATE) SNOMED Code(s): 596949193 Comment: Creatinine is stable at baseline. Monitor intermittently. (5) Hyperlipidemia Current Visit: Yes Status: Active Code(s): E78.5 - HYPERLIPIDEMIA, UNSPECIFIED SNOMED Code(s): 05055715 Comment: Continue lipitor. (6) DVT prophylaxis Current Visit: Yes Status: Acute Code(s): ZLZ0813 - SNOMED Code(s): 112018532 Comment: SQ heparin (7) DNR (do not resuscitate) Current Visit: Yes Status: Acute Status and Disposition: needs to have BM prior to STR d/c
[2018-05-15] MEDS: Polyethylene Glycol 3350* 17 GM PACKET PO SCH ×2 (09:03→21:15)
[2018-05-15] MEDS: Cyanocobalamin TAB* 500 MCG PO SCH (09:07)
[2018-05-15] MEDS: Aspirin EC TAB* 81 MG TAB.EC PO SCH (09:07)
[2018-05-15] MEDS: Docusate CAP* 100 MG PO SCH ×2 (09:07→21:16)
[2018-05-15] MEDS: Magnesium Hydroxide LIQ* 30 ML UDC PO PRN ×3 (09:09→16:36)
--- NOTE | 2018-05-15 09:44 | RAD ---
HISTORY: r/o obstruction COMPARISONS: May 13, 2018 VIEWS: Frontal views of the abdomen. FINDINGS: BOWEL: There is a nonobstructive bowel gas pattern. There is a large amount of stool within the colon. CALCULI: There are no abnormal calculi. BONES AND SOFT TISSUES: Degenerative changes are noted of the spine OTHER FINDINGS: The lung bases are clear. There is no subphrenic gas. IMPRESSION: NONOBSTRUCTIVE BOWEL GAS PATTERN. LARGE AMOUNT OF STOOL THROUGHOUT THE COLON.
[2018-05-15] MEDS: oxyCODONE/Acetamin 5/325 MG* TAB PO SCH ×4 (10:50→21:15)
[2018-05-15] MEDS: Lisinopril TAB* 10 MG PO SCH (21:04)
[2018-05-15] MEDS: Atorvastatin* 20 MG TAB PO SCH (21:04)
[2018-05-16] MEDS: oxyCODONE/Acetamin 5/325 MG* TAB PO PRN (02:23)
[2018-05-16] MEDS ORDERED: Baclofen TAB* 10 MG PO ONE (03:15)
[2018-05-16] MEDS: Ondansetron ODT TAB* 4 MG SL PRN ×3 (03:23→19:31)
[2018-05-16] MEDS: Heparin VIAL(*) 5000 UNITS/ML VIAL (FIVE THOUSAND) SUBCUT SCH ×3 (05:53→23:00)
[2018-05-16] MEDS: oxyCODONE/Acetamin 5/325 MG* TAB PO SCH ×3 (08:31→22:56)
[2018-05-16] MEDS: Cyanocobalamin TAB* 500 MCG PO SCH (08:32)
[2018-05-16] MEDS: Docusate CAP* 100 MG PO SCH ×2 (08:32→19:28)
[2018-05-16] MEDS: Aspirin EC TAB* 81 MG TAB.EC PO SCH (08:32)
[2018-05-16] MEDS: Polyethylene Glycol 3350* 17 GM PACKET PO SCH ×2 (08:32→19:39)
--- NOTE | 2018-05-16 09:55 | PN ---
Subjective Date of Service: 05/16/18 Interval History: Pt c/o markedly worsened R leg pain today. She states overnight the pain became very severe. It radiates down her R thigh. She states it is very different from what she was experiencing. She states she had 3 BMs yesterday and 1 this AM. She is very drowsy and somewhat difficult to talk to. Objective Active Medications: Acetaminophen (Tylenol Tab*) 650 mg PO Q4H PRN PRN Reason: FEVER/PAIN Albuterol (Ventolin Hfa Inhaler*) 2 puff INH Q4H PRN PRN Reason: SOB/WHEEZING Aspirin (Aspirin Ec Tab*) 81 mg PO DAILY [facility] Last Admin: 05/16/18 08:32 Dose: 81 mg Atorvastatin Calcium (Lipitor*) 20 mg PO BEDTIME [facility] Last Admin: 05/15/18 21:04 Dose: 20 mg Cyanocobalamin (Vitamin B12 Tab*) 500 mcg PO DAILY [facility] Last Admin: 05/16/18 08:32 Dose: 500 mcg Docusate Sodium (Colace Cap*) 100 mg PO BID [facility] Last Admin: 05/16/18 08:32 Dose: 100 mg Gabapentin (Neurontin Cap(*)) 100 mg PO TID [facility] Heparin Sodium (Porcine) (Heparin Vial(*)) 5,000 units SUBCUT Q8HR [facility] Last Admin: 05/16/18 05:53 Dose: 5,000 units Lisinopril (Prinivil Tab*) 10 mg PO BEDTIME [facility] Last Admin: 05/15/18 21:04 Dose: 10 mg Magnesium Hydroxide (Milk Of Magnesia Liq*) 30 ml PO Q2H PRN PRN Reason: CONSTIPATION Last Admin: 05/15/18 16:36 Dose: 30 ml Ondansetron HCl (Zofran Odt Tab*) 4 mg SL Q6H PRN PRN Reason: NAUSEA/VOMITING Last Admin: 05/16/18 03:23 Dose: 4 mg Oxycodone/Acetaminophen (Percocet 5/325 Tab*) 1 tab PO Q4H PRN PRN Reason: Pain Last Admin: 05/16/18 02:23 Dose: 1 tab Oxycodone/Acetaminophen (Percocet 5/325 Tab*) 1 tab PO TID [facility] Last Admin: 05/16/18 08:31 Dose: 1 tab Polyethylene Glycol/Electrolytes (Miralax*) 17 gm PO 0800,2100 [facility] Last Admin: 05/16/18 08:32 Dose: 17 gm Vital Signs - 8 hr 05/16/18 05/16/18 05/16/18 02:23 04:06 08:07 Temperature 98.3 F Pulse Rate 91 Respiratory 18 20 20 Rate Blood Pressure 186/79 (mmHg) O2 Sat by Pulse 97 Oximetry 05/16/18 05/16/18 08:31 08:46 Temperature Pulse Rate Respiratory 18 Rate Blood Pressure 170/88 (mmHg) O2 Sat by Pulse Oximetry Oxygen Devices in Use Now: None Appearance: Eldelry female sitting up in a chair, head resting on towel on the bookshelf, drowsy but in NAD Eyes: No Scleral Icterus Ears/Nose/Mouth/Throat: Mucous Membranes Moist Respiratory: Symmetrical Chest Expansion and Respiratory Effort, Clear to Auscultation - anteriorly Cardiovascular: NL Sounds; No Murmurs; No JVD, RRR, No Edema Abdominal: NL Sounds; No Tenderness; No Distention Extremities: No Clubbing, Cyanosis Skin: No Nodules or Sclerosis Neurological: - - + pain with movement of R LE Result Diagrams: 05/17/18 06:29 05/16/18 14:35 Assess/Plan/Problems-Billing Ms Oliver is an 82 yo F who has a h/o HTN, HLD, stage III CKD and anemia of CKD who is s/p mechanical fall with L1 compression fx. - Patient Problems (1) Compression fracture Current Visit: Yes Status: Acute Code(s): HUM4881 - SNOMED Code(s): 530781425 Comment: Increased pain today with ? radicular symptoms. Given new quality of pain and increased severity will get MRI of the lumbar spine. Start gabapentin for possible neuropathic pain. Monitor mental status as she is drowsy after having baclofen around 0300. (2) Constipation Current Visit: Yes Status: Acute Code(s): K59.00 - CONSTIPATION, UNSPECIFIED SNOMED Code(s): 79787566 Comment: Pt had BM 05/15 evening and AM 05/16. Monitor for continued obstipation. (3) HYPERTENSION Current Visit: Yes Status: Active Comment: BP is under control with lisinopril. (4) CKD (chronic kidney disease) stage 3, GFR 30-59 ml/min Current Visit: Yes Status: Acute Code(s): N18.3 - CHRONIC KIDNEY DISEASE, STAGE 3 (MODERATE) SNOMED Code(s): 481169216 Comment: Creatinine is stable at baseline. Monitor intermittently. (5) Hyperlipidemia Current Visit: Yes Status: Active Code(s): E78.5 - HYPERLIPIDEMIA, UNSPECIFIED SNOMED Code(s): 26865699 Comment: Continue lipitor. (6) DVT prophylaxis Current Visit: Yes Status: Acute Code(s): TBC4282 - SNOMED Code(s): 592919015 Comment: SQ heparin (7) DNR (do not resuscitate) Current Visit: Yes Status: Acute Status and Disposition: needs to have BM prior to STR d/c
[2018-05-16] MEDS: Gabapentin CAP(*) 100 MG PO SCH ×3 (10:33→19:29)
[2018-05-16 14:42] LABS: Hematocrit 30 % (35-47); Hemoglobin 10.5 g/dl (12.0-16.0); Mean Corpuscular HGB Conc 35 g/dl (31-36); Mean Corpuscular Hemoglobin 33 pg (27-31); Mean Corpuscular Volume 93 fL (80-97); Mean Platelet Volume 8.1 um3 (7.4-10.4); Platelet Count 173 10^3/ul (150-450); Red Blood Count 3.19 10^6/ul (4.00-5.40); Red Cell Distribution Width 13 % (10.5-15); White Blood Count 7.2 10^3/ul (3.5-10.8)
[2018-05-16 14:57] LABS: EGFR Non-African American 44.2 (>60)
--- NOTE | 2018-05-16 16:07 | RAD ---
HISTORY: L1 compression fx, severe R hip,leg pain COMPARISONS: CT dated May 10, 2018 TECHNIQUE: The following sequences were obtained of the lumbar spine: Sagittal and axial T1- and T2-weighted images, coronal T2-weighted images, and sagittal STIR images. FINDINGS: SPINAL CORD, CONUS, AND CAUDA EQUINA: The visualized spinal cord, conus, and cauda equina are normal in caliber, position, and signal intensity. ALIGNMENT: The alignment is normal. VERTEBRAL BODIES: There is multilevel anterolateral marginal osteophyte formation. There is mild loss of vertebral body height at L1 with fluid tracking along the fracture parallel to the superior endplate. There is minimal osseous retropulsion. There are Modic type I reactive endplate changes at L3-L4 with diffuse Modic type II changes JOINTS: There is facet osteoarthritis along the lower lumbar spine. MUSCULATURE: As described below, there is a fluid collection within the right psoas muscle. There is moderate fatty infiltration of the multifidus and erector spinae muscles. INTERVERTEBRAL DISCS: There is diffuse loss of intervertebral disc height and T2 signal throughout the spine. AXIAL IMAGES: T12-L1: There is bilateral facet hypertrophy. There is no significant neuroforaminal narrowing or central canal stenosis. L1-L2: There is bilateral facet hypertrophy. There is no significant neural foraminal narrowing or central canal stenosis. L2-L3: There is a broad-based disc bulge at bilateral facet hypertrophy. There is mild bilateral neuroforaminal narrowing. There is mild narrowing of the central canal. L3-L4: There is a broad-based disc bulge with ligamentous and facet hypertrophy. There is bilateral facet hypertrophy. There is severe left and mild right neural foraminal narrowing. There is moderate narrowing of the central canal. L4-L5: There is broad based disc bulge. There is bilateral facet hypertrophy. There is marginal osteophyte formation at the neural foramina bilaterally. There is moderate bilateral neuroforaminal narrowing. There is mild narrowing of central canal. L5-S1: There is a broad-based disc bulge with ligamentous and facet hypertrophy. There is partial effacement of left lateral recess. There is no significant neural foraminal narrowing. SOFT TISSUES: There has been interval development of a fluid collection within the right psoas muscle with a fluid-fluid level measuring approximately 5.9 x 4.3 x 16 cm in size. OTHER: None. IMPRESSION: 1. AGAIN NOTED IS A COMPRESSION FRACTURE OF L1 WITH MINIMAL OSSEOUS RETROPULSION. 2. THERE HAS BEEN INTERVAL DEVELOPMENT OF A LARGE FLUID COLLECTION WITHIN THE RIGHT PSOAS MUSCLE. THE IMAGING FEATURES ARE SUGGESTIVE OF AN INTRAMUSCULAR HEMATOMA. 3. DEGENERATIVE DISC DISEASE AND OSTEOARTHRITIS. 4. THERE IS MULTILEVEL NEUROFORAMINAL NARROWING DESCRIBED ABOVE. 5. THERE IS MODERATE NARROWING OF THE CENTRAL CANAL AT L3-L4 WITH MILD NARROWING AT L2-L3 AND L4-L5.
[2018-05-16] MEDS: Acetaminophen TAB* 325 MG PO PRN (19:28)
[2018-05-16] MEDS: Lisinopril TAB* 10 MG PO SCH (19:28)
[2018-05-16] MEDS: Atorvastatin* 20 MG TAB PO SCH (19:28)
[2018-05-16] MEDS ORDERED: Naloxone* 0.4 MG/ML 1 ML VIAL ONE (21:06)
--- NOTE | 2018-05-16 21:11 | PN ---
Progress Note - Progress Note Date of Service: 05/16/18 Note: CAT response called at 2049 Upon arrival, nursing notified that Mrs Oliver was being assisted to the restroom by an aide when she became generally weak requiring controlled assist to the floor. There was no head impact and she was alert throughout. At this time, she is asleep & snoring, rouses easily with light sternal rub, answers questions slowly, and rapidly falls back to sleep requiring repetitive stimulus to participate in exam. She denies pain, chest pain, abdominal pain, SOB, nausea , sweating, palpitations, focal W/N/T, or other issues. She moves all 4 extremities, face symmetrically. Lungs are CTAB, CV RRR, abdomen SNTND, extremities cool & dry, integument pale. Vitals BP 125/56, RR 12, HR 85, & saO2 100% on room air. Patient had no response to 0.2 IV narcan, but became substantially more alert after a 2nd dose of 0.4 IV narcan. HGB: 8.5 down from 10.5 earlier today ABG: pH 7.43, pCO2 32, pO2 73, HCO3 22.9 on RA glucose: 290 lactic acid: 5.0 troponin: 0.4 BNP 117 ECG: NSR rhythm rate 90, mild ST depression V4-6/II CT brain WO, personally reviewed: IMPRESSION: 1. No intracranial bleed, suspicious mass, or mass effect. Ventricles appear unremarkable. 2. No sinus disease. assessment: plan narcotic excess : D/C narcotic pain meds progressive anemia : known R psoas hematoma : add telemetry : stool for occult blood : type & screen : trend mildly abnormal ECG of uncertain significance : add telemetry : recheck troponin in AM lactic acidosis : 1L IVF bolus : trend lactate 0100 reassessment with ICU charge reveals Mrs Oliver remains somnolent, but more easily roused than earlier. No new complaints or issues. recheck HGB 8.2, continue to trend recheck lactate 3.6, continue to trend Critical care time: 35minutes with 100% spent at patient's side.
[2018-05-16] MEDS ORDERED: Naloxone* 0.4 MG/ML 1 ML VIAL IV PUSH ONE (21:59)
[2018-05-16] MEDS ORDERED: NS 0.9% 1000 ML* 1,000 ML IV SCH (22:00)
[2018-05-16 22:52] LABS: Hematocrit 24 % (35-47); Hemoglobin 8.5 g/dl (12.0-16.0)
[2018-05-17 02:25] LABS: Hematocrit 24 % (35-47); Hemoglobin 8.2 g/dl (12.0-16.0)
[2018-05-17 06:39] LABS: ABS Basophils 0 10^3/ul (0-0.2); ABS Eosinophils 0 10^3/ul (0-0.6); ABS Lymphocytes 0.9 10^3/ul (1.0-4.8); ABS Monocytes 0.7 10^3/ul (0-0.8); ABS Nucleated RBC 0 10^3/ul; Eosinophil % 0 % (0-6); Hematocrit 22 % (35-47); Hemoglobin 7.6 g/dl (12.0-16.0); Lymphocyte % 8.7 % (25-47); Mean Corpuscular HGB Conc 35 g/dl (31-36); Mean Corpuscular Hemoglobin 32 pg (27-31); Mean Corpuscular Volume 92 fL (80-97); Mean Platelet Volume 8.6 um3 (7.4-10.4); Nucleated Red Blood Cells % 0; Platelet Count 161 10^3/ul (150-450); Red Blood Count 2.35 10^6/ul (4.00-5.40); Red Cell Distribution Width 13 % (10.5-15); White Blood Count 10.7 10^3/ul (3.5-10.8)
[2018-05-17] MEDS: Heparin VIAL(*) 5000 UNITS/ML VIAL (FIVE THOUSAND) SUBCUT SCH (06:54)
--- NOTE | 2018-05-17 07:20 | PN ---
Subjective Date of Service: 05/17/18 Interval History: Events from overnight discussed with overnight provider (CAT call for LOC and decreased responsiveness, drop in H/H). Pt is feeling a little better today than yesterday in terms of pain despite having received narcan overnight. She states she is frustrated that the psoas hematoma was not found sooner. I explained to her that yesterday when I saw her we discussed her new symptoms and got the MRI as soon as we could as what she described sounded like neuropathic pain. She then states she understands the process. Objective Active Medications: Acetaminophen (Tylenol Tab*) 650 mg PO Q4H PRN PRN Reason: FEVER/PAIN Last Admin: 05/16/18 19:28 Dose: 650 mg Albuterol (Ventolin Hfa Inhaler*) 2 puff INH Q4H PRN PRN Reason: SOB/WHEEZING Atorvastatin Calcium (Lipitor*) 20 mg PO BEDTIME [facility] Last Admin: 05/16/18 19:28 Dose: 20 mg Cyanocobalamin (Vitamin B12 Tab*) 500 mcg PO DAILY [facility] Last Admin: 05/16/18 08:32 Dose: 500 mcg Docusate Sodium (Colace Cap*) 100 mg PO BID SERGE Last Admin: 05/16/18 19:28 Dose: 100 mg Gabapentin (Neurontin Cap(*)) 100 mg PO TID [facility] Last Admin: 05/16/18 19:29 Dose: 100 mg Sodium Chloride (Ns 0.9% 1000 Ml*) 1,000 mls @ 0 mls/hr IV WIDE OPEN SERGE Last Admin: 05/16/18 22:34 Dose: 999 mls/hr Lisinopril (Prinivil Tab*) 10 mg PO BEDTIME [facility] Last Admin: 05/16/18 19:28 Dose: 10 mg Magnesium Hydroxide (Milk Of Magnesia Liq*) 30 ml PO Q2H PRN PRN Reason: CONSTIPATION Last Admin: 05/15/18 16:36 Dose: 30 ml Ondansetron HCl (Zofran Odt Tab*) 4 mg SL Q6H PRN PRN Reason: NAUSEA/VOMITING Last Admin: 05/16/18 19:31 Dose: 4 mg Polyethylene Glycol/Electrolytes (Miralax*) 17 gm PO 0800,2100 [facility] Last Admin: 05/16/18 19:39 Dose: Not Given Vital Signs - 8 hr 05/16/18 05/17/18 05/17/18 23:55 01:35 03:48 Temperature 97.9 F 97.8 F Pulse Rate 89 83 91 Respiratory 20 16 16 Rate Blood Pressure 149/64 128/51 104/56 (mmHg) O2 Sat by Pulse 100 100 97 Oximetry Oxygen Devices in Use Now: Nasal Cannula Appearance: Elderly female lying in bed, NAD Eyes: No Scleral Icterus Ears/Nose/Mouth/Throat: Mucous Membranes Moist Respiratory: Symmetrical Chest Expansion and Respiratory Effort, Clear to Auscultation Cardiovascular: NL Sounds; No Murmurs; No JVD, RRR, No Edema Abdominal: NL Sounds; No Tenderness; No Distention Extremities: No Clubbing, Cyanosis Skin: No Nodules or Sclerosis Neurological: Alert and Oriented x 3 Result Diagrams: 05/17/18 06:29 05/16/18 14:35 Assess/Plan/Problems-Billing Ms Oliver is an 82 yo F who has a h/o HTN, HLD, stage III CKD and anemia of CKD who is s/p mechanical fall with L1 compression fx. - Patient Problems (1) Acute blood loss anemia Current Visit: Yes Status: Acute Code(s): D62 - ACUTE POSTHEMORRHAGIC ANEMIA SNOMED Code(s): 065208211 Comment: Pt with significant drop in H/H. Acute blood loss anemia secondary to bleed into R psoas muscle. Will transfuse 2 units PRBC today as the patient was symptomatic with the anemia (had LOC while trying to get up to bathroom). Recheck H/H this afternoon. Stop ASA and SQ heparin. (2) Elevated troponin Current Visit: Yes Status: Acute Code(s): R74.8 - ABNORMAL LEVELS OF OTHER SERUM ENZYMES SNOMED Code(s): 651140590 Comment: Secondary to demand ischemia from acute blood loss anemia. Monitor. No c/o chest pain. (3) Lactic acidosis Current Visit: Yes Status: Acute Code(s): E87.2 - ACIDOSIS SNOMED Code(s) : 26864167 Comment: Likely related to blood loss and intravascular volume depletion. Improved with IVF overnight. Follow until LA normalizes. No signs of infection. (4) Compression fracture Current Visit: Yes Status: Acute Code(s): DLV3868 - SNOMED Code(s): 240408595 Comment: Yesterday the patient c/o increased pain in the R leg described as burning/pins/needles. She had received baclofen 20mg around 0300 and seemed somewhat out of it. Low dose gabapentin ordered for possible radicular pain and MRI ordered. MRI shows large psoas hematoma. Likely the source of her increased pain. Percocet discontinued last night as pt required narcan due to oversedation. Will monitor pain and if it worsens will add back percocet but at longer intervals between doses. (5) Constipation Current Visit: Yes Status: Acute Code(s): K59.00 - CONSTIPATION, UNSPECIFIED SNOMED Code(s): 30551847 Comment: Pt had BM 05/15 evening and AM 05/16. Monitor for continued obstipation. (6) HYPERTENSION Current Visit: Yes Status: Active Comment: BP is under control with lisinopril. (7) CKD (chronic kidney disease) stage 3, GFR 30-59 ml/min Current Visit: Yes Status: Acute Code(s): N18.3 - CHRONIC KIDNEY DISEASE, STAGE 3 (MODERATE) SNOMED Code(s): 884490994 Comment: Creatinine is stable at baseline. Monitor intermittently. (8) Hyperlipidemia Current Visit: Yes Status: Active Code(s): E78.5 - HYPERLIPIDEMIA, UNSPECIFIED SNOMED Code(s): 89973489 Comment: Continue lipitor. (9) DVT prophylaxis Current Visit: Yes Status: Acute Code(s): CLG2869 - SNOMED Code(s): 668680251 Comment: Stop SQ heparin due to acute blood loss anemia. (10) DNR (do not resuscitate) Current Visit: Yes Status: Acute Status and Disposition: needs to have BM prior to STR d/c
--- NOTE | 2018-05-17 07:39 | RAD ---
INDICATION: Intracranial injury COMPARISON: None TECHNIQUE: Noncontrast axial source images were acquired from the skull base to the vertex. FINDINGS: Ventricles/sulci: The ventricles and cisterns are normal in size and configuration for age. Brain parenchyma: There is no focal parenchymal finding, evidence of intracranial mass, or intracranial mass effect. Intracranial hemorrhage:None. Extra-axial spaces: There are no abnormal extra axial fluid collections or evidence of extra-axial mass. Calvarium: There is no calvarial fracture. There is mild calvarial thickening. Scalp: There is no evidence of scalp or extracalvarial soft tissue abnormality. Paranasal sinuses/mastoid: The paranasal sinuses and mastoid air cells are clear. Other: None. IMPRESSION: No acute intracranial findings
[2018-05-17] MEDS: Polyethylene Glycol 3350* 17 GM PACKET PO SCH ×2 (08:29→20:09)
[2018-05-17] MEDS: Docusate CAP* 100 MG PO SCH ×2 (08:29→20:09)
[2018-05-17] MEDS: Cyanocobalamin TAB* 500 MCG PO SCH (08:38)
[2018-05-17] MEDS: Ondansetron ODT TAB* 4 MG SL PRN ×2 (08:43→23:45)
[2018-05-17] MEDS: NS 0.9% 1000 ML* 1,000 ML IV SCH (08:43)
[2018-05-17 11:14] LABS: EGFR Non-African American 22.9 (>60)
[2018-05-17] MEDS ORDERED: NS 0.9% 500 ML* 500 ML IV ONE (11:39)
[2018-05-17 16:25] LABS: Hematocrit 26 % (35-47); Hemoglobin 9.1 g/dl (12.0-16.0)
[2018-05-17] MEDS: Acetaminophen TAB* 325 MG PO PRN (20:08)
[2018-05-17] MEDS: Atorvastatin* 20 MG TAB PO SCH (20:08)
[2018-05-17 23:43] LABS: Hematocrit 24 % (35-47); Hemoglobin 8.2 g/dl (12.0-16.0)
[2018-05-18] MEDS: Acetaminophen TAB* 325 MG PO PRN ×4 (00:23→21:42)
[2018-05-18] MEDS: NS 0.9% 1000 ML* 1,000 ML IV SCH (01:51)
[2018-05-18 06:11] LABS: Hematocrit 21 % (35-47); Hemoglobin 7.3 g/dl (12.0-16.0); Mean Corpuscular HGB Conc 34 g/dl (31-36); Mean Corpuscular Hemoglobin 32 pg (27-31); Mean Corpuscular Volume 92 fL (80-97); Mean Platelet Volume 8.4 um3 (7.4-10.4); Platelet Count 126 10^3/ul (150-450); Red Blood Count 2.29 10^6/ul (4.00-5.40); Red Cell Distribution Width 13 % (10.5-15); White Blood Count 12.8 10^3/ul (3.5-10.8)
[2018-05-18 06:28] LABS: EGFR Non-African American 30.6 (>60)
--- NOTE | 2018-05-18 07:18 | PN ---
Subjective Date of Service: 05/18/18 Interval History: Pt is feeling very poorly again this AM. She states her pain is worse again today. Any movement causes significant pain in her R hip and back. She states tylenol alone does not help her pain (that is all she had overnight). She has not been able to urinate while lying flat in bed and sitting up is very painful for her. Objective Active Medications: Acetaminophen (Tylenol Tab*) 650 mg PO Q4H PRN PRN Reason: FEVER/PAIN Last Admin: 05/18/18 00:23 Dose: 650 mg Albuterol (Ventolin Hfa Inhaler*) 2 puff INH Q4H PRN PRN Reason: SOB/WHEEZING Atorvastatin Calcium (Lipitor*) 20 mg PO BEDTIME [facility] Last Admin: 05/17/18 20:08 Dose: 20 mg Cyanocobalamin (Vitamin B12 Tab*) 500 mcg PO DAILY [facility] Last Admin: 05/17/18 08:38 Dose: 500 mcg Docusate Sodium (Colace Cap*) 100 mg PO BID [facility] Last Admin: 05/17/18 20:09 Dose: Not Given Sodium Chloride (Ns 0.9% 1000 Ml*) 1,000 mls @ 100 mls/hr IV PER RATE [facility] Last Admin: 05/18/18 01:51 Dose: 100 mls/hr Magnesium Hydroxide (Milk Of Magnesia Liq*) 30 ml PO Q2H PRN PRN Reason: CONSTIPATION Last Admin: 05/15/18 16:36 Dose: 30 ml Morphine Sulfate (Morphine Inj ((Syringe))*) 2 mg IV Q4H PRN PRN Reason: PAIN - MILD Ondansetron HCl (Zofran Odt Tab*) 4 mg SL Q6H PRN PRN Reason: NAUSEA/VOMITING Last Admin: 05/17/18 23:45 Dose: 4 mg Polyethylene Glycol/Electrolytes (Miralax*) 17 gm PO 0800,2100 [facility] Last Admin: 05/17/18 20:09 Dose: Not Given Vital Signs - 8 hr 05/17/18 05/18/18 23:32 03:48 Temperature 98.3 F 97.5 F Pulse Rate 86 86 Respiratory 16 16 Rate Blood Pressure 157/52 158/69 (mmHg) O2 Sat by Pulse 100 99 Oximetry Oxygen Devices in Use Now: Nasal Cannula Appearance: Elderly female lying in bed, pale skin, talkative, NAD Eyes: No Scleral Icterus Ears/Nose/Mouth/Throat: Mucous Membranes Moist Respiratory: Symmetrical Chest Expansion and Respiratory Effort, Clear to Auscultation - anteriorly Cardiovascular: NL Sounds; No Murmurs; No JVD, RRR, No Edema Abdominal: - - BS+ soft, mildly distended, mild tenderness to palpation in the RLQ Extremities: No Clubbing, Cyanosis Skin: No Nodules or Sclerosis, - - large bruise noted to posterior aspect of R arm Neurological: Alert and Oriented x 3 Result Diagrams: 05/18/18 05:45 05/18/18 05:45 Assess/Plan/Problems-Billing Ms Oliver is an 82 yo F who has a h/o HTN, HLD, stage III CKD and anemia of CKD who is s/p mechanical fall with L1 compression fx. - Patient Problems (1) Hyponatremia Current Visit: Yes Status: Acute Code(s): E87.1 - HYPO-OSMOLALITY AND HYPONATREMIA SNOMED Code(s): 94812459 Comment: Initially I felt the hyponatremia was secondary to hypovolemia however, now she has been receiving NS and with that her sodium is dropping further. ? SIADH due to pain. Will send off urine NA and osm. Continue IVF at current rate for now and recheck Na level at 1000- if down further will stop IVF and start free water restriction or consider hypertonic saline. (2) Acute blood loss anemia Current Visit: Yes Status: Acute Code(s): D62 - ACUTE POSTHEMORRHAGIC ANEMIA SNOMED Code(s): 012704161 Comment: The patient received 2 units PRBC yesterday with improvement in her H/H by last evening. This AM H/H again dropped. Will transfuse 2 more units PRBC. May need to consider scanning her again to look for ongoing bleeding. The R psoas hematoma I believe is causing much of the patient's pain. She will remain in bed for now until her H/H is stable as she became near syncopal yesterday AM when trying to get her up to the commode. Continue to hold ASA and SQ heparin. (3) Compression fracture Current Visit: Yes Status: Acute Code(s): [id number] - SNOMED Code(s): 423197211 Comment: Compression fracture on MRI stable. She continues again complains of severe back pain. Will start morphine 2mg IV q4hr prn with close monitoring of her mental status for oversedation. She is going to need STR following treatment for the psoas hematoma. (4) CKD (chronic kidney disease) stage 3, GFR 30-59 ml/min Current Visit: Yes Status: Acute Code(s): N18.3 - CHRONIC KIDNEY DISEASE, STAGE 3 (MODERATE) SNOMED Code(s): 033215531 Comment: Creatinine worsened to 2.07 yesterday AM. Now trending back down with blood and IVF. (5) Constipation Current Visit: Yes Status: Acute Code(s): K59.00 - CONSTIPATION, UNSPECIFIED SNOMED Code(s): 63105607 Comment: Monitor for BMs (pt reportedly had BM yesterday). (6) HYPERTENSION Current Visit: Yes Status: Active Comment: BP is under control with lisinopril. Pt had a couple low BPs yesterday but this has resolved. (7) Hyperlipidemia Current Visit: Yes Status: Active Code(s): E78.5 - HYPERLIPIDEMIA, UNSPECIFIED SNOMED Code(s): 80446464 Comment: Continue lipitor. (8) DVT prophylaxis Current Visit: Yes Status: Acute Code(s): XCW5154 - SNOMED Code(s): 258251056 Comment: SCDs only secondary to acute blood loss anemia (9) DNR (do not resuscitate) Current Visit: Yes Status: Acute Status and Disposition: needs to have BM prior to STR d/c
[2018-05-18] MEDS: Cyanocobalamin TAB* 500 MCG PO SCH (09:00)
[2018-05-18] MEDS: Morphine INJ* 2 MG/ML 1 ML SYRINGE (TWO MG - NEW SYRINGE VERSION) IV PRN ×4 (09:00→19:18)
[2018-05-18] MEDS: Docusate CAP* 100 MG PO SCH ×2 (09:01→21:22)
[2018-05-18] MEDS: Polyethylene Glycol 3350* 17 GM PACKET PO SCH ×2 (09:01→21:22)
[2018-05-18] MEDS: Ondansetron ODT TAB* 4 MG SL PRN (09:16)
[2018-05-18 14:57] LABS: Hematocrit 27 % (35-47); Hemoglobin 9.1 g/dl (12.0-16.0)
--- NOTE | 2018-05-18 16:45 | RAD ---
INDICATION: Left facial droop COMPARISON: CT brain May 16, 2018 TECHNIQUE: Noncontrast axial source images were acquired from the skull base to the vertex. FINDINGS: Ventricles/sulci: The ventricles and cisterns are normal in size and configuration for age. Brain parenchyma: There is no focal parenchymal finding, evidence of intracranial mass, or intracranial mass effect. Intracranial hemorrhage:None. Extra-axial spaces: There are no abnormal extra axial fluid collections or evidence of extra-axial mass. Calvarium: There is a thickened calvarium. Scalp: There is no evidence of scalp or extracalvarial soft tissue abnormality. Paranasal sinuses/mastoid: The paranasal sinuses and mastoid air cells are clear. Other: None. IMPRESSION: No acute intracranial findings
[2018-05-18] MEDS ORDERED: Sodium Chloride 3% HYPERTONIC* 500 ML IVPB ONE (16:47)
[2018-05-18] MEDS ORDERED: hydrALAZINE IV* 20 MG/ML VIAL IV PRN (20:10)
[2018-05-18] MEDS: Atorvastatin* 20 MG TAB PO SCH (21:21)
[2018-05-19] MEDS: Morphine INJ* 2 MG/ML 1 ML SYRINGE (TWO MG - NEW SYRINGE VERSION) IV PRN (00:01)
[2018-05-19] MEDS: Ondansetron ODT TAB* 4 MG SL PRN ×3 (00:29→16:29)
[2018-05-19 04:34] LABS: Hematocrit 21 % (35-47); Hemoglobin 7.2 g/dl (12.0-16.0); Mean Corpuscular HGB Conc 35 g/dl (31-36); Mean Corpuscular Hemoglobin 31 pg (27-31); Mean Corpuscular Volume 89 fL (80-97); Mean Platelet Volume 8.4 um3 (7.4-10.4); Platelet Count 120 10^3/ul (150-450); Red Blood Count 2.34 10^6/ul (4.00-5.40); Red Cell Distribution Width 14 % (10.5-15); White Blood Count 12.2 10^3/ul (3.5-10.8)
[2018-05-19 04:51] LABS: EGFR Non-African American 46.9 (>60)
[2018-05-19 05:25] LABS: Hematocrit 20 % (35-47); Hemoglobin 7.1 g/dl (12.0-16.0)
--- NOTE | 2018-05-19 07:18 | PN ---
Subjective Date of Service: 05/19/18 Interval History: Pt states she is feeling pretty comfortable currently. Moving to the CT scanner was painful but less so than previously. She thinks she has incrased movement of the R leg today. She denies any SOB. Objective Active Medications: Acetaminophen (Tylenol Tab*) 650 mg PO Q4H PRN PRN Reason: FEVER/PAIN Last Admin: 05/18/18 21:42 Dose: 650 mg Albuterol (Ventolin Hfa Inhaler*) 2 puff INH Q4H PRN PRN Reason: SOB/WHEEZING Atorvastatin Calcium (Lipitor*) 20 mg PO BEDTIME [facility] Last Admin: 05/18/18 21:21 Dose: 20 mg Cyanocobalamin (Vitamin B12 Tab*) 500 mcg PO DAILY [facility] Last Admin: 05/18/18 09:00 Dose: 500 mcg Docusate Sodium (Colace Cap*) 100 mg PO BID [facility] Last Admin: 05/18/18 21:22 Dose: Not Given Hydralazine HCl (Apresoline Iv*) 10 mg IV Q4H PRN PRN Reason: Systolic >170 Last Admin: 05/18/18 21:21 Dose: 10 mg Magnesium Hydroxide (Milk Of Magnesia Liq*) 30 ml PO Q2H PRN PRN Reason: CONSTIPATION Last Admin: 05/15/18 16:36 Dose: 30 ml Morphine Sulfate (Morphine Inj ((Syringe))*) 2 mg IV Q4H PRN PRN Reason: PAIN - MILD Last Admin: 05/19/18 00:01 Dose: 2 mg Ondansetron HCl (Zofran Odt Tab*) 4 mg SL Q6H PRN PRN Reason: NAUSEA/VOMITING Last Admin: 05/19/18 00:29 Dose: 4 mg Polyethylene Glycol/Electrolytes (Miralax*) 17 gm PO 0800,2100 [facility] Last Admin: 05/18/18 21:22 Dose: Not Given Vital Signs - 8 hr 05/18/18 05/18/18 05/19/18 23:28 23:30 00:00 Temperature 97.5 F Pulse Rate 81 83 Respiratory 17 20 24 Rate Blood Pressure 150/61 (mmHg) O2 Sat by Pulse 100 100 Oximetry 05/19/18 05/19/18 05/19/18 00:01 01:00 01:13 Temperature Pulse Rate 86 93 Respiratory 20 18 24 Rate Blood Pressure 156/58 (mmHg) O2 Sat by Pulse 100 99 Oximetry 05/19/18 05/19/18 05/19/18 02:00 03:00 03:37 Temperature 97.8 F Pulse Rate 82 81 Respiratory 17 15 Rate Blood Pressure (mmHg) O2 Sat by Pulse 100 100 Oximetry 05/19/18 05/19/18 04:00 05:00 Temperature Pulse Rate 86 84 Respiratory 18 15 Rate Blood Pressure (mmHg) O2 Sat by Pulse 100 100 Oximetry Oxygen Devices in Use Now: None Appearance: Elderly female lying in bed, NAD Eyes: No Scleral Icterus Ears/Nose/Mouth/Throat: Mucous Membranes Moist Respiratory: Symmetrical Chest Expansion and Respiratory Effort, Clear to Auscultation - anteriorly, decreased breath sounds at R lateral base Cardiovascular: NL Sounds; No Murmurs; No JVD, RRR, No Edema Abdominal: NL Sounds; No Tenderness; No Distention Extremities: No Clubbing, Cyanosis Skin: No Nodules or Sclerosis Neurological: Alert and Oriented x 3 Result Diagrams: 05/19/18 05:17 05/19/18 04:26 Assess/Plan/Problems-Billing Ms Oliver is an 82 yo F who has a h/o HTN, HLD, stage III CKD and anemia of CKD who is s/p mechanical fall with L1 compression fx. - Patient Problems (1) Hyponatremia Current Visit: Yes Status: Acute Code(s): E87.1 - HYPO-OSMOLALITY AND HYPONATREMIA SNOMED Code(s): 13963102 Comment: Pt started on hypertonic saline at 25ml/hr last evening-ran from about [id number] today. Na improved to 121. Free water fluid restriction in place for likely SIADH. Will get follow up Na level midday. If dropping again will resume hypertonic saline. (2) Acute blood loss anemia Current Visit: Yes Status: Acute Code(s): D62 - ACUTE POSTHEMORRHAGIC ANEMIA SNOMED Code(s): 748868947 Comment: Pt again dropped H/H this AM. She has already received 4 units PRBC. She is just starting a 5th unit now. Will follow H/H closely. She now has retroperitoneal bleeding in addition to a large psoas hematoma on repeat imaging. Will discuss with radiology about possible embolization of a bleeding vessel. (3) Compression fracture Current Visit: Yes Status: Acute Code(s): HFF2642 - SNOMED Code(s): 528521494 Comment: Compression fracture on MRI stable. Continue prn morphine. (4) CKD (chronic kidney disease) stage 3, GFR 30-59 ml/min Current Visit: Yes Status: Acute Code(s): N18.3 - CHRONIC KIDNEY DISEASE, STAGE 3 (MODERATE) SNOMED Code(s): 713114087 Comment: Creatinine back to baseline. Will continue to follow. (5) Constipation Current Visit: Yes Status: Acute Code(s): K59.00 - CONSTIPATION, UNSPECIFIED SNOMED Code(s): 35625793 Comment: Monitor for BMs. (6) HYPERTENSION Current Visit: Yes Status: Active Comment: Pt is now hypertensive. Will restart lisinopril 10mg daily. Was held for hypotension and bleeding. (7) Hyperlipidemia Current Visit: Yes Status: Active Code(s): E78.5 - HYPERLIPIDEMIA, UNSPECIFIED SNOMED Code(s): 13104880 Comment: Continue lipitor. (8) DVT prophylaxis Current Visit: Yes Status: Acute Code(s): AQR9936 - SNOMED Code(s): 310302440 Comment: SCDs only secondary to acute blood loss anemia (9) DNR (do not resuscitate) Current Visit: Yes Status: Acute Status and Disposition: needs to have BM prior to STR d/c
--- NOTE | 2018-05-19 07:57 | RAD ---
INDICATION: Anemia. Known psoas hematoma COMPARISON: CT abdomen pelvis May 10, 2018: MRI lumbar spine May 16, 2018 TECHNIQUE: Noncontrast axial source images were obtained from the hemidiaphragms to the symphysis pubis. Coronal and sagittal reconstructed images were generated. This examination was ordered using a renal stone protocol which is performed without oral or intravenous contrast and therefore has inherent limitations when used to evaluate other intra-abdominal or intrapelvic pathology. Consider conventional contrast enhanced imaging if clinically indicated. Lung bases: There are bilateral pleural effusions right greater than left. These effusions are new. There is compression atelectasis in the right lung base which is also new. Suggest follow-up chest x-rays as indicated. Liver: The liver is normal in size. Noncontrast imaging shows no evidence of a hepatic mass or ductal dilatation. Gallbladder: There are no calcified gallstones. There is no evidence of wall thickening or pericholecystic fluid.. Spleen: The spleen is normal in size. The noncontrast CT appearance is normal. Pancreas: Noncontrast imaging shows no pancreatic mass or ductal dilitation. Adrenal glands: No masses are identified. Kidneys/Bladder: There is no evidence of nephrolithiasis or CT evidence of hydronephrosis. Noncontrast imaging shows no evidence of a renal mass. The right kidney is displaced by the large psoas hematoma there is persistent mild right-sided hydronephrosis. There are no additional significant renal findings The bladder is decompressed with a Belle catheter.. Adenopathy: There is no evidence of intraperitoneal or retroperitoneal adenopathy. Evaluation is limited without oral contrast. Fluid collections: There is trace free intraperitoneal fluid. Vessels: There are atherosclerotic changes of the aorta and iliac vessels. There is no focal aneurysm. The IVC appears normal Pelvic organs: The uterus and adnexa appear normal GI tract: Evaluation of the bowel is limited without oral contrast. The upper GI tract is grossly normal. There is moderate stool in the colon predominantly in the right and transverse colon. Soft tissues: There is subcutaneous edema. Other: There is a large right psoas hematoma. The hematoma measures approximately 7 x 6.5 x 20 cm which is similar to the MRI. There is adjacent retroperitoneal hematoma posterior to the muscular structure in the right pelvis. Osseous structures: There are no acute osseous findings. There is a L1 compression deformity with minor bony retropulsion which is well evaluated and described on the earlier MRI. IMPRESSION: 1. Large right psoas hematoma with mild retroperitoneal extension appearing similar to the MRI. 2. Bibasilar pleural effusions and atelectasis in the right lung base. Suggest follow-up chest x-ray as indicated
[2018-05-19] MEDS: Polyethylene Glycol 3350* 17 GM PACKET PO SCH (08:52)
[2018-05-19] MEDS: Cyanocobalamin TAB* 500 MCG PO SCH (08:54)
[2018-05-19] MEDS: Lisinopril TAB* 10 MG PO SCH (08:55)
[2018-05-19] MEDS: Docusate CAP* 100 MG PO SCH ×2 (08:55→21:21)
[2018-05-19 11:15] LABS: Hematocrit 23 % (35-47)
[2018-05-19] MEDS: PROCHLORPERAZINE INJ 5 MG/ML 2 ML VIAL IV PRN (13:42)
[2018-05-19 19:15] LABS: Hematocrit 26 % (35-47)
[2018-05-19] MEDS: Atorvastatin* 20 MG TAB PO SCH (21:21)
[2018-05-20 00:20] LABS: Hematocrit 24 % (35-47); Hemoglobin 8.8 g/dl (12.0-16.0); Mean Corpuscular HGB Conc 36 g/dl (31-36); Mean Corpuscular Hemoglobin 32 pg (27-31); Mean Corpuscular Volume 89 fL (80-97); Mean Platelet Volume 8.2 um3 (7.4-10.4); Platelet Count 118 10^3/ul (150-450); Red Blood Count 2.72 10^6/ul (4.00-5.40); Red Cell Distribution Width 14 % (10.5-15); White Blood Count 10.6 10^3/ul (3.5-10.8)
[2018-05-20 00:51] LABS: EGFR Non-African American 48.5 (>60)
[2018-05-20 01:02] LABS: ABS Basophils 0 10^3/ul (0-0.2); ABS Eosinophils 0 10^3/ul (0-0.6); ABS Lymphocytes 0.8 10^3/ul (1.0-4.8); ABS Monocytes 0.9 10^3/ul (0-0.8); ABS Neutrophils 8.9 10^3/ul (1.5-7.7); ABS Nucleated RBC 0 10^3/ul
[2018-05-20 01:46] LABS: Eosinophil % 0.1 % (0-6); Lymphocyte % 7.9 % (25-47); Nucleated Red Blood Cells % 0.1
[2018-05-20] MEDS: Polyethylene Glycol 3350* 17 GM PACKET PO SCH ×3 (03:22→20:32)
[2018-05-20 04:27] LABS: Hematocrit 24 % (35-47); Hemoglobin 8.6 g/dl (12.0-16.0)
[2018-05-20] MEDS ORDERED: Furosemide IV* 10 MG/ML 2 ML VIAL (20 MG) IV ONE (06:57)
--- NOTE | 2018-05-20 07:21 | PN ---
Subjective Date of Service: 05/20/18 Interval History: Pt is feeling ok. No significant nausea this AM but she is afraid to try to eat as she does not want to become nauseous. Her pain is manageable with the pain medication she is receiving and ice packs. She has increased mobility in her R leg. She has not had a BM since getting to the ICU a couple days ago. Objective Active Medications: Acetaminophen (Tylenol Tab*) 650 mg PO Q4H PRN PRN Reason: FEVER/PAIN Last Admin: 05/18/18 21:42 Dose: 650 mg Albuterol (Ventolin Hfa Inhaler*) 2 puff INH Q4H PRN PRN Reason: SOB/WHEEZING Atorvastatin Calcium (Lipitor*) 20 mg PO BEDTIME [facility] Last Admin: 05/19/18 21:21 Dose: 20 mg Cyanocobalamin (Vitamin B12 Tab*) 500 mcg PO DAILY [facility] Last Admin: 05/19/18 08:54 Dose: 500 mcg Docusate Sodium (Colace Cap*) 100 mg PO BID [facility] Last Admin: 05/19/18 21:21 Dose: 100 mg Hydralazine HCl (Apresoline Iv*) 10 mg IV Q4H PRN PRN Reason: Systolic >170 Last Admin: 05/18/18 21:21 Dose: 10 mg Lisinopril (Prinivil Tab*) 10 mg PO DAILY [facility] Last Admin: 05/19/18 08:55 Dose: 10 mg Magnesium Hydroxide (Milk Of Magnesia Liq*) 30 ml PO Q2H PRN PRN Reason: CONSTIPATION Last Admin: 05/15/18 16:36 Dose: 30 ml Morphine Sulfate (Morphine Inj ((Syringe))*) 2 mg IV Q4H PRN PRN Reason: PAIN - MILD Last Admin: 05/19/18 00:01 Dose: 2 mg Ondansetron HCl (Zofran Odt Tab*) 4 mg SL Q6H PRN PRN Reason: NAUSEA/VOMITING Last Admin: 05/19/18 16:29 Dose: 4 mg Polyethylene Glycol/Electrolytes (Miralax*) 17 gm PO 0800,2100 [facility] Last Admin: 05/20/18 03:22 Dose: Not Given Prochlorperazine Edisylate (Compazine Inj*) 10 mg IV Q6H PRN PRN Reason: NAUSEA/VOMITING Last Admin: 05/19/18 13:42 Dose: 10 mg Vital Signs - 8 hr 05/19/18 05/19/18 05/19/18 23:24 23:29 23:30 Temperature 98.5 F Pulse Rate 103 88 Respiratory 19 20 Rate Blood Pressure 164/54 (mmHg) O2 Sat by Pulse 95 94 Oximetry 05/20/18 05/20/18 05/20/18 00:00 01:00 02:00 Temperature Pulse Rate 93 83 87 Respiratory 17 17 17 Rate Blood Pressure (mmHg) O2 Sat by Pulse 93 93 93 Oximetry 05/20/18 05/20/18 05/20/18 03:00 03:15 03:25 Temperature 97.7 F Pulse Rate 81 Respiratory 16 16 Rate Blood Pressure (mmHg) O2 Sat by Pulse 93 Oximetry 05/20/18 05/20/18 04:00 05:00 Temperature Pulse Rate 97 82 Respiratory 24 17 Rate Blood Pressure 164/60 (mmHg) O2 Sat by Pulse 93 94 Oximetry Oxygen Devices in Use Now: None Appearance: Elderly female lying in bed, NAD Eyes: No Scleral Icterus Ears/Nose/Mouth/Throat: Mucous Membranes Moist Respiratory: Symmetrical Chest Expansion and Respiratory Effort, Clear to Auscultation - anteriorly Cardiovascular: NL Sounds; No Murmurs; No JVD, RRR, - - trace-1+ LE edema R>L Abdominal: NL Sounds; No Tenderness; No Distention Extremities: No Clubbing, Cyanosis Skin: No Nodules or Sclerosis Neurological: Alert and Oriented x 3 Result Diagrams: 05/20/18 04:15 05/20/18 04:15 Assess/Plan/Problems-Billing Ms Oliver is an 82 yo F who has a h/o HTN, HLD, stage III CKD and anemia of CKD who is s/p mechanical fall with L1 compression fx. - Patient Problems (1) Hyponatremia Current Visit: Yes Status: Acute Code(s): E87.1 - HYPO-OSMOLALITY AND HYPONATREMIA SNOMED Code(s): 62575916 Comment: Na level up to 123. Continue free water fluid restriction. Follow up Na level this afternoon. If Na level stable and H/H stable will transfer back to medical floor either this afternoon or tomorrow. Urine studies confirm SIADH. (2) Acute blood loss anemia Current Visit: Yes Status: Acute Code(s): D62 - ACUTE POSTHEMORRHAGIC ANEMIA SNOMED Code(s): 926232530 Comment: H/H relatively stable this AM from last night. Will still follow H/ H closely. If she again begins to drop her Hb will transfer for evaluation of possible embolization. Pt received 6 units PRBC. (3) Compression fracture Current Visit: Yes Status: Acute Code(s): [id number] - SNOMED Code(s): 395023709 Comment: Continue prn morphine for pain control. Will try to get pt up to a chair today if next H/H stable. (4) CKD (chronic kidney disease) stage 3, GFR 30-59 ml/min Current Visit: Yes Status: Acute Code(s): N18.3 - CHRONIC KIDNEY DISEASE, STAGE 3 (MODERATE) SNOMED Code(s): 982210996 Comment: Creatinine back to baseline. Will continue to follow. (5) Constipation Current Visit: Yes Status: Acute Code(s): K59.00 - CONSTIPATION, UNSPECIFIED SNOMED Code(s): 72642011 Comment: Continue aggressive bowel regimen. Pt has not had a BM in a few days now. She still has a large amount of stool in her colon based on CT scan yesterday. (6) HYPERTENSION Current Visit: Yes Status: Active Comment: BP moderately elevated. Continue lisinopril 10mg daily for now. (7) Hyperlipidemia Current Visit: Yes Status: Active Code(s): E78.5 - HYPERLIPIDEMIA, UNSPECIFIED SNOMED Code(s): 41281656 Comment: Continue lipitor. (8) DVT prophylaxis Current Visit: Yes Status: Acute Code(s): AUQ1721 - SNOMED Code(s): 813674267 Comment: SCDs only secondary to acute blood loss anemia (9) DNR (do not resuscitate) Current Visit: Yes Status: Acute Status and Disposition: .
[2018-05-20] MEDS: PROCHLORPERAZINE INJ 5 MG/ML 2 ML VIAL IV PRN ×2 (07:44→18:00)
[2018-05-20] MEDS: Docusate CAP* 100 MG PO SCH ×2 (07:45→20:32)
[2018-05-20] MEDS: Cyanocobalamin TAB* 500 MCG PO SCH (07:45)
[2018-05-20] MEDS: Lisinopril TAB* 10 MG PO SCH (07:45)
[2018-05-20] MEDS: Ondansetron ODT TAB* 4 MG SL PRN (08:22)
[2018-05-20 09:28] LABS: Hematocrit 26 % (35-47)
[2018-05-20] MEDS: Morphine INJ* 2 MG/ML 1 ML SYRINGE (TWO MG - NEW SYRINGE VERSION) IV PRN ×2 (10:24→19:11)
[2018-05-20 15:35] LABS: Hematocrit 27 % (35-47); Hemoglobin 9.8 g/dl (12.0-16.0)
[2018-05-20] MEDS: Atorvastatin* 20 MG TAB PO SCH (20:32)
[2018-05-21] MEDS: Acetaminophen TAB* 325 MG PO PRN ×3 (04:29→16:13)
[2018-05-21 06:31] LABS: Hematocrit 22 % (35-47); Hemoglobin 7.8 g/dl (12.0-16.0); Mean Corpuscular HGB Conc 36 g/dl (31-36); Mean Corpuscular Hemoglobin 33 pg (27-31); Mean Corpuscular Volume 92 fL (80-97); Platelet Count 136 10^3/ul (150-450); Red Blood Count 2.39 10^6/ul (4.00-5.40); Red Cell Distribution Width 14 % (10.5-15); White Blood Count 10.9 10^3/ul (3.5-10.8)
[2018-05-21 06:42] LABS: EGFR Non-African American 55.5 (>60)
[2018-05-21] MEDS: Cyanocobalamin TAB* 500 MCG PO SCH (08:13)
[2018-05-21] MEDS: Docusate CAP* 100 MG PO SCH ×2 (08:13→21:17)
[2018-05-21] MEDS: Polyethylene Glycol 3350* 17 GM PACKET PO SCH ×2 (08:13→21:17)
[2018-05-21] MEDS: Lisinopril TAB* 10 MG PO SCH (08:13)
[2018-05-21 11:00] LABS: Hematocrit 25 % (35-47); Hemoglobin 8.5 g/dl (12.0-16.0)
--- NOTE | 2018-05-21 19:05 | PN ---
Subjective Date of Service: 05/21/18 Interval History: Pt is feeling ok today. In fact a little better than tomorrow. She denies any SOB. She did get up to the chair and commode today. She had a small BM this AM. Her nausea is ok if she eats only small amounts of food. Objective Active Medications: Acetaminophen (Tylenol Tab*) 650 mg PO Q4H PRN PRN Reason: FEVER/PAIN Last Admin: 05/21/18 16:13 Dose: 650 mg Albuterol (Ventolin Hfa Inhaler*) 2 puff INH Q4H PRN PRN Reason: SOB/WHEEZING Atorvastatin Calcium (Lipitor*) 20 mg PO BEDTIME [facility] Last Admin: 05/20/18 20:32 Dose: 20 mg Cyanocobalamin (Vitamin B12 Tab*) 500 mcg PO DAILY [facility] Last Admin: 05/21/18 08:13 Dose: 500 mcg Docusate Sodium (Colace Cap*) 100 mg PO BID [facility] Last Admin: 05/21/18 08:13 Dose: 100 mg Hydralazine HCl (Apresoline Iv*) 10 mg IV Q4H PRN PRN Reason: Systolic >170 Last Admin: 05/18/18 21:21 Dose: 10 mg Lisinopril (Prinivil Tab*) 10 mg PO DAILY [facility] Last Admin: 05/21/18 08:13 Dose: 10 mg Magnesium Hydroxide (Milk Of Magnclemencia Liq*) 30 ml PO Q2H PRN PRN Reason: CONSTIPATION Last Admin: 05/15/18 16:36 Dose: 30 ml Morphine Sulfate (Morphine Inj ((Syringe))*) 2 mg IV Q4H PRN PRN Reason: PAIN - MILD Last Admin: 05/20/18 19:11 Dose: 2 mg Ondansetron HCl (Zofran Odt Tab*) 4 mg SL Q6H PRN PRN Reason: NAUSEA/VOMITING Last Admin: 05/20/18 08:22 Dose: 4 mg Polyethylene Glycol/Electrolytes (Miralax*) 17 gm PO 0800,2100 [facility] Last Admin: 05/21/18 08:13 Dose: 17 gm Prochlorperazine Edisylate (Compazine Inj*) 10 mg IV Q6H PRN PRN Reason: NAUSEA/VOMITING Last Admin: 05/20/18 18:00 Dose: 10 mg Simethicone (Mylicon Tab*) 80 mg PO Q6H PRN PRN Reason: bloating Vital Signs - 8 hr 05/21/18 05/21/18 11:17 15:34 Temperature 97.7 F 97.9 F Pulse Rate 85 84 Respiratory 16 16 Rate Blood Pressure 103/39 139/52 (mmHg) O2 Sat by Pulse 100 99 Oximetry Oxygen Devices in Use Now: None Appearance: Elderly female sitting up in bed, reading, NAD Eyes: No Scleral Icterus Ears/Nose/Mouth/Throat: Mucous Membranes Moist Respiratory: Symmetrical Chest Expansion and Respiratory Effort, Clear to Auscultation Cardiovascular: NL Sounds; No Murmurs; No JVD, RRR, No Edema Abdominal: - - BS+ soft, NT, moderately distended, tympanic to percussion Extremities: No Clubbing, Cyanosis Skin: No Nodules or Sclerosis Neurological: Alert and Oriented x 3 Result Diagrams: 05/21/18 10:46 05/21/18 06:21 Assess/Plan/Problems-Billing Ms Oliver is an 82 yo F who has a h/o HTN, HLD, stage III CKD and anemia of CKD who is s/p mechanical fall with L1 compression fx. - Patient Problems (1) Hyponatremia Current Visit: Yes Status: Acute Code(s): E87.1 - HYPO-OSMOLALITY AND HYPONATREMIA SNOMED Code(s): 53999144 Comment: Na continues to improve with free water restriction. Follow Na level closely for continued improvement. (2) Acute blood loss anemia Current Visit: Yes Status: Acute Code(s): D62 - ACUTE POSTHEMORRHAGIC ANEMIA SNOMED Code(s): 130518547 Comment: H/H down some today-this AM Hb low at 7.8, rechecked ~3hr later Hb up to 8.5 (I suspect the 7.8 was artifactually low). Follow up CBC tomorrow. (3) Retroperitoneal hematoma Current Visit: Yes Status: Acute Code(s): K66.1 - HEMOPERITONEUM SNOMED Code(s): 129472412 Comment: Pt with psoas and retroperitoneal hematomas. Bleeding as above likely stopped. Continue pain control. (4) Compression fracture Current Visit: Yes Status: Acute Code(s): APM6866 - SNOMED Code(s): 601777964 Comment: Pt is working with PT. Pain is relatively controlled. Will add oral narcotic for pain control. PMRU eval vs PATRICA. (5) CKD (chronic kidney disease) stage 3, GFR 30-59 ml/min Current Visit: Yes Status: Acute Code(s): N18.3 - CHRONIC KIDNEY DISEASE, STAGE 3 (MODERATE) SNOMED Code(s): 604371763 Comment: Creatinine back to baseline. Will continue to follow. (6) Constipation Current Visit: Yes Status: Acute Code(s): K59.00 - CONSTIPATION, UNSPECIFIED SNOMED Code(s): 56627202 Comment: Continue bowel regimen. Monitor for further BMs. (7) HYPERTENSION Current Visit: Yes Status: Active Comment: BP under good control. Continue lisinopril 10mg daily. (8) Hyperlipidemia Current Visit: Yes Status: Active Code(s): E78.5 - HYPERLIPIDEMIA, UNSPECIFIED SNOMED Code(s): 94090009 Comment: Continue lipitor. (9) DVT prophylaxis Current Visit: Yes Status: Acute Code(s): REU0771 - SNOMED Code(s): 181368496 Comment: SCDs only secondary to acute blood loss anemia (10) DNR (do not resuscitate) Current Visit: Yes Status: Acute Status and Disposition: .
[2018-05-21] MEDS: Simethicone TAB* 80 MG TAB.CHEW PO PRN (20:25)
[2018-05-21] MEDS: oxyCODONE TAB* 5 MG TAB PO PRN (21:17)
[2018-05-21] MEDS: Atorvastatin* 20 MG TAB PO SCH (21:17)
[2018-05-22 06:35] LABS: Hematocrit 23 % (35-47); Hemoglobin 8.2 g/dl (12.0-16.0); Mean Corpuscular HGB Conc 35 g/dl (31-36); Mean Corpuscular Hemoglobin 32 pg (27-31); Mean Corpuscular Volume 93 fL (80-97); Platelet Count 164 10^3/ul (150-450); Red Blood Count 2.53 10^6/ul (4.00-5.40); Red Cell Distribution Width 14 % (10.5-15); White Blood Count 11.5 10^3/ul (3.5-10.8)
[2018-05-22] MEDS: Magnesium Hydroxide LIQ* 30 ML UDC PO PRN (08:59)
[2018-05-22] MEDS: Simethicone TAB* 80 MG TAB.CHEW PO PRN ×2 (09:00→13:32)
[2018-05-22] MEDS: Lisinopril TAB* 10 MG PO SCH (09:00)
[2018-05-22] MEDS: Cyanocobalamin TAB* 500 MCG PO SCH (09:00)
[2018-05-22] MEDS: Polyethylene Glycol 3350* 17 GM PACKET PO SCH ×2 (09:04→20:55)
[2018-05-22] MEDS: Docusate CAP* 100 MG PO SCH ×2 (09:04→20:55)
[2018-05-22] MEDS: oxyCODONE TAB* 5 MG TAB PO PRN ×3 (09:36→18:16)
[2018-05-22] MEDS: Ondansetron ODT TAB* 4 MG SL PRN (18:17)
--- NOTE | 2018-05-22 20:19 | PN ---
Subjective Date of Service: 05/22/18 Interval History: Pt is feeling ok. She has still needed some pain medication. She got out of bed twice today. She notes that when she has had the last couple BMs she has not been able to bear down. She states the stool has been liquidy. Objective Active Medications: Acetaminophen (Tylenol Tab*) 650 mg PO Q4H PRN PRN Reason: FEVER/PAIN Last Admin: 05/21/18 16:13 Dose: 650 mg Albuterol (Ventolin Hfa Inhaler*) 2 puff INH Q4H PRN PRN Reason: SOB/WHEEZING Atorvastatin Calcium (Lipitor*) 20 mg PO BEDTIME [facility] Last Admin: 05/21/18 21:17 Dose: 20 mg Cyanocobalamin (Vitamin B12 Tab*) 500 mcg PO DAILY [facility] Last Admin: 05/22/18 09:00 Dose: 500 mcg Docusate Sodium (Colace Cap*) 100 mg PO BID [facility] Last Admin: 05/22/18 09:04 Dose: 100 mg Hydralazine HCl (Apresoline Iv*) 10 mg IV Q4H PRN PRN Reason: Systolic >170 Last Admin: 05/18/18 21:21 Dose: 10 mg Lisinopril (Prinivil Tab*) 10 mg PO DAILY [facility] Last Admin: 05/22/18 09:00 Dose: 10 mg Magnesium Hydroxide (Milk Of Magnclemencia Liq*) 30 ml PO Q2H PRN PRN Reason: CONSTIPATION Last Admin: 05/22/18 08:59 Dose: 30 ml Morphine Sulfate (Morphine Inj ((Syringe))*) 2 mg IV Q4H PRN PRN Reason: PAIN - MILD Last Admin: 05/20/18 19:11 Dose: 2 mg Ondansetron HCl (Zofran Odt Tab*) 4 mg SL Q6H PRN PRN Reason: NAUSEA/VOMITING Last Admin: 05/22/18 18:17 Dose: 4 mg Oxycodone HCl (Roxycodone Tab*) 5 mg PO Q4H PRN PRN Reason: PAIN Last Admin: 05/22/18 18:16 Dose: 5 mg Polyethylene Glycol/Electrolytes (Miralax*) 17 gm PO 0800,2100 [facility] Last Admin: 05/22/18 09:04 Dose: 17 gm Prochlorperazine Edisylate (Compazine Inj*) 10 mg IV Q6H PRN PRN Reason: NAUSEA/VOMITING Last Admin: 05/20/18 18:00 Dose: 10 mg Simethicone (Mylicon Tab*) 80 mg PO Q6H PRN PRN Reason: bloating Last Admin: 05/22/18 13:32 Dose: 80 mg Vital Signs - 8 hr 05/22/18 05/22/18 05/22/18 13:33 15:57 18:16 Temperature 98.6 F Pulse Rate 88 Respiratory 20 18 20 Rate Blood Pressure 148/53 (mmHg) O2 Sat by Pulse 96 Oximetry Oxygen Devices in Use Now: None Appearance: Elderly female sitting up in bed, NAD Eyes: No Scleral Icterus Ears/Nose/Mouth/Throat: Mucous Membranes Moist Respiratory: Symmetrical Chest Expansion and Respiratory Effort, Clear to Auscultation Cardiovascular: NL Sounds; No Murmurs; No JVD, RRR, No Edema Abdominal: - - BS+ soft, NT, moderately distended Extremities: No Clubbing, Cyanosis Skin: No Nodules or Sclerosis Neurological: Alert and Oriented x 3 Result Diagrams: 05/22/18 06:21 05/22/18 06:21 Assess/Plan/Problems-Billing Ms Oliver is an 82 yo F who has a h/o HTN, HLD, stage III CKD and anemia of CKD who is s/p mechanical fall with L1 compression fx. - Patient Problems (1) Hyponatremia Current Visit: Yes Status: Acute Code(s): E87.1 - HYPO-OSMOLALITY AND HYPONATREMIA SNOMED Code(s): 28960058 Comment: Na continues to improve with free water restriction. Follow Na level closely for continued improvement. (2) Acute blood loss anemia Current Visit: Yes Status: Acute Code(s): D62 - ACUTE POSTHEMORRHAGIC ANEMIA SNOMED Code(s): 502568388 Comment: H/H down again some today. Follow up CBC tomorrow. (3) Retroperitoneal hematoma Current Visit: Yes Status: Acute Code(s): K66.1 - HEMOPERITONEUM SNOMED Code(s): 749374310 Comment: Pt with psoas and retroperitoneal hematomas. Bleeding as above likely stopped though H/H drifting down again. Follow up CBC tomorrow and if stable can go to rehab. Continue pain control. Continue PT. (4) Compression fracture Current Visit: Yes Status: Acute Code(s): [id number] - SNOMED Code(s): 370600380 Comment: Pt is working with PT. Pain is relatively controlled. Plan for PATRICA. (5) CKD (chronic kidney disease) stage 3, GFR 30-59 ml/min Current Visit: Yes Status: Acute Code(s): N18.3 - CHRONIC KIDNEY DISEASE, STAGE 3 (MODERATE) SNOMED Code(s): 019719580 Comment: Creatinine back to baseline. Will continue to follow. (6) Constipation Current Visit: Yes Status: Acute Code(s): K59.00 - CONSTIPATION, UNSPECIFIED SNOMED Code(s): 91132051 Comment: Continue bowel regimen. Monitor for further BMs. (7) HYPERTENSION Current Visit: Yes Status: Active Comment: BP under good control. Continue lisinopril 10mg daily. (8) Hyperlipidemia Current Visit: Yes Status: Active Code(s): E78.5 - HYPERLIPIDEMIA, UNSPECIFIED SNOMED Code(s): 09886616 Comment: Continue lipitor. (9) DVT prophylaxis Current Visit: Yes Status: Acute Code(s): QUC6955 - SNOMED Code(s): 166250275 Comment: SCDs only secondary to acute blood loss anemia (10) DNR (do not resuscitate) Current Visit: Yes Status: Acute Status and Disposition: .
[2018-05-22] MEDS: Atorvastatin* 20 MG TAB PO SCH (20:55)
[2018-05-22] MEDS: Acetaminophen TAB* 325 MG PO PRN (20:55)
[2018-05-23] MEDS: Acetaminophen TAB* 325 MG PO PRN ×3 (05:51→14:08)
[2018-05-23 06:44] LABS: ABS Basophils 0 10^3/ul (0-0.2); ABS Eosinophils 0.1 10^3/ul (0-0.6); ABS Lymphocytes 0.8 10^3/ul (1.0-4.8); ABS Monocytes 0.7 10^3/ul (0-0.8); ABS Neutrophils 8.4 10^3/ul (1.5-7.7); ABS Nucleated RBC 0 10^3/ul; Eosinophil % 1.4 % (0-6); Hematocrit 22 % (35-47); Hemoglobin 7.8 g/dl (12.0-16.0); Lymphocyte % 7.9 % (25-47); Mean Corpuscular HGB Conc 35 g/dl (31-36); Mean Corpuscular Hemoglobin 33 pg (27-31); Mean Corpuscular Volume 94 fL (80-97); Mean Platelet Volume 7.8 um3 (7.4-10.4); Nucleated Red Blood Cells % 0; Platelet Count 171 10^3/ul (150-450); Red Blood Count 2.37 10^6/ul (4.00-5.40); Red Cell Distribution Width 15 % (10.5-15)
[2018-05-23 07:02] LABS: EGFR Non-African American 51.8 (>60)
[2018-05-23] MEDS: Lisinopril TAB* 10 MG PO SCH (08:09)
[2018-05-23] MEDS: Cyanocobalamin TAB* 500 MCG PO SCH (08:09)
[2018-05-23] MEDS: Simethicone TAB* 80 MG TAB.CHEW PO PRN (08:09)
[2018-05-23] MEDS: Docusate CAP* 100 MG PO SCH (08:09)
[2018-05-23] MEDS: Polyethylene Glycol 3350* 17 GM PACKET PO SCH (08:09)
--- NOTE | 2018-05-23 11:17 | RAD ---
CLINICAL HISTORY: re-evaluate RP bleed, hgb dropping COMPARISON: May 19, 2018 TECHNIQUE: Multiple contiguous axial CT scans were obtained of the abdomen and pelvis, without intravenous contrast enhancement. Coronal and sagittal multiplanar reformations are submitted for review. Oral contrast was not administered. FINDINGS: The study is limited by the lack of intravenous contrast. This limits evaluation of the solid organs and vasculature. LUNG BASES: There is a small right pleural effusion. LIVER: The liver is normal in shape, size, contour, and attenuation. BILE DUCTS: There is no intrahepatic or extrahepatic biliary dilatation. GALLBLADDER: The gallbladder is normal, without pericholecystic inflammatory change. PANCREAS: The pancreas is normal, without mass or ductal dilatation. SPLEEN: Normal in size and appearance. UPPER GI TRACT: Evaluation of the gastrointestinal tract is limited by incomplete gastric distention. The upper GI tract is unremarkable. SMALL BOWEL AND MESENTERY: The small bowel is normal in contour, course, and caliber. There is no obstruction or dilatation. COLON: The colon is normal in contour, course, caliber. There is no pericolonic inflammatory change. ADRENALS: Normal bilaterally. KIDNEYS: The kidneys are normal in shape, size, contour, and axis. There is no hydronephrosis or nephrolithiasis. BLADDER: The bladder is incompletely distended but is grossly normal. There is a small amount of gas within the lumen of the stomach consistent with recent instrumentation. PELVIC ORGANS: The pelvic organs are not visualized. AORTA: There is calcific atherosclerotic disease of the abdominal aorta and its branches, without aneurysmal dilatation IVC: Unremarkable LYMPH NODES: There is no lymphadenopathy by size criteria. ABDOMINAL WALL: There are small fat-containing inguinal hernias bilaterally. BONES AND SOFT TISSUES: Again noted is mixed attenuation material within the right psoas muscle with extension along the posterior pararenal and lateroconal fascia, extending inferiorly along the perirectal fascia. The psoas component measures approximately 6.3 x 7 cm transversely and approximately 21 cm in cranial caudal dimension. When measured at comparable levels on the previous CT examination, this is stable. Again noted is a compression fracture of L1. OTHER: None IMPRESSION: 1. STABLE RETROPERITONEAL HEMATOMA, PREDOMINANTLY WITHIN THE RIGHT PSOAS MUSCLE. 2. SMALL RIGHT PLEURAL EFFUSION. 3. ATHEROSCLEROSIS.
[2018-05-23] MEDS: Ondansetron ODT TAB* 4 MG SL PRN (13:08)
--- NOTE | 2018-05-23 14:34 | DS ---
CC: Dr. Isaac Jasso * DISCHARGE SUMMARY: DATE OF ADMISSION: 05/11/18 DATE OF DISCHARGE: 05/23/18 PRIMARY CARE PHYSICIAN: Dr. Isaac Jasso. PRINCIPAL DISCHARGE DIAGNOSES: 1. Acute blood loss anemia. 2. Retroperitoneal hematoma. 3. L1 compression fracture. 4. Mechanical fall. SECONDARY DISCHARGE DIAGNOSES: 1. Hyponatremia. 2. Chronic kidney disease. 3. Hypertension. 4. Hyperlipidemia. 5. Sciatica. 6. History of monoclonal paraproteinemia. DISCHARGE MEDICATIONS: 1. Colace 100 mg daily p.r.n. constipation. 2. Tylenol 500 mg q.6 p.r.n. pain. 3. Propylene glycol 1 drop both eyes t.i.d. p.r.n. 4. Vitamin B12 500 mcg daily. 5. [place] 5/325 one tab q.4 p.r.n. pain. 6. Fish oil 1000 mg daily. 7. Clarinex 5 mg daily. 8. Calcium with vitamin D 1 tab b.i.d. 9. Lisinopril 10 mg daily. 10. Atorvastatin 20 mg q.h.s. 11. Ipratropium bromide 0.03% both nares daily. 12. Ventolin inhaler 2 puffs q.4 p.r.n. wheezing. Discontinued medication on this admission: Aspirin 81 mg daily. PHYSICAL EXAM AT DISCHARGE: Temperature 97.9, heart rate 87, respiratory rate 18, pulse ox 99% on room air, blood pressure 134/49. General: Alert, pale female in no distress. HEENT: Pupils equal, round, and reactive to light. No nystagmus. Oral mucosa is moist. Neck: No JVD. No cervical adenopathy. Chest : Regular rate and rhythm. No murmurs. PMI nondisplaced. Lungs: Clear bilaterally. Abdomen: Soft, somewhat distended with normal bowel sounds. No guarding or rebound. A 7-cm hematoma is noted on the right flank. Extremities : No edema, no rashes, no ulcers. Neurologic: Oriented x3, strength is 5/5 in all extremities. PERTINENT IMAGING FINDINGS: Abdomen and pelvis CT on the day of discharge, 05/23/18: 1. Stable retroperitoneal hematoma predominantly within the right psoas muscle. 2. Small right pleural effusion. 3. Atherosclerosis. Brain CT: No acute findings. Renal ultrasound: Negative for right kidney hydronephrosis, 3.1-cm parapelvic cyst at the lower pole, 2.5-cm simple exophytic cyst at the lower pole cortex. CT spine, thoracic: Acute/subacute compression fracture of L1 without osseous retropulsion. HOSPITAL COURSE BY PROBLEM: 1. Acute blood loss anemia. During her admission on the night of 05/16/18, a CAT call occurred for loss of consciousness and Ms. Oliver was found to have hemoglobin drop from 10.5 to 8.5 on that same day. Imaging of her back showed a psoas hematoma and she received 2 units of packed red blood cells at that time. Her hemoglobin was trended and it did fall slightly and on the day of discharge, her discharge hemoglobin is 7.8. A repeat CT scan on 05/23/18 showed a stable hematoma without any spreading or enlarging. Her pain was well controlled. Her aspirin is currently on hold due to the hematoma. The aspirin purpose was primary prevention. It should be on hold for 1 month and then can be resumed after she is reevaluated by her physician and should not be resumed before that. 2. L1 compression fracture. This was due to a mechanical fall. There was no osseous retropulsion on her CT thoracic spine. She was admitted for pain control and received physical therapy while she was here. She is being discharged to short- term rehab. 3. Hyponatremia. Her sodium improved with fluid restriction and on the day of discharge, it was 132, nearing normal range. This should be followed and should she continue to have hyponatremia, as an outpatient Azactam should be considered for her, as it is possible this contributed to her fall if she is chronically hyponatremic. 4. Acute kidney injury on chronic kidney disease. Her creatinine peaked at 2.07 on 05/17/18 this admission, which I suspect was due to acute blood loss and at the time of discharge, it is back to her baseline at 1.02. 5. Hypertension. She was continued on her home lisinopril dose. 6. Hyperlipidemia. She was continued on Lipitor. 7. Disposition. Ms. Oliver is being discharged to short-term rehab at [facility] on 05/23/18 in good condition. She should return to the emergency department should she have worsening pain or weakness in her extremities, any other bleeding, or any other new symptoms. TIME SPENT: Sixty minutes was spent on this discharge, over half that time was spent with the patient. [id number]/[facility] #: [id number] SINT[place]
[2018-05-23 15:55] VITALS: BP 133/51
== END 2018-05-23 15:45 | DRG 552 ==
LOC: ED 12:28 → MED 17:51 → OBSVTOIN 05-11 13:50 → ICU 05-18 16:47 → SSU 05-20 20:11
PROVIDERS: ADMIT Internal Medicine; ATTEND Internal Medicine
PROC: 30233N1 Transfusion of Nonautologous Red Blood Cells into Peripheral Vein, Percutaneous Approach (ICD-10-PCS; principal; 2018-05-11)
DX: S32.019A Unspecified fracture of first lumbar vertebra, initial encounter for closed fracture (principal); E87.2 Acidosis; D62 Acute posthemorrhagic anemia; I24.8 Other forms of acute ischemic heart disease; E87.1 Hypo-osmolality and hyponatremia; S36.892A Contusion of other intra-abdominal organs, initial encounter; N17.9 Acute kidney failure, unspecified; W18.31XA Fall on same level due to stepping on an object, initial encounter; D63.1 Anemia in chronic kidney disease; N18.3 Chronic kidney disease, stage 3 (moderate); M10.9 Gout, unspecified; M54.30 Sciatica, unspecified side; M19.90 Unspecified osteoarthritis, unspecified site; J30.9 Allergic rhinitis, unspecified; E78.5 Hyperlipidemia, unspecified; I12.9 Hypertensive chronic kidney disease with stage 1 through stage 4 chronic kidney disease, or unspecified chronic kidney disease; Z66 Do not resuscitate; J45.909 Unspecified asthma, uncomplicated; N28.1 Cyst of kidney, acquired; K59.00 Constipation, unspecified; R94.31 Abnormal electrocardiogram [ECG] [EKG]; R40.0 Somnolence; R74.8 Abnormal levels of other serum enzymes; R11.0 Nausea; Y92.89 Other specified places as the place of occurrence of the external cause; Z88.8 Allergy status to other drugs, medicaments and biological substances; Z88.2 Allergy status to sulfonamides; Z91.041 Radiographic dye allergy status; Z91.013 Allergy to seafood; Z82.49 Family history of ischemic heart disease and other diseases of the circulatory system; Z82.3 Family history of stroke; Z98.42 Cataract extraction status, left eye; Z98.41 Cataract extraction status, right eye
CPT/HCPCS: 36415; 36600; 70450; 72125; 72128; 72148; 74018; 74019; 74176; 76775; 80048; 80051; 80053; 81003; 82140; 82550; 82803; 83605; 83735; 83880; 83930; 83935; 84300; 84484; 85014; 85018; 85025; 85027; 85610; 86850; 86900; 86901; 86922; 93005; 99284; A9270-GY; G8978-GP-CK; G8978-GP-CL; G8979-GP-CI; G8987-GO-CK; G8988-GO-CI; G8989-GO-CI; J0360; J0780; J1644; J1940; J2270; J2310; P9040

== ENCOUNTER 2018-06-18 04:24 | Emergency (ER) | payer MEDICARE ==
--- NOTE | 2018-06-18 04:41 | ED ---
Complex/Multi-Sys Presentation - HPI Summary HPI Summary: A 82 y/o female BIBA c/o nausea (intermittent), constipation and dizziness. In the ED room, the patient has a pulse of 92 BPM, O2 saturation of 92% and blood pressure of 148/69. As per triage, "pt here from home with bloating and nausea. Pt on pain meds for right hip pain r/t fall in April.Pt here by EMS". According to the patient, she got out of bed earlier this morning which is when she felt "wobbly" (dizziness) and felt funny. She wasn't sure if she was gonna even make it into bed. She denied any room-spinning, however things were "fuzzy" for her. She noted that laying down alleviates the symptoms. Pt denies any diarrhea. She stated that she has been battling constipation since being home for the past 1- 2 weeks. She was admitted in April for a fall which damaged her vertebrae. She also has bruises down the right side of her body. About a day or two before she was going to be released, she passed out on the floor when she was going to the bathroom which led to the discovery of internal bleeding. She was then placed in the ICU for 5 days, given 6 units of blood. She was then put in [facility] for 2 weeks. Currently still taking Hydrocodone. Lives alone. - History Of Current Complaint Chief Complaint: EDNauseaVomitDiarrh Time Seen by Provider: 06/18/18 04:36 Hx Obtained From: Patient Onset/Duration: Lasting Weeks, Still Present Timing: Constant, Intermittent, Lasting: - Nausea Severity Currently: None Location: Negative Aggravating Factor(s): NOTHING Alleviating Factor(s): LAYING DOWN Associated Signs And Symptoms: Positive: Dizziness, Nausea. Negative: Fever - Allergies/Home Medications Allergies/Adverse Reactions: Allergies Allergy/AdvReac Type Severity Reaction Status Date / Time iodixanol [From Visipaque] Allergy Rash And Verified 06/18/18 04:29 Itching shellfish derived Allergy Nausea Verified 06/18/18 04:29 citalopram AdvReac Intermediate Nausea Verified 06/18/18 04:29 Sulfa (Sulfonamide AdvReac Intermediate Rash Verified 06/18/18 04:29 Antibiotics) PMH/Surg Hx/FS Hx/Imm Hx Endocrine/Hematology History: Reports: Other Endocrine/Hematological Disorders - anemia of renal disease, monoclonal proteinemia Denies: Hx Diabetes, Hx Anemia Cardiovascular History: Reports: Hx Hypercholesterolemia, Hx Hypertension Denies: Hx Pacemaker/ICD Respiratory History: Reports: Hx Asthma, Other Respiratory Problems/Disorders - allergic rhinitis Denies: Hx Chronic Obstructive Pulmonary Disease (COPD) GI History: Denies: Hx Jaundice History: Reports: Hx Chronic Renal Failure - CKD stage 3 Musculoskeletal History: Reports: Hx Arthritis - osteoarthritis, Hx Gout Denies: Hx Osteoporosis Sensory History: Reports: Hx Cataracts - cataract surgery 2007, Hx Contacts or Glasses Denies: Hx Hearing Aid Opthamlomology History: Reports: Hx Cataracts - cataract surgery 2007, Hx Contacts or Glasses Psychiatric History: Denies: Hx Panic Disorder - Surgical History Surgery Procedure, Year, and Place: cataracts Infectious Disease History: No Infectious Disease History: Denies: Traveled Outside the [place] in Last 30 Days - Family History Known Family History: Positive: Cardiac Disease, Diabetes, Other - [place], CVA, arthritis, melanoma, - Social History Alcohol Use: None Hx Substance Use: No Substance Use Type: Reports: None Hx Tobacco Use: No Smoking Status (MU): Never Smoked Tobacco Review of Systems Negative: Fever Positive: Nausea, Other - POSITIVE: Constipation. Negative: Diarrhea Neurological: Other - POSITIVE: Dizziness All Other Systems Reviewed And Are Negative: Yes Physical Exam - Summary Physical Exam Summary: VITAL SIGNS: Reviewed. GENERAL: Patient is a well-developed and nourished female who is lying comfortable in the stretcher. Patient is not in any acute respiratory distress. HEAD AND FACE: No signs of trauma. No ecchymosis, hematomas or skull depressions. No sinus tenderness. EYES: PERRLA, EOMI x 2, No injected conjunctiva, no nystagmus. EARS: Hearing grossly intact. Ear canals and tympanic membranes are within normal limits. MOUTH: Oropharynx within normal limits. NECK: Supple, trachea is midline, no adenopathy, no JVD, no carotid bruit, no c- spine tenderness, neck with full ROM. CHEST: Symmetric, no tenderness at palpation LUNGS: Clear to auscultation bilaterally. No wheezing or crackles. CVS: Regular rate and rhythm, S1 and S2 present, no murmurs or gallops appreciated. ABDOMEN: Soft, non-tender. Abdominal distention. No rebound no guarding, and no masses palpated. Hyperactive bowel sounds. EXTREMITIES: FROM in all major joints, no edema, no cyanosis or clubbing. NEURO: Alert and oriented x 3. No acute neurological deficits. Speech is normal and follows commands. SKIN: Dry and warm RECTAL: Empty rectal, external hemorrhoids. Triage Information Reviewed: Yes Vital Signs On Initial Exam: Initial Vitals Temp Pulse Resp BP Pulse Ox 99 F 89 14 148/69 98 06/18/18 04:31 06/18/18 04:31 06/18/18 04:31 06/18/18 04:31 06/18/18 04:31 Vital Signs Reviewed: Yes Diagnostics - Vital Signs Vital Signs Temp Pulse Resp BP Pulse Ox 06/18/18 04:32 88 20 148/69 98 06/18/18 04:31 99 F 89 14 148/69 98 - Laboratory Result Diagrams: 06/18/18 05:21 06/18/18 05:21 Lab Statement: Any lab studies that have been ordered have been reviewed, and results considered in the medical decision making process. Re-Evaluation - Re-Evaluation First Eval Re-Evaluation Time: 06:30 Change: Improved Comment: Patient is able to ambulate at her baseline. Complex Multi-Symp Course/Dx Course Of Treatment: A 82 y/o female BIBA c/o nausea (intermittent), constipation and dizziness. In the ED room, the patient has a pulse of 92 BPM, O2 saturation of 92% and blood pressure of 148/69. No laboratory scans were done. Blood work was done. In the ED course, the patient received Zofran and IV fluids. During reevaluation, the patient was able to ambulate on her own at her baseline. Patient is asymptomatic at this time. Patient has Zofran at home. Patient will be discharged with a diagnosis of nasuea and vomiting. Patient is to follow up with PCP in 1-2 days. Patient is agreeable with this plan. - Diagnoses Provider Diagnoses: Nausea and vomiting Discharge - Sign-Out/Discharge Documenting (check all that apply): Patient Departure - DISCHARGE - Discharge Plan Condition: Stable Disposition: HOME Patient Education Materials: Acute Nausea and Vomiting (ED) Referrals: Samuel Dinero MD [Primary Care Provider] - 2 Days Additional Instructions: FOLLOW UP WITH PRIMARY CARE PHYSICIAN IN 1-2 DAYS. RETURN TO ED FOR ANY NEW OR WORSENING SYMPTOMS. - Attestation Statements Document Initiated by Scribe: Yes Documenting Scribe: Meliton Dickson Provider For Whom Scribe is Documenting (Include Credential): Marco A Hatfield Scribsharan Attestation: IMeliton, scribed for Marco A Hatfield on 06/18/18 at 0633.
[2018-06-18] MEDS ORDERED: NS 0.9% 1000 ML* 1,000 ML IV ONE (04:58)
[2018-06-18] MEDS ORDERED: Ondansetron INJ* 2 MG/ML VIAL IV ONE (04:58)
[2018-06-18 05:52] LABS: ABS Basophils 0 10^3/ul (0-0.2); ABS Eosinophils 0 10^3/ul (0-0.6); ABS Lymphocytes 1.1 10^3/ul (1.0-4.8); ABS Monocytes 0.4 10^3/ul (0-0.8); ABS Neutrophils 3.3 10^3/ul (1.5-7.7); ABS Nucleated RBC 0 10^3/ul; Eosinophil % 0.6 % (0-6); Hematocrit 31 % (35-47); Hemoglobin 10.5 g/dl (12.0-16.0); Lymphocyte % 22.6 % (25-47); Mean Corpuscular HGB Conc 34 g/dl (31-36); Mean Corpuscular Hemoglobin 33 pg (27-31); Mean Corpuscular Volume 96 fL (80-97); Mean Platelet Volume 8.2 um3 (7.4-10.4); Nucleated Red Blood Cells % 0; Platelet Count 180 10^3/ul (150-450); Red Blood Count 3.24 10^6/ul (4.00-5.40); Red Cell Distribution Width 16 % (10.5-15); White Blood Count 4.9 10^3/ul (3.5-10.8)
[2018-06-18 06:06] LABS: INR 0.96 (0.77-1.02)
[2018-06-18 06:21] LABS: EGFR Non-African American 55.5 (>60)
[2018-06-18 06:25] VITALS: BP 109/55
[2018-06-18 06:35] LABS: Urine Appearance Clear; Urine Blood Negative (Negative); Urine Color Colorless; Urine Ketones Negative (Negative); Urine Protein Negative (Negative); Urine Specific Gravity 1.002 (1.010-1.030); Urine Urobilinogen Negative (Negative)
== END 2018-06-18 06:47 | disposition home or self-care (01) ==
LOC: ED 04:24
DX: R42 Dizziness and giddiness (principal); R11.2 Nausea with vomiting, unspecified; K59.00 Constipation, unspecified
CPT/HCPCS: 36415; 80053; 81003; 82150; 83690; 83735; 85025; 85610; 96374; 96375; 99283; J2405

== ENCOUNTER 2018-10-25 03:39 | Emergency (ER) | payer MEDICARE ==
[2018-10-25] MEDS ORDERED: Acetaminophen TAB* 325 MG PO ONE (04:24)
--- NOTE | 2018-10-25 04:24 | ED ---
Headache - HPI Summary HPI Summary: This patient is a 83 year [facility] F [facility] a woman with a chief complaint of high blood pressure since 10/22/18. The patient rates the pain 8/10 in severity. Patient reports intermittent ISAACS, fatigue, and bilateral LE edema. Patient denies fever, vision difficulties, vomiting, CP, abdominal pain, or difficulty eating. The ISAACS is located near the base of her skull and to both sides of her head. The patient uses a cane to ambulate and has not had difficulties with it. She mentions that she fell in March, crushing her vertebrae and damaging her hip. She does physical therapy for these injuries. One of her close friends has a cold. The patient did not try any OTC medication before coming to the ED. PMHX HTN, Sciatica. No PMHx migraines. SHX lives alone. RX Lisinopril. Vitals in the room: BP 188/83. - History Of Current Complaint Chief Complaint: EDHypertension Stated Complaint: HIGH BLOOD PRESSURE Time Seen by Provider: 10/25/18 03:51 Hx Obtained From: Patient Onset/Duration: Sudden Onset, Started days ago Initially Headache Was: Moderate Currently Pain Is: Severe - 8/10 Timing: Constant, Days Character: Throbbing Location of Headache: Other: - base of neck, sides of head - Risk Factors SAH Risk Factors: Hypertension - Allergies/Home Medications Allergies/Adverse Reactions: Allergies Allergy/AdvReac Type Severity Reaction Status Date / Time iodixanol [From Visipaque] Allergy Rash And Verified 10/25/18 03:48 Itching shellfish derived Allergy Nausea Verified 10/25/18 03:48 citalopram AdvReac Intermediate Nausea Verified 10/25/18 03:48 Sulfa (Sulfonamide AdvReac Intermediate Rash Verified 10/25/18 03:48 Antibiotics) PMH/Surg Hx/FS Hx/Imm Hx Endocrine/Hematology History: Reports: Other Endocrine/Hematological Disorders - anemia of renal disease, monoclonal proteinemia Denies: Hx Diabetes, Hx Anemia Cardiovascular History: Reports: Hx Hypercholesterolemia, Hx Hypertension Denies: Hx Pacemaker/ICD Respiratory History: Reports: Hx Asthma, Other Respiratory Problems/Disorders - allergic rhinitis Denies: Hx Chronic Obstructive Pulmonary Disease (COPD) GI History: Denies: Hx Jaundice History: Reports: Hx Chronic Renal Failure - CKD stage 3 Musculoskeletal History: Reports: Hx Arthritis - osteoarthritis, Hx Gout Denies: Hx Osteoporosis Sensory History: Reports: Hx Cataracts - cataract surgery 2007, Hx Contacts or Glasses Denies: Hx Hearing Aid Opthamlomology History: Reports: Hx Cataracts - cataract surgery 2007, Hx Contacts or Glasses Psychiatric History: Denies: Hx Panic Disorder - Surgical History Surgery Procedure, Year, and Place: cataracts Infectious Disease History: No Infectious Disease History: Denies: Traveled Outside the [place] in Last 30 Days - Family History Known Family History: Positive: Cardiac Disease, Diabetes, Other - [place], CVA, arthritis, melanoma, Negative: Blood Disorder - Social History Alcohol Use: None Hx Substance Use: No Substance Use Type: Reports: None Hx Tobacco Use: No Smoking Status (MU): Never Smoked Tobacco Review of Systems Positive: Fatigue. Negative: Fever Negative: Blurred Vision Negative: Chest Pain Negative: Abdominal Pain, Vomiting, Other - difficulty eating Positive: Edema - LE Positive: Headache All Other Systems Reviewed And Are Negative: Yes Physical Exam - Summary Physical Exam Summary: Appearance: Well-appearing, Well-nourished, lying in bed comfortably Skin: Warm, dry, no obvious rash Eyes: sclera anicteric, no conjunctival pallor ENT: mucous membranes moist, pharynx appears normal Neck: Supple, nontender Respiratory: Clear to auscultation, no signs of respiratory distress Cardiovascular: Normal S1, S2. No murmurs. Normal distal pulses in tibial and radial bilaterally. Abdomen: Soft, nontender, normal active bowel sounds present Musculoskeletal: Normal, Strength/ROM Intact, Motor function in all 4 extremities is normal and symmetric. There is no rigidity or tremor noted. Neurological: A&Ox3, awake and alert, mentation is normal, speech is fluent and appropriate, Level of consciousness nml. The patient is alert and oriented. Cranial nerves are grossly intact. Gaze is conjugate and without nystagmus. Peripheral vision is intact to confrontation. There are no gross sensory abnormalities to light touch. There is no truncal or fine motor ataxia. Gait is normal. Psychiatric: affect is normal, does not appear anxious or depressed GCS: 15 Triage Information Reviewed: Yes Vital Signs On Initial Exam: Initial Vitals Temp Pulse Resp BP Pulse Ox 97.1 F 80 16 154/69 99 10/25/18 03:40 10/25/18 03:40 10/25/18 03:40 10/25/18 03:40 10/25/18 03:40 Vital Signs Reviewed: Yes Diagnostics - Vital Signs Vital Signs Temp Pulse Resp BP Pulse Ox 10/25/18 03:40 97.1 F 80 16 154/69 99 - Laboratory Result Diagrams: 10/25/18 04:27 10/25/18 04:26 Lab Statement: Any lab studies that have been ordered have been reviewed, and results considered in the medical decision making process. - CT brain ct CT Interpretation Completed By: Radiologist Summary of CT Findings: IMPRESSION: 1. Mild volume loss and small vessel ischemic changes. . 2. No acute intracranial abnormality. THIS REPORT WAS REVIEWED BY ED PHYSICIAN. - EKG 04:38 Cardiac Rate: NL - 70 bpm EKG Rhythm: Sinus Rhythm Summary of EKG Findings: P waves, QRS complex, and T waves are within normal limits, T waves and intervals are normal, no ischemic changes. Headache Course/Dx - Course Course Of Treatment: This patient is a 83 year old F presenting to [facility] accompanied by a woman with a chief complaint of high blood pressure since . The patient rates the pain 8/10 in severity. Patient reports intermittent ISAACS , fatigue, and bilateral LE edema. Patient denies fever, vision difficulties, vomiting, CP, abdominal pain, or difficulty eating. The ISAACS is located near the base of her skull and to both sides of her head. An EKG reveals NSR 70 bpm, P waves, QRS complex, and T waves are within normal limits, T waves and intervals are normal, no ischemic changes. Test results with no significant abnormalities. In the ED course the patient was given Acetaminophen. The patient will be signed out by Dr. Guzman to Dr. Delacruz, awaiting brain CT results. The patient's blood pressure has stabilized. Laboratory testing and CT scan have been unremarkable, including a minimally elevated sedimentation rate, effectively ruling out temporal arteritis. - Diagnoses Provider Diagnoses: Headache, Hypertension Discharge - Sign-Out/Discharge Documenting (check all that apply): Patient Departure - discharge - Discharge Plan Condition: Stable Disposition: HOME Patient Education Materials: Acute Headache (ED), Hypertension (ED) Referrals: Samuel Dinero MD [Primary Care Provider] - Additional Instructions: Your blood pressure has been running high due to the pain from your headache, it is not causing the headache. The tests we did this morning did not show any sign of a serious cause of the headache and your BP has stabilized. - Billing Disposition and Condition Condition: STABLE Disposition: Home - Attestation Statements Document Initiated by Denise: Yes Documenting Scribe: Jose Courtney Provider For Whom Denise is Documenting (Include Credential): Edilson Guzman MD Scribe Attestation: IJose, scribed for Edilson Guzman MD on 10/25/18 at 1837. Scribe Documentation Reviewed: Yes Provider Attestation: The documentation as recorded by the danaibsharan, Jose Courtney accurately reflects the service I personally performed and the decisions made by me, Edilson Guzman MD Status of Scribe Document: Viewed
[2018-10-25 04:37] LABS: ABS Basophils 0 10^3/ul (0-0.2); ABS Eosinophils 0.1 10^3/ul (0-0.6); ABS Monocytes 0.3 10^3/ul (0-0.8); ABS Neutrophils 3.4 10^3/ul (1.5-7.7); ABS Nucleated RBC 0 10^3/ul; Eosinophil % 1.7 %; Hematocrit 33 % (35-47); Hemoglobin 11.1 g/dl (12.0-16.0); Lymphocyte % 21.1 %; Mean Corpuscular HGB Conc 34 g/dl (31-36); Mean Corpuscular Hemoglobin 32 pg (27-31); Mean Corpuscular Volume 93 fL (80-97); Mean Platelet Volume 8.3 fL (7.4-10.4); Nucleated Red Blood Cells % 0; Platelet Count 123 10^3/ul (150-450); Red Blood Count 3.52 10^6/ul (4.00-5.40); Red Cell Distribution Width 13 % (10.5-15); White Blood Count 4.8 10^3/ul (3.5-10.8)
[2018-10-25 04:57] LABS: Albumin 4.4 g/dL (3.2-5.2); Albumin/Globulin Ratio 1.6 (1-3); BUN/Creatinine Ratio 24.1 (8-20); Calcium 10.4 mg/dL (8.6-10.3); EGFR Non-African American 44.5 (>60); Globulin 2.7 g/dL (2-4); Potassium 4.2 mmol/L (3.5-5.0); Total Bilirubin 0.7 mg/dL (0.2-1.0); Total Protein 7.1 g/dL (6.4-8.9)
[2018-10-25 05:13] LABS: Erythrocyte Sed Rate 43 mm/Hr (0-40)
[2018-10-25 07:10] VITALS: BP 120/64
== END 2018-10-25 07:15 | disposition home or self-care (01) ==
LOC: ED 03:39
DX: R51 Headache (principal); I10 Essential (primary) hypertension; R53.83 Other fatigue; Z88.2 Allergy status to sulfonamides
CPT/HCPCS: 36415; 70450; 80053; 85025; 85652; 93005; 99283; A9270-GY